=== PATIENT | male | born 1955 | race Caucasian/White ===

== ENCOUNTER → 2017-08-15 | Outpatient (CLI) | payer OTHER, SELFPAY | PROVIDERS: Visit Provider Emergency Medicine | DX: Z79.899 Other long term (current) drug therapy (principal) | CPT/HCPCS: 80305; 80364 ==

== ENCOUNTER → 2017-09-15 10:02 | Outpatient (REF) | payer OTHER, SELFPAY ==
[2017-09-15 14:53] LABS: Amphetamine/Metha Screen,Urine Negative ng/mL (<1000); Barbiturates Screen,Urine Negative ng/mL (<200); Benzodiazepines Screen,Urine Negative ng/mL (200); Cannabinoid Screen,Urine Negative ng/mL (<50); Cocaine Screen,Urine Negative ng/g (<300); Methadone Screen,Urine Negative ng/mL (<300); Opiate Screen,Urine Negative ng/mL (<300); Phencyclidine Screen,Urine Negative ng/mL (<25)
== END ==
LOC: LAB 10:02
PROVIDERS: Visit Provider Emergency Medicine
DX: Z79.899 Other long term (current) drug therapy (principal)
CPT/HCPCS: 80305

== ENCOUNTER → 2017-09-28 09:38 | Outpatient (POV) | payer OTHER, SELFPAY | PROVIDERS: PCP Emergency Medicine; Visit Provider Dermatology | DX: Z00.00 Encounter for general adult medical examination without abnormal findings (principal) ==

== ENCOUNTER → 2017-10-13 11:11 | Outpatient (CLI) | payer OTHER, SELFPAY ==
[2017-10-13 19:18] LABS: Amphetamine/Metha Screen,Urine Negative ng/mL (<1000); Barbiturates Screen,Urine Negative ng/mL (<200); Benzodiazepines Screen,Urine Negative ng/mL (200); Cannabinoid Screen,Urine Negative ng/mL (<50); Cocaine Screen,Urine Negative ng/g (<300); Methadone Screen,Urine Negative ng/mL (<300); Opiate Screen,Urine Negative ng/mL (<300); Phencyclidine Screen,Urine Negative ng/mL (<25)
== END ==
PROVIDERS: Visit Provider Emergency Medicine
DX: Z79.899 Other long term (current) drug therapy (principal)
CPT/HCPCS: 80305

== ENCOUNTER → 2017-10-30 12:09 | Outpatient (REF) | payer OTHER, SELFPAY | LOC: LAB 12:09 | PROVIDERS: Visit Provider Emergency Medicine | DX: N39.0 Urinary tract infection, site not specified (principal) | CPT/HCPCS: 87086 ==

== ENCOUNTER → 2017-11-17 13:20 | Outpatient (REF) | payer OTHER, SELFPAY ==
[2017-11-17 19:07] LABS: Amphetamine/Metha Screen,Urine Negative ng/mL (<1000); Barbiturates Screen,Urine Negative ng/mL (<200); Benzodiazepines Screen,Urine Negative ng/mL (200); Cannabinoid Screen,Urine Negative ng/mL (<50); Cocaine Screen,Urine Negative ng/g (<300); Methadone Screen,Urine Negative ng/mL (<300); Opiate Screen,Urine Negative ng/mL (<300); Phencyclidine Screen,Urine Negative ng/mL (<25)
== END ==
LOC: LAB 13:20
PROVIDERS: Visit Provider Emergency Medicine
DX: Z79.899 Other long term (current) drug therapy (principal)
CPT/HCPCS: 80305

== ENCOUNTER → 2017-12-15 09:01 | Outpatient (REF) | payer OTHER, SELFPAY ==
[2017-12-15 14:09] LABS: Basophils # 0.1 K/mm3 (0-0.2); Basophils % 0.7 % (0.1-2.0); Eosinophils # 0.2 K/mm3 (0.0-0.4); Eosinophils % 2.4 % (0.1-12.0); Hematocrit 51.5 % (42.0-52.0); Hemoglobin 16.5 g/dL (14.1-18.0); Lymphocytes # 2.8 K/mm3 (0.7-4.5); Lymphocytes % 35.1 K/mm3 (10-50); Mean Corpuscular Hemoglobin 31.7 pg (27.0-31.2); Mean Platelet Volume 8.4 fl (7.4-10.4); Monocytes # 0.5 K/mm3 (0.1-1.0); Monocytes % 5.7 % (1.7-9.3); Neutrophils # 4.5 K/mm3 (1.8-7.8); Neutrophils % 56.1 % (37.0-80.0); Platelet Count 343 K/mm3 (142-424); Red Cell Distribution Width 14.8 % (11.5-17.5); White Blood Count 8.1 K/mm3 (4.8-10.8)
[2017-12-15 14:40] LABS: Amphetamine/Metha Screen,Urine Negative ng/mL (<1000); Barbiturates Screen,Urine Negative ng/mL (<200); Benzodiazepines Screen,Urine Negative ng/mL (200); Cannabinoid Screen,Urine Negative ng/mL (<50); Cocaine Screen,Urine Negative ng/g (<300); Methadone Screen,Urine Negative ng/mL (<300); Opiate Screen,Urine Negative ng/mL (<300); Phencyclidine Screen,Urine Negative ng/mL (<25)
[2017-12-15 15:02] LABS: Alanine Aminotransferase 20 U/L (12-78); Albumin Level 4.2 gm/dL (3.4-5.0); Albumin/Globulin Ratio 1.2 (1.1-1.8); Alkaline Phosphatase 92 U/L (46-116); Anion Gap 16.7 mEq/L (5-15); Aspartate Amino Transferase 17 U/L (15-37); Bilirubin,Total 0.4 mg/dL (0.2-1.0); Blood Urea Nitrogen 9 mg/dL (7-18); Calcium 9.4 mg/dL (8.5-10.1); Carbon Dioxide 26 mmol/L (21.0-32.0); Chloride 104 mmol/L (98-107); Chol/HDL Ratio 4.4 (1-3.5); Cholesterol 227 mg/dL (140-200); Creatinine,Serum 0.84 mg/dL (0.70-1.30); Estimated Glomerular Filt Rate 93 ml/min (>60); GFR (African American) 112 ML/MIN (>60); Globulin 3.6 gm/dl (1.3-3.2); Glucose 121 mg/dL (74-106); HDL Cholesterol 52 mg/dL (27-67); LDL Cholesterol 164 mg/dL (0-130); Potassium 4.7 mmoL/L (3.5-5.1); Sodium 142 mmol/L (136-145); Total Protein,Serum 7.8 gm/dL (6.4-8.2); Triglycerides 54 mg/dL (30-200); VLDL Cholesterol 11 mg/dL (0-40)
[2017-12-17 18:48] LABS: PSA, Free 0.12 ng/mL; Prostate Specific Ag 0.5 ng/mL (0.0-4.0)
== END ==
LOC: LAB 09:01
PROVIDERS: Visit Provider Emergency Medicine
DX: Z79.899 Other long term (current) drug therapy (principal); I10 Essential (primary) hypertension
CPT/HCPCS: 80053; 80061; 80305; 82652; 84153; 84154; 85025

== ENCOUNTER → 2018-02-09 15:47 | Outpatient (CLI) | payer BC, SELFPAY ==
[2018-02-09 18:37] LABS: Amphetamine/Metha Screen,Urine Negative ng/mL (<1000); Barbiturates Screen,Urine Negative ng/mL (<200); Benzodiazepines Screen,Urine Negative ng/mL (200); Cannabinoid Screen,Urine Positive ng/mL (<50); Cocaine Screen,Urine Negative ng/g (<300); Methadone Screen,Urine Negative ng/mL (<300); Opiate Screen,Urine Positive ng/mL (<300); Phencyclidine Screen,Urine Negative ng/mL (<25)
== END ==
PROVIDERS: Visit Provider Emergency Medicine
DX: Z79.899 Other long term (current) drug therapy (principal)
CPT/HCPCS: 80305

== ENCOUNTER → 2018-03-01 09:13 | Outpatient (POV) | payer BC, SELFPAY | PROVIDERS: Visit Provider Dermatology | DX: Z00.00 Encounter for general adult medical examination without abnormal findings (principal) ==

== ENCOUNTER → 2018-03-14 10:44 | Outpatient (REF) | payer BC, SELFPAY ==
[2018-03-14 18:36] LABS: Amphetamine/Metha Screen,Urine Negative ng/mL (<1000); Barbiturates Screen,Urine Negative ng/mL (<200); Benzodiazepines Screen,Urine Negative ng/mL (<200); Cannabinoid Screen,Urine Positive ng/mL (<50); Cocaine Screen,Urine Negative ng/mL (<300); Methadone Screen,Urine Negative ng/mL (<300); Opiate Screen,Urine Negative ng/mL (<300); Phencyclidine Screen,Urine Negative ng/mL (<25)
== END ==
LOC: LAB 10:44
PROVIDERS: Visit Provider Emergency Medicine
DX: Z79.899 Other long term (current) drug therapy (principal)
CPT/HCPCS: 80305

== ENCOUNTER → 2018-04-13 11:14 | Outpatient (REF) | payer BC, SELFPAY ==
[2018-04-13 14:40] LABS: Amphetamine/Metha Screen,Urine Negative ng/mL (<1000); Barbiturates Screen,Urine Negative ng/mL (<200); Benzodiazepines Screen,Urine Negative ng/mL (<200); Cannabinoid Screen,Urine Positive ng/mL (<50); Cocaine Screen,Urine Negative ng/mL (<300); Methadone Screen,Urine Negative ng/mL (<300); Opiate Screen,Urine Negative ng/mL (<300); Phencyclidine Screen,Urine Negative ng/mL (<25)
== END ==
LOC: LAB 11:14
PROVIDERS: Visit Provider Emergency Medicine
DX: Z79.899 Other long term (current) drug therapy (principal)
CPT/HCPCS: 80305

== ENCOUNTER → 2018-05-11 11:39 | Outpatient (CLI) | payer BC, SELFPAY ==
[2018-05-11 18:43] LABS: Amphetamine/Metha Screen,Urine Negative ng/mL (<1000); Barbiturates Screen,Urine Negative ng/mL (<200); Benzodiazepines Screen,Urine Negative ng/mL (<200); Cannabinoid Screen,Urine Negative ng/mL (<50); Cocaine Screen,Urine Negative ng/mL (<300); Methadone Screen,Urine Negative ng/mL (<300); Opiate Screen,Urine Positive ng/mL (<300); Phencyclidine Screen,Urine Negative ng/mL (<25)
== END ==
PROVIDERS: Visit Provider Emergency Medicine
DX: Z79.899 Other long term (current) drug therapy (principal)
CPT/HCPCS: 80305

== ENCOUNTER → 2018-05-29 08:01 | Outpatient (POV) | payer BC, SELFPAY | PROVIDERS: Visit Provider Dermatology | DX: Z00.00 Encounter for general adult medical examination without abnormal findings (principal) ==

== ENCOUNTER → 2018-05-29 13:24 | Outpatient (CLI) | payer BC, SELFPAY ==
[2018-05-29 14:57] VITALS: PULSE 78; PULSE 84
== END ==
PROVIDERS: PCP Emergency Medicine; Visit Provider Emergency Medicine
DX: R05 Cough (principal)
CPT/HCPCS: 94060; 94640

== ENCOUNTER → 2018-06-13 10:52 | Outpatient (REF) | payer BC, SELFPAY ==
[2018-06-13 15:25] LABS: Amphetamine/Metha Screen,Urine Negative ng/mL (<1000); Barbiturates Screen,Urine Negative ng/mL (<200); Benzodiazepines Screen,Urine Negative ng/mL (<200); Cannabinoid Screen,Urine Positive ng/mL (<50); Cocaine Screen,Urine Negative ng/mL (<300); Methadone Screen,Urine Negative ng/mL (<300); Opiate Screen,Urine Positive ng/mL (<300); Phencyclidine Screen,Urine Negative ng/mL (<25)
== END ==
LOC: LAB 10:52
PROVIDERS: PCP Emergency Medicine; Visit Provider Emergency Medicine
DX: Z79.899 Other long term (current) drug therapy (principal)
CPT/HCPCS: 80305

== ENCOUNTER → 2018-07-11 13:48 | Outpatient (CLI) | payer BC, SELFPAY ==
[2018-07-11 14:35] LABS: Amphetamine/Metha Screen,Urine Negative ng/mL (<1000); Barbiturates Screen,Urine Negative ng/mL (<200); Benzodiazepines Screen,Urine Negative ng/mL (<200); Cannabinoid Screen,Urine Negative ng/mL (<50); Cocaine Screen,Urine Negative ng/mL (<300); Methadone Screen,Urine Negative ng/mL (<300); Opiate Screen,Urine Negative ng/mL (<300); Phencyclidine Screen,Urine Negative ng/mL (<25)
== END ==
PROVIDERS: Visit Provider Emergency Medicine
DX: Z79.899 Other long term (current) drug therapy (principal)
CPT/HCPCS: 80305

== ENCOUNTER → 2018-07-17 10:09 | Outpatient (CLI) | payer BC, SELFPAY ==
--- NOTE | 2018-07-17 10:14 | XR_ITS ---
XR shoulder RT min 2V HISTORY: Right shoulder pain ITS.REASON: axillary, ap and scapular y views ORDERING PHYSICIAN: Sushila Tillman MD PATIENT AGE: 63 years FINDINGS: No fracture or dislocation. No lytic or blastic change. There is normal mineralization. The joint spaces are well-preserved. No significant degenerative/arthritic changes. No erosive changes evident. IMPRESSION: Negative, no acute finding
== END ==
PROVIDERS: PCP Emergency Medicine; Visit Provider Orthopaedic Surgery
DX: M25.511 Pain in right shoulder (principal)
CPT/HCPCS: 73030

== ENCOUNTER → 2018-08-10 13:58 | Outpatient (CLI) | payer BC, SELFPAY ==
[2018-08-10 16:32] LABS: Amphetamine/Metha Screen,Urine Negative ng/mL (<1000); Barbiturates Screen,Urine Negative ng/mL (<200); Benzodiazepines Screen,Urine Negative ng/mL (<200); Cannabinoid Screen,Urine Negative ng/mL (<50); Cocaine Screen,Urine Negative ng/mL (<300); Methadone Screen,Urine Negative ng/mL (<300); Opiate Screen,Urine Positive ng/mL (<300); Phencyclidine Screen,Urine Negative ng/mL (<25)
[2018-08-18 15:13] LABS: Oxycodone (GC/MS) >100 ng/mL (Cutoff=100)
[2018-08-19 21:26] LABS: Opiates Negative (Cutoff=100); Oxymorphone (GC/MS) >100 ng/mL (Cutoff=100)
== END ==
PROVIDERS: Visit Provider Emergency Medicine
DX: Z79.899 Other long term (current) drug therapy (principal)
CPT/HCPCS: 80305; 80361; 80365; G0480

== ENCOUNTER 2018-08-16 08:00 | Outpatient (RCR) | payer BC, SELFPAY ==
--- NOTE | 2018-07-24 08:30 | HMH.OTOPEV ---
OT Inpatient Evaluation Rehab OT Outpatient Eval Start: 07/24/18 08:12 Freq: Status: Active Protocol: Document 07/24/18 08:12 TFRY (Rec: 07/24/18 08:30 TFRY [id number]) Electronically Signed By Kenyatta Caldwell OT 07/24/18 08:12 Outpatient Therapy Subjective History Subjective History THIS IS A 63 YEAR OLD RIGHT HANDED MALE REFERRED TO OCCUPATIONAL THERAPY FOR RIGHT SHOULDER PAIN, SUSPECT RUPTURE/TEAR OF LHBT VS. RTC TEAR H/O RTCT 2002. PATIENT REPORTS INJURING HIS SHOULDER APPROXIMATELY 3 WEEKS AGO. HE REPORTED THAT HE SAW THE DOCTOR LAST WEEK AND HAD AN INJECTION THAT HAS HELPED. Chief Complaint Pain Symptom Type Ache Throb Symptoms Relieved By Rest/Positioning Symptoms Aggravated By Physical Activity Prior Functional Limitations None Current Functional Limitations None Symptom Description Intermittent Level of pain today (0-10) 0 Pain scale - at its best (0-10) 0 Pain scale - at its worst (0-10) 5 Shoulder/Elbow Eval Shoulder Objective Measurements Palpation Tenderness tenderness over the bicipital tendon right shoulder exam standard Shoulder Palpation Findings Tenderness Shoulder ROM Right Shoulder Abduction Active Range of 138 Motion (degrees) Shoulder Flexion Active Range of Motion 145 (degrees) Query Text: Shoulder External Rotation Active Range 80 of Motion (degrees) Shoulder Internal Rotation Active Range 65 of Motion (degrees) Shoulder Extension Active Range of 58 Motion (degrees) pain with active ROM shoulder exam right standard decreased ROM shoulder exam standard right Shoulder MMT Shoulder Abduction Strength Grade 3+ Fair+ Shoulder Extension Strength Grade 3+ Fair+ Shoulder Flexion Strength Grade 3+ Fair+ Shoulder Horizontal Adduction Strength 3+ Fair+ Grade Shoulder External Rotation Strength 3+ Fair+ Grade Shoulder Internal Rotation Strength 3+ Fair+ Grade Shoulder Strength Patient Testing Sitting Position Shoulder Special Tests Shoulder Drop Arm Test Negative Right Shoulder Empty Can (Supraspinatus) Test Negative Right Shoulder Hodges-Benedicto Impingement Negative Right Test Elbow Objective Measurements OT Outpatient Assessment Impairments Problems/Im
== END 2018-08-16 08:05 | disposition home or self-care (01) ==
LOC: OT 08:00
PROVIDERS: Visit Provider Orthopaedic Surgery
DX: M25.511 Pain in right shoulder (principal)
CPT/HCPCS: 97014; 97110; 97165; G0283

== ENCOUNTER → 2018-09-05 14:48 | Outpatient (CLI) | payer BC, SELFPAY ==
[2018-09-05 16:44] LABS: Amphetamine/Metha Screen,Urine Negative ng/mL (<1000); Barbiturates Screen,Urine Negative ng/mL (<200); Benzodiazepines Screen,Urine Negative ng/mL (<200); Cannabinoid Screen,Urine Negative ng/mL (<50); Cocaine Screen,Urine Negative ng/mL (<300); Methadone Screen,Urine Negative ng/mL (<300); Opiate Screen,Urine Negative ng/mL (<300); Phencyclidine Screen,Urine Negative ng/mL (<25)
[2018-09-12 13:21] LABS: Oxycodone (GC/MS) 758 ng/mL (Cutoff=100)
[2018-09-14 17:04] LABS: Opiates Negative (Cutoff=100)
[2018-09-14 17:05] LABS: Oxymorphone (GC/MS) 360 ng/mL (Cutoff=100)
== END ==
PROVIDERS: Visit Provider Emergency Medicine
DX: R30.0 Dysuria (principal); Z79.899 Other long term (current) drug therapy
CPT/HCPCS: 80305; 80361; 80365; 87086; G0480

== ENCOUNTER → 2018-11-07 13:58 | Outpatient (CLI) | payer BC, SELFPAY ==
[2018-11-07 15:16] LABS: Amphetamine/Metha Screen,Urine Negative ng/mL (<1000); Barbiturates Screen,Urine Negative ng/mL (<200); Benzodiazepines Screen,Urine Negative ng/mL (<200); Cannabinoid Screen,Urine Positive ng/mL (<50); Cocaine Screen,Urine Negative ng/mL (<300); Methadone Screen,Urine Negative ng/mL (<300); Opiate Screen,Urine Positive ng/mL (<300); Phencyclidine Screen,Urine Negative ng/mL (<25)
== END ==
PROVIDERS: Visit Provider Emergency Medicine
DX: Z79.899 Other long term (current) drug therapy (principal)
CPT/HCPCS: 80305

== ENCOUNTER → 2018-11-27 13:53 | Outpatient (POV) | payer BC, SELFPAY | PROVIDERS: Visit Provider Dermatology | DX: Z00.00 Encounter for general adult medical examination without abnormal findings (principal) ==

== ENCOUNTER → 2019-01-09 13:53 | Outpatient (CLI) | payer BC, SELFPAY ==
[2019-01-09 16:51] LABS: Amphetamine/Metha Screen,Urine Negative ng/mL (<1000); Barbiturates Screen,Urine Negative ng/mL (<200); Benzodiazepines Screen,Urine Negative ng/mL (<200); Cannabinoid Screen,Urine Positive ng/mL (<50); Cocaine Screen,Urine Negative ng/mL (<300); Methadone Screen,Urine Negative ng/mL (<300); Opiate Screen,Urine Negative ng/mL (<300); Phencyclidine Screen,Urine Negative ng/mL (<25)
[2019-01-16 15:15] LABS: Oxycodone (GC/MS) 726 ng/mL (Cutoff=100)
[2019-01-17 12:36] LABS: Opiates Negative (Cutoff=100); Oxymorphone (GC/MS) 515 ng/mL (Cutoff=100)
== END ==
PROVIDERS: Visit Provider Emergency Medicine
DX: Z79.891 Long term (current) use of opiate analgesic (principal); Z79.899 Other long term (current) drug therapy
CPT/HCPCS: 80305; 80361; 80365; G0480

== ENCOUNTER → 2019-02-27 13:45 | Outpatient (CLI) | payer BC, SELFPAY ==
[2019-02-27 14:17] LABS: Basophils # 0.1 K/mm3 (0-0.2); Basophils % 0.7 % (0.1-2.0); Eosinophils # 0.3 K/mm3 (0.0-0.4); Eosinophils % 3.3 % (0.1-12.0); Hematocrit 53.1 % (42.0-52.0); Hemoglobin 16.6 g/dL (14.1-18.0); Lymphocytes # 3.6 K/mm3 (0.7-4.5); Lymphocytes % 38.9 % (10-50); Mean Corpuscular HGB Conc 31.3 g/dL (31.8-35.4); Mean Corpuscular Hemoglobin 31.9 pg (27.0-31.2); Mean Corpuscular Volume 102.2 fl (80-94); Mean Platelet Volume 8.6 fl (7.4-10.4); Monocytes # 0.5 K/mm3 (0.1-1.0); Monocytes % 5.5 % (1.7-9.3); Neutrophils # 4.7 K/mm3 (1.8-7.8); Neutrophils % 51.7 % (37.0-80.0); Platelet Count 325 K/mm3 (142-424); Red Cell Distribution Width 14.2 % (11.5-17.5); White Blood Count 9.2 K/mm3 (4.8-10.8)
[2019-02-27 15:10] LABS: Alanine Aminotransferase 26 U/L (12-78); Albumin/Globulin Ratio 1.2 (1.1-1.8); Alkaline Phosphatase 100 U/L (46-116); Anion Gap 14.5 mEq/L (5-15); Aspartate Amino Transferase 21 U/L (15-37); Bilirubin,Total 0.6 mg/dL (0.2-1.0); Blood Urea Nitrogen 18 mg/dL (7-18); Calcium 9.1 mg/dL (8.5-10.1); Carbon Dioxide 27 mmol/L (21.0-32.0); Chloride 102 mmol/L (98-107); Chol/HDL Ratio 3.9 (1-3.5); Cholesterol 205 mg/dL (140-200); Creatinine,Serum 0.94 mg/dL (0.70-1.30); Estimated Glomerular Filt Rate 81 ml/min (>60); GFR (African American) 98 ML/MIN (>60); Globulin 3.4 gm/dl (1.3-3.2); Glucose 110 mg/dL (74-106); HDL Cholesterol 52 mg/dL (27-67); LDL Cholesterol 141 mg/dL (0-130); Potassium 4.5 mmoL/L (3.5-5.1); Prostate Specific Ag Screen 0.3 ng/mL (0.0-4.0); Sodium 139 mmol/L (136-145); T4 (Thyroxine) 6.8 ug/dl (4.7-13.3); Total Protein,Serum 7.4 gm/dL (6.4-8.2); Triglycerides 62 mg/dL (30-200); VLDL Cholesterol 12 mg/dL (0-40)
[2019-02-27 15:42] LABS: Amphetamine/Metha Screen,Urine Negative ng/mL (<1000); Barbiturates Screen,Urine Negative ng/mL (<200); Benzodiazepines Screen,Urine Negative ng/mL (<200); Cannabinoid Screen,Urine Positive ng/mL (<50); Cocaine Screen,Urine Negative ng/mL (<300); Methadone Screen,Urine Negative ng/mL (<300); Opiate Screen,Urine Positive ng/mL (<300); Phencyclidine Screen,Urine Negative ng/mL (<25)
[2019-03-01 07:14] LABS: Vitamin D 25 Hydroxy 40.8 ng/mL (30.0-100.0)
== END ==
PROVIDERS: Visit Provider Emergency Medicine
DX: R53.83 Other fatigue (principal); Z79.899 Other long term (current) drug therapy
CPT/HCPCS: 80053; 80061; 80305; 82652; 84436; 84443; 85025; G0103

== ENCOUNTER → 2019-03-13 08:05 | Outpatient (CLI) | payer BC, SELFPAY ==
[2019-03-13 10:28] LABS: Hemoglobin A1C 5.6 % (0.0-7.0)
[2019-03-14 22:06] LABS: Folate 13.7 ng/mL (>3.0); Vitamin B12 547 pg/mL (232-1245)
== END ==
PROVIDERS: Visit Provider Physician Assistant
DX: R71.8 Other abnormality of red blood cells (principal); R73.9 Hyperglycemia, unspecified
CPT/HCPCS: 36415; 82607; 82746; 83036

== ENCOUNTER → 2019-04-16 09:19 | Outpatient (POV) | payer BC, SELFPAY | PROVIDERS: Visit Provider Dermatology | DX: Z00.00 Encounter for general adult medical examination without abnormal findings (principal) ==

== ENCOUNTER → 2019-04-26 13:43 | Outpatient (CLI) | payer BC, SELFPAY ==
[2019-04-26 15:06] LABS: Amphetamine/Metha Screen,Urine Negative ng/mL (<1000); Barbiturates Screen,Urine Negative ng/mL (<200); Benzodiazepines Screen,Urine Negative ng/mL (<200); Cannabinoid Screen,Urine Positive ng/mL (<50); Cocaine Screen,Urine Negative ng/mL (<300); Methadone Screen,Urine Negative ng/mL (<300); Opiate Screen,Urine Positive ng/mL (<300); Phencyclidine Screen,Urine Negative ng/mL (<25)
== END ==
PROVIDERS: Visit Provider Emergency Medicine
DX: M54.9 Dorsalgia, unspecified (principal)
CPT/HCPCS: 80305

== ENCOUNTER → 2019-07-09 14:39 | Outpatient (CLI) | payer BC, SELFPAY ==
[2019-07-09 18:47] LABS: Amphetamine/Metha Screen,Urine Negative ng/mL (<1000); Barbiturates Screen,Urine Negative ng/mL (<200); Benzodiazepines Screen,Urine Negative ng/mL (<200); Cannabinoid Screen,Urine Positive ng/mL (<50); Cocaine Screen,Urine Negative ng/mL (<300); Methadone Screen,Urine Negative ng/mL (<300); Opiate Screen,Urine Positive ng/mL (<300); Phencyclidine Screen,Urine Negative ng/mL (<25)
== END ==
PROVIDERS: Visit Provider Emergency Medicine
DX: Z79.899 Other long term (current) drug therapy (principal)
CPT/HCPCS: 80305

== ENCOUNTER → 2019-09-02 09:36 | Outpatient (CLI) | payer BC, SELFPAY ==
--- NOTE | 2019-09-02 09:42 | XR_ITS ---
PROCEDURE: XR SHOULDER RT MIN 2V CLINICAL INDICATION: shoulder pain COMPARISON: SHOULDCMRT XR shoulder RT min 2V from 07/17/2018 FINDINGS: There is mild subacromial stenosis with hypertrophic changes along the inferior aspect of the a chromium with calcification between the acromion and humeral head consistent with calcific tendinitis. Mild osteoarthritic changes are present at the glenohumeral joint. No acute fracture or dislocation is evident. 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 These findings have progressed since 07/17/2018 Dictated by: Gerardo Bo MD 09/02/2019 10:09 Electronically signed by Gerardo Bo MD in [place] 09/02/2019 10:09
== END ==
PROVIDERS: PCP Emergency Medicine; Visit Provider Orthopaedic Surgery
DX: M25.511 Pain in right shoulder (principal)
CPT/HCPCS: 73030

== ENCOUNTER → 2019-09-06 14:04 | Outpatient (CLI) | payer BC, SELFPAY ==
[2019-09-06 17:46] LABS: Amphetamine/Metha Screen,Urine Negative ng/mL (<1000); Barbiturates Screen,Urine Negative ng/mL (<200); Benzodiazepines Screen,Urine Negative ng/mL (<200); Cannabinoid Screen,Urine Positive ng/mL (<50); Cocaine Screen,Urine Negative ng/mL (<300); Methadone Screen,Urine Negative ng/mL (<300); Opiate Screen,Urine Positive ng/mL (<300); Phencyclidine Screen,Urine Negative ng/mL (<25)
== END ==
PROVIDERS: Visit Provider Emergency Medicine
DX: G89.29 Other chronic pain (principal); M54.9 Dorsalgia, unspecified
CPT/HCPCS: 80305

== ENCOUNTER → 2019-10-29 08:11 | Outpatient (POV) | payer BC, SELFPAY | PROVIDERS: PCP Dermatology; Visit Provider Dermatology | DX: Z00.00 Encounter for general adult medical examination without abnormal findings (principal) ==

== ENCOUNTER → 2020-03-02 17:16 | Outpatient (CLI) | payer BC, SELFPAY | PROVIDERS: Visit Provider Emergency Medicine | DX: R31.9 Hematuria, unspecified (principal) | CPT/HCPCS: 87086 ==

== ENCOUNTER → 2020-03-09 16:02 | Outpatient (CLI) | payer BC, SELFPAY ==
[2020-03-28 19:32] LABS: Composition SEE BELOW:; Size 5X6 mm; Specimen Type NOT PROVIDED
[2020-03-28 19:33] LABS: Ca oxalate dihydrate 100%; Photo TO FOLLOW
== END ==
PROVIDERS: Visit Provider Urology
DX: N20.0 Calculus of kidney (principal)
CPT/HCPCS: 82370

== ENCOUNTER → 2020-03-11 10:39 | Outpatient (CLI) | payer BC, SELFPAY ==
--- NOTE | 2020-03-11 10:44 | XR_ITS ---
PROCEDURE: XR KUB CLINICAL INDICATION: kidney stoen Pain COMPARISON: No exams were available for comparison FINDINGS: There is an epidural stimulator device present with the generator in the supra iliac region on the left . Nonspecific bowel gas pattern. There are some gas-filled loops of small and large bowel which are nondistended. No evidence of intestinal obstruction. Degenerative changes lumbar spine. Other findings:Small opacities are present in the left mid abdominal region and right lower quadrant possibly due to ingested material. IMPRESSION: Nonspecific nonacute findings Dictated by: Gerardo Bo MD 03/11/2020 12:49 Electronically signed by Gerardo Bo MD in [place] 03/11/2020 12:49
== END ==
PROVIDERS: PCP Emergency Medicine; Visit Provider Urology
DX: N20.0 Calculus of kidney (principal)
CPT/HCPCS: 74018

== ENCOUNTER → 2020-04-14 09:09 | Outpatient (POV) | payer BC, SELFPAY | PROVIDERS: Visit Provider Dermatology | DX: Z00.00 Encounter for general adult medical examination without abnormal findings (principal) ==

== ENCOUNTER → 2020-06-29 15:21 | Outpatient (CLI) | payer BC, SELFPAY ==
[2020-06-29 15:50] LABS: Basophils % 0.3 % (0.1-2.0); Eosinophils # 0.1 K/mm3 (0.0-0.4); Eosinophils % 1.2 % (0.1-12.0); Hematocrit 54.3 % (42.0-52.0); Lymphocytes # 2.7 K/mm3 (0.7-4.5); Mean Corpuscular HGB Conc 33.5 g/dL (31.8-35.4); Mean Corpuscular Hemoglobin 33.6 pg (27.0-31.2); Mean Corpuscular Volume 100.4 fl (80-94); Mean Platelet Volume 8.6 fl (7.4-10.4); Monocytes # 0.5 K/mm3 (0.1-1.0); Monocytes % 4.7 % (1.7-9.3); Neutrophils % 67.7 % (37.0-80.0); Platelet Count 293 K/mm3 (142-424); Red Blood Count 5.41 M/mm3 (4.60-6.20); Red Cell Distribution Width 14.3 % (11.5-17.5); White Blood Count 10.3 K/mm3 (4.8-10.8)
[2020-06-29 15:56] LABS: Alanine Aminotransferase 21 U/L (12-78); Albumin/Globulin Ratio 1.6 (1.1-1.8); Alkaline Phosphatase 104 U/L (38-126); Aspartate Amino Transferase 32 U/L (17-59); Bilirubin,Total 0.6 mg/dl (0.2-1.3); Blood Urea Nitrogen 8 mg/dl (9-20); Carbon Dioxide 28 mmol/L (22.0-30.0); Cholesterol 246 mg/dl (140-200); Estimated Glomerular Filt Rate 97 ml/min (>60); GFR (African American) 118 ML/MIN (>60); Globulin 3.2 g/dL (1.3-3.2); Total Protein,Serum 8.2 g/dl (6.3-8.2); Triglycerides 186 mg/dl (30-150); VLDL Cholesterol 37 mg/dL (0-40)
[2020-06-29 16:03] LABS: Chol/HDL Ratio 4.6 (1-3.5); HDL Cholesterol 54 mg/dl (40-60)
[2020-06-29 16:07] LABS: Direct LDL Cholesterol 146.94 mg/dL (100-129)
[2020-06-29 16:13] LABS: T4 (Thyroxine) 6.6 ug/dl (5.53-11.0)
[2020-06-29 16:20] LABS: 25-OH Vitamin D, Total 38.4 ng/mL (30-100)
[2020-06-29 16:27] LABS: Thyroid Stimulating Hormone 1.75 uIU/mL (0.465-4.68)
[2020-06-29 18:20] LABS: Hemoglobin 18.2 g/dL (14.1-18.0)
[2020-06-29 18:32] LABS: Anion Gap 16.7 mEq/L (5-15); Potassium 4.7 mmoL/L (3.5-5.1); Sodium 143 mmol/L (136-145)
[2020-06-29 18:35] LABS: Calcium 10.5 mg/dl (8.4-10.2); Glucose 117 mg/dl (74-100)
[2020-06-29 18:42] LABS: Chloride 103 mmol/L (98-107)
== END ==
PROVIDERS: Visit Provider Emergency Medicine
DX: E78.5 Hyperlipidemia, unspecified (principal); I10 Essential (primary) hypertension; K21.9 Gastro-esophageal reflux disease without esophagitis; M54.16 Radiculopathy, lumbar region; E66.3 Overweight; Z72.0 Tobacco use
CPT/HCPCS: 80053; 80061; 82306; 84436; 84443; 85025

== ENCOUNTER → 2020-10-27 14:57 | Outpatient (CLI) | payer BC, SELFPAY ==
[2020-10-27 16:53] LABS: Amphetamine/Metha Screen,Urine Negative ng/ml (<1000)
[2020-10-27 16:54] LABS: Barbiturates Screen,Urine Negative ng/ml (<200)
[2020-10-27 16:56] LABS: Benzodiazepines Screen,Urine Negative ng/ml (<200)
[2020-10-27 16:57] LABS: Cannabinoid Screen,Urine Positive ng/ml (<50)
[2020-10-27 16:58] LABS: Cocaine Screen,Urine Negative ng/ml (<300); Methadone Screen,Urine Negative ng/ml (<300)
[2020-10-27 16:59] LABS: Phencyclidine Screen,Urine Negative ng/ml (<25)
[2020-10-27 17:30] LABS: Opiate Screen,Urine Negative ng/ml (<300)
== END ==
PROVIDERS: Visit Provider Emergency Medicine
DX: Z79.899 Other long term (current) drug therapy (principal)
CPT/HCPCS: 80305

== ENCOUNTER → 2020-12-28 13:55 | Outpatient (CLI) | payer BC, SELFPAY ==
[2020-12-28 15:30] LABS: Benzodiazepines Screen,Urine Negative ng/ml (<200)
[2020-12-28 15:31] LABS: Amphetamine/Metha Screen,Urine Negative ng/ml (<1000); Barbiturates Screen,Urine Negative ng/ml (<200)
[2020-12-28 15:33] LABS: Cannabinoid Screen,Urine Positive ng/ml (<50); Cocaine Screen,Urine Negative ng/ml (<300)
[2020-12-28 15:34] LABS: Opiate Screen,Urine Positive ng/ml (<300)
[2020-12-28 15:58] LABS: Methadone Screen,Urine Negative ng/ml (<300)
[2020-12-28 16:49] LABS: Phencyclidine Screen,Urine Negative ng/ml (<25)
== END ==
PROVIDERS: Visit Provider Emergency Medicine
DX: Z79.899 Other long term (current) drug therapy (principal)
CPT/HCPCS: 80305

== ENCOUNTER → 2021-01-08 09:34 | Outpatient (CLI) | payer BC, SELFPAY ==
--- NOTE | 2021-01-08 09:39 | XR_ITS ---
PROCEDURE: XR SHOULDER RT MIN 2V CLINICAL INDICATION: RT shoulder COMPARISON: CR SHOULDCMRT XR shoulder RT min 2V from 07/17/2018 CR XR SHOULDER RT MIN 2V from 09/02/2019 FINDINGS: No acute fractures or dislocations. Bone density is normal. No periarticular calcifications. No significant soft tissue abnormality. Visualized right hemithorax is unremarkable. IMPRESSION: No acute abnormality. Dictated by: Heena Puentes 01/08/2021 12:02 Heena Puentes in [place] 01/08/2021 12:02
== END ==
PROVIDERS: PCP Emergency Medicine; Visit Provider Orthopaedic Surgery
DX: M25.511 Pain in right shoulder (principal)
CPT/HCPCS: 73030

== ENCOUNTER → 2021-02-22 13:35 | Outpatient (CLI) | payer BC, SELFPAY ==
[2021-02-22 17:39] LABS: Amphetamine/Metha Screen,Urine Negative ng/ml (<1000); Barbiturates Screen,Urine Negative ng/ml (<200)
[2021-02-22 17:40] LABS: Benzodiazepines Screen,Urine Negative ng/ml (<200); Cannabinoid Screen,Urine Positive ng/ml (<50)
[2021-02-22 17:41] LABS: Cocaine Screen,Urine Negative ng/ml (<300)
[2021-02-22 17:42] LABS: Methadone Screen,Urine Negative ng/ml (<300)
[2021-02-22 17:43] LABS: Opiate Screen,Urine Positive ng/ml (<300); Phencyclidine Screen,Urine Negative ng/ml (<25)
== END ==
PROVIDERS: Visit Provider Emergency Medicine
DX: M51.36 Other intervertebral disc degeneration, lumbar region (principal)
CPT/HCPCS: 80305

== ENCOUNTER → 2021-02-23 10:32 | Outpatient (POV) | payer BC, SELFPAY | PROVIDERS: Visit Provider Dermatology | DX: Z00.00 Encounter for general adult medical examination without abnormal findings (principal) ==

== ENCOUNTER → 2021-04-30 13:39 | Outpatient (CLI) | payer MEDICARE, SELFPAY ==
[2021-04-30 14:46] LABS: Basophils # 0.1 K/mm3 (0-0.2); Basophils % 1.2 % (0.1-2.0); Eosinophils # 0.3 K/mm3 (0.0-0.4); Eosinophils % 4.3 % (0.1-12.0); Hematocrit 52.3 % (42.0-52.0); Lymphocytes # 2.3 K/mm3 (0.7-4.5); Mean Corpuscular HGB Conc 32.5 g/dL (31.8-35.4); Mean Corpuscular Hemoglobin 33.1 pg (27.0-31.2); Mean Corpuscular Volume 101.9 fl (80-94); Mean Platelet Volume 9.8 fl (7.4-10.4); Monocytes # 0.4 K/mm3 (0.1-1.0); Monocytes % 5.7 % (1.7-9.3); Neutrophils # 3.6 K/mm3 (1.8-7.8); Neutrophils % 53.7 % (37.0-80.0); Platelet Count 352 K/mm3 (142-424); Red Blood Count 5.13 M/mm3 (4.60-6.20); Red Cell Distribution Width 13.6 % (11.5-17.5); White Blood Count 6.6 K/mm3 (4.8-10.8)
[2021-04-30 15:09] LABS: Alanine Aminotransferase 21 U/L (12-78); Albumin Level 4.7 g/dl (3.5-5.0); Albumin/Globulin Ratio 1.3 (1.1-1.8); Alkaline Phosphatase 102 U/L (38-126); Anion Gap 16.8 mEq/L (5-15); Aspartate Amino Transferase 33 U/L (17-59); Bilirubin,Total 0.8 mg/dl (0.2-1.3); Blood Urea Nitrogen 11 mg/dl (9-20); Calcium 9.7 mg/dl (8.4-10.2); Carbon Dioxide 28 mmol/L (22.0-30.0); Chloride 102 mmol/L (98-107); Chol/HDL Ratio 4.3 (1-3.5); Cholesterol 240 mg/dl (140-200); Estimated Glomerular Filt Rate 113 ml/min (>60); GFR (African American) 137 ML/MIN (>60); Globulin 3.5 g/dL (1.3-3.2); Glucose 108 mg/dl (74-100); HDL Cholesterol 56 mg/dl (40-60); Potassium 4.8 mmoL/L (3.5-5.1); Sodium 142 mmol/L (136-145); Total Protein,Serum 8.2 g/dl (6.3-8.2); Triglycerides 143 mg/dl (30-150); VLDL Cholesterol 29 mg/dL (0-40)
[2021-04-30 15:26] LABS: 25-OH Vitamin D, Total 40.9 ng/mL (30-100)
[2021-04-30 15:27] LABS: T4 (Thyroxine) 6.9 ug/dl (5.53-11.0)
[2021-04-30 15:40] LABS: Prostate Specific Ag Screen 0.3 ng/ml (0.0-4.0); Thyroid Stimulating Hormone 1.82 uIU/mL (0.465-4.68)
[2021-04-30 15:46] LABS: Amphetamine/Metha Screen,Urine Negative ng/ml (<1000); Barbiturates Screen,Urine Negative ng/ml (<200)
[2021-04-30 15:47] LABS: Benzodiazepines Screen,Urine Negative ng/ml (<200); Cannabinoid Screen,Urine Positive ng/ml (<50)
[2021-04-30 15:48] LABS: Cocaine Screen,Urine Negative ng/ml (<300)
[2021-04-30 15:49] LABS: Methadone Screen,Urine Negative ng/ml (<300); Opiate Screen,Urine Positive ng/ml (<300)
[2021-04-30 15:50] LABS: Phencyclidine Screen,Urine Negative ng/ml (<25)
== END ==
PROVIDERS: Visit Provider Emergency Medicine
DX: E66.3 Overweight (principal); E78.5 Hyperlipidemia, unspecified; I10 Essential (primary) hypertension; M51.36 Other intervertebral disc degeneration, lumbar region; Z12.5 Encounter for screening for malignant neoplasm of prostate; E55.9 Vitamin D deficiency, unspecified; Z68.29 Body mass index [BMI] 29.0-29.9, adult
CPT/HCPCS: 80053; 80061; 80305; 82306; 84436; 84443; 85025; G0103

== ENCOUNTER → 2021-06-03 08:34 | Outpatient (CLI) | payer MEDICARE, SELFPAY ==
--- NOTE | 2021-06-03 08:37 | US_ITS ---
APPROVED REPORT Exam Type: Lower Extremity Segmental Pressures Customer Sales Representative: Shanda Hudson RVT Indications Claudication: Bilaterally Current Smoker CLAUDICATION BLE'S Risk Factors Hypertension Hyperlipidemia Current Smoker Pressures/Indices Right Indices Left Indices Brachial 158.00 mmHg Brachial 164.00 mmHg Low Thigh 70.00 mmHg 0.43 Low Thigh 97.00 mmHg 0.59 Calf 63.00 mmHg 0.38 Calf 100.00 mmHg 0.61 Ankle(PT) 50.00 mmHg 0.30 Ankle(PT) 74.00 mmHg 0.45 Ankle(DP) Ankle(DP) 86.00 mmHg 0.52 Digit Digit 78.00 mmHg 0.48 Findings RT DAPHNIE:0.30 LT DAPHNIE:0.52 RT TBI:UNABLE TO OBTAIN LT TBI:0.48 UNABLE TO OBTAIN RIGHT DP DECREASED PULSES BILATERALLY ABNORMAL WAVEFORMS BILATERALLY SEVERE ARTERIAL DISEASE BILATERALLY. Conclusion RT TBI:UNABLE TO OBTAIN LT TBI:0.48 UNABLE TO OBTAIN RIGHT DP DECREASED PULSES BILATERALLY ABNORMAL WAVEFORMS BILATERALLY SEVERE ARTERIAL DISEASE BILATERALLY. Electronically signed by : Dr. Lonnie Stevens MD 06/03/2021 09:32:49
== END ==
PROVIDERS: PCP Emergency Medicine; Visit Provider Orthopaedic Surgery
DX: R09.89 Other specified symptoms and signs involving the circulatory and respiratory systems (principal)
CPT/HCPCS: 93923

== ENCOUNTER → 2021-07-27 14:07 | Outpatient (CLI) | payer MEDICARE, SELFPAY ==
[2021-07-27 16:12] LABS: Amphetamine/Metha Screen,Urine Negative ng/ml (<1000); Barbiturates Screen,Urine Negative ng/ml (<200)
[2021-07-27 16:13] LABS: Benzodiazepines Screen,Urine Negative ng/ml (<200); Cannabinoid Screen,Urine Positive ng/ml (<50)
[2021-07-27 16:14] LABS: Cocaine Screen,Urine Negative ng/ml (<300)
[2021-07-27 16:15] LABS: Methadone Screen,Urine Negative ng/ml (<300)
[2021-07-27 16:16] LABS: Opiate Screen,Urine Negative ng/ml (<300); Phencyclidine Screen,Urine Negative ng/ml (<25)
== END ==
PROVIDERS: Visit Provider Emergency Medicine
DX: M51.36 Other intervertebral disc degeneration, lumbar region (principal)
CPT/HCPCS: 80305

== ENCOUNTER → 2022-01-26 15:36 | Outpatient (CLI) | payer MEDICARE, SELFPAY ==
[2022-01-26 15:55] LABS: Amphetamine/Metha Screen,Urine Negative ng/ml (<1000)
[2022-01-26 15:56] LABS: Barbiturates Screen,Urine Negative ng/ml (<200); Benzodiazepines Screen,Urine Negative ng/ml (<200)
[2022-01-26 15:57] LABS: Cannabinoid Screen,Urine Positive ng/ml (<50)
[2022-01-26 15:58] LABS: Cocaine Screen,Urine Negative ng/ml (<300)
[2022-01-26 15:59] LABS: Methadone Screen,Urine Negative ng/ml (<300)
[2022-01-26 16:00] LABS: Opiate Screen,Urine Positive ng/ml (<300)
[2022-01-26 16:01] LABS: Phencyclidine Screen,Urine Negative ng/ml (<25)
== END ==
PROVIDERS: PCP Emergency Medicine; Visit Provider Emergency Medicine
DX: M51.36 Other intervertebral disc degeneration, lumbar region (principal)
CPT/HCPCS: 80305

== ENCOUNTER → 2022-03-21 13:33 | Outpatient (CLI) | payer MEDICARE, SELFPAY ==
[2022-03-21 13:13] LABS: Basophils # 0.1 K/mm3 (0-0.2); Basophils % 0.9 % (0.1-2.0); Eosinophils # 0.2 K/mm3 (0.0-0.4); Hematocrit 45.8 % (42.0-52.0); Hemoglobin 15.7 g/dL (14.1-18.0); Lymphocytes # 2.4 K/mm3 (0.7-4.5); Lymphocytes % 30.8 % (10-50); Mean Corpuscular HGB Conc 34.3 g/dL (31.8-35.4); Mean Corpuscular Hemoglobin 32.9 pg (27.0-31.2); Mean Corpuscular Volume 95.8 fl (80-94); Mean Platelet Volume 8.5 fl (7.4-10.4); Monocytes # 0.5 K/mm3 (0.1-1.0); Monocytes % 6.9 % (1.7-9.3); Neutrophils # 4.5 K/mm3 (1.8-7.8); Neutrophils % 58.4 % (37.0-80.0); Platelet Count 285 K/mm3 (142-424); Red Blood Count 4.78 M/mm3 (4.60-6.20); Red Cell Distribution Width 13.1 % (11.5-17.5); White Blood Count 7.7 K/mm3 (4.8-10.8)
[2022-03-21 13:24] LABS: Alanine Aminotransferase 37 U/L (12-78); Albumin Level 4.4 g/dl (3.5-5.0); Albumin/Globulin Ratio 1.5 (1.1-1.8); Alkaline Phosphatase 115 U/L (38-126); Anion Gap 11.7 mEq/L (5-15); Aspartate Amino Transferase 37 U/L (17-59); Blood Urea Nitrogen 17 mg/dl (9-20); Calcium 9.5 mg/dl (8.4-10.2); Carbon Dioxide 28 mmol/L (22.0-30.0); Chloride 104 mmol/L (98-107); Cholesterol 167 mg/dl (140-200); Estimated Glomerular Filt Rate 85 ml/min (>60); GFR (African American) 102 ML/MIN (>60); Glucose 107 mg/dl (74-100); HDL Cholesterol 55 mg/dl (40-60); Potassium 4.7 mmoL/L (3.5-5.1); Sodium 139 mmol/L (136-145); Total Protein,Serum 7.4 g/dl (6.3-8.2); Triglycerides 83 mg/dl (30-150); VLDL Cholesterol 17 mg/dL (0-40)
[2022-03-21 13:30] LABS: Bilirubin,Total < 0.1 mg/dl (0.2-1.3)
[2022-03-21 13:35] LABS: Direct LDL Cholesterol 83.53 mg/dL (100-129)
[2022-03-21 13:40] LABS: 25-OH Vitamin D, Total 41.5 ng/mL (30-100)
[2022-03-21 13:41] LABS: Free T4 (Free Thyroxine) 1.03 ng/dl (0.78-2.19)
[2022-03-21 13:56] LABS: Thyroid Stimulating Hormone 1.27 uIU/mL (0.465-4.68)
[2022-03-22 08:31] LABS: Testosterone,Total 396 ng/dL (264-916)
== END ==
PROVIDERS: PCP Emergency Medicine; Visit Provider Emergency Medicine
DX: E66.3 Overweight (principal); R53.83 Other fatigue; S30.1XXA Contusion of abdominal wall, initial encounter; E55.9 Vitamin D deficiency, unspecified; Z68.30 Body mass index [BMI] 30.0-30.9, adult
CPT/HCPCS: 80053; 80061; 82306; 84403; 84439; 84443; 85025

== ENCOUNTER → 2022-05-20 13:54 | Outpatient (CLI) | payer MEDICARE, SELFPAY ==
[2022-05-20 15:21] LABS: Amphetamine/Metha Screen,Urine Negative ng/ml (<1000)
[2022-05-20 15:22] LABS: Barbiturates Screen,Urine Negative ng/ml (<200); Benzodiazepines Screen,Urine Negative ng/ml (<200)
[2022-05-20 15:23] LABS: Cannabinoid Screen,Urine Positive ng/ml (<50); Cocaine Screen,Urine Negative ng/ml (<300)
[2022-05-20 15:24] LABS: Methadone Screen,Urine Negative ng/ml (<300)
[2022-05-20 15:25] LABS: Opiate Screen,Urine Negative ng/ml (<300)
[2022-05-20 15:27] LABS: Phencyclidine Screen,Urine Negative ng/ml (<25)
== END ==
PROVIDERS: PCP Emergency Medicine; Visit Provider Emergency Medicine
DX: M51.36 Other intervertebral disc degeneration, lumbar region (principal)
CPT/HCPCS: 80305

== ENCOUNTER → 2023-01-18 10:05 | Outpatient (CLI) | payer MEDICARE, SELFPAY ==
[2023-01-18 18:37] LABS: Amphetamine/Metha Screen,Urine Negative ng/ml (<1000)
[2023-01-18 18:38] LABS: Barbiturates Screen,Urine Negative ng/ml (<200); Benzodiazepines Screen,Urine Negative ng/ml (<200)
[2023-01-18 18:39] LABS: Cannabinoid Screen,Urine Positive ng/ml (<50); Cocaine Screen,Urine Negative ng/ml (<300)
[2023-01-18 18:40] LABS: Methadone Screen,Urine Negative ng/ml (<300)
[2023-01-18 18:41] LABS: Opiate Screen,Urine Positive ng/ml (<300)
[2023-01-18 18:43] LABS: Phencyclidine Screen,Urine Negative ng/ml (<25)
== END ==
PROVIDERS: PCP Emergency Medicine; Visit Provider Emergency Medicine
DX: M51.36 Other intervertebral disc degeneration, lumbar region (principal)
CPT/HCPCS: 80305

== ENCOUNTER → 2023-03-08 11:00 | Outpatient (CLI) | payer MEDICARE, SELFPAY ==
[2023-03-08 18:54] LABS: Basophils % 0.3 % (0.1-2.0); Eosinophils # 0.1 K/mm3 (0.0-0.4); Eosinophils % 0.6 % (0.1-12.0); Hematocrit 51.3 % (42.0-52.0); Hemoglobin 16.5 g/dL (14.1-18.0); Lymphocytes # 2.3 K/mm3 (0.7-4.5); Lymphocytes % 20.1 % (10-50); Mean Corpuscular HGB Conc 32.2 g/dL (31.8-35.4); Mean Corpuscular Hemoglobin 31.5 pg (27.0-31.2); Mean Corpuscular Volume 97.7 fl (80-94); Mean Platelet Volume 9.3 fl (7.4-10.4); Monocytes # 0.6 K/mm3 (0.1-1.0); Monocytes % 5.5 % (1.7-9.3); Neutrophils # 8.4 K/mm3 (1.8-7.8); Neutrophils % 73.6 % (37.0-80.0); Platelet Count 272 K/mm3 (142-424); Red Blood Count 5.25 M/mm3 (4.60-6.20); Red Cell Distribution Width 13.6 % (11.5-17.5); White Blood Count 11.5 K/mm3 (4.8-10.8)
[2023-03-08 19:26] LABS: Amphetamine/Metha Screen,Urine Negative ng/ml (<1000); Barbiturates Screen,Urine Negative ng/ml (<200)
[2023-03-08 19:27] LABS: Benzodiazepines Screen,Urine Negative ng/ml (<200); Cannabinoid Screen,Urine Positive ng/ml (<50)
[2023-03-08 19:28] LABS: Cocaine Screen,Urine Negative ng/ml (<300)
[2023-03-08 19:29] LABS: Methadone Screen,Urine Negative ng/ml (<300); Opiate Screen,Urine Positive ng/ml (<300)
[2023-03-08 19:30] LABS: Phencyclidine Screen,Urine Negative ng/ml (<25)
[2023-03-08 19:33] LABS: 25-OH Vitamin D, Total 30.5 ng/mL (30-100)
[2023-03-08 19:48] LABS: Alanine Aminotransferase 31 U/L (12-78); Albumin Level 5.1 g/dl (3.5-5.0); Albumin/Globulin Ratio 1.6 (1.1-1.8); Alkaline Phosphatase 115 U/L (38-126); Anion Gap 17.4 mEq/L (5-15); Aspartate Amino Transferase 40 U/L (17-59); Bilirubin,Total 0.7 mg/dl (0.2-1.3); Blood Urea Nitrogen 11 mg/dl (9-20); Calcium 10.1 mg/dl (8.4-10.2); Carbon Dioxide 23 mmol/L (22.0-30.0); Chloride 106 mmol/L (98-107); Chol/HDL Ratio 2.2 (1-3.5); Cholesterol 163 mg/dl (140-200); Estimated Glomerular Filt Rate 84 ml/min (>60); GFR (African American) 102 ML/MIN (>60); Globulin 3.1 g/dL (1.3-3.2); Glucose 58 mg/dl (74-100); HDL Cholesterol 74 mg/dl (40-60); Potassium 5.4 mmoL/L (3.5-5.1); Sodium 141 mmol/L (136-145); Total Protein,Serum 8.2 g/dl (6.3-8.2); Triglycerides 81 mg/dl (30-150); VLDL Cholesterol 16 mg/dL (0-40)
[2023-03-08 20:00] LABS: Direct LDL Cholesterol 75.62 mg/dL (100-129)
[2023-03-08 20:05] LABS: T4 (Thyroxine) 7.5 ug/dl (5.53-11.0)
[2023-03-08 20:19] LABS: Thyroid Stimulating Hormone 1.14 uIU/mL (0.465-4.68)
== END ==
PROVIDERS: PCP Emergency Medicine; Visit Provider Emergency Medicine
DX: M51.36 Other intervertebral disc degeneration, lumbar region (principal); E55.9 Vitamin D deficiency, unspecified; E66.9 Obesity, unspecified; I10 Essential (primary) hypertension; Z68.30 Body mass index [BMI] 30.0-30.9, adult; Z79.899 Other long term (current) drug therapy
CPT/HCPCS: 80053; 80061; 80305; 82306; 84436; 84443; 85025

== ENCOUNTER → 2023-05-17 01:00 | Outpatient (CLI) | payer MEDICARE, SELFPAY ==
[2023-05-17 23:35] LABS: Barbiturates Screen,Urine Negative ng/ml (<200)
[2023-05-17 23:36] LABS: Benzodiazepines Screen,Urine Negative ng/ml (<200)
[2023-05-17 23:37] LABS: Cannabinoid Screen,Urine Positive ng/ml (<50); Cocaine Screen,Urine Negative ng/ml (<300)
[2023-05-17 23:38] LABS: Methadone Screen,Urine Negative ng/ml (<300)
[2023-05-17 23:39] LABS: Opiate Screen,Urine Positive ng/ml (<300); Phencyclidine Screen,Urine Negative ng/ml (<25)
[2023-05-18 00:08] LABS: Amphetamine/Metha Screen,Urine Negative ng/ml (<1000)
== END ==
PROVIDERS: PCP Emergency Medicine; Visit Provider Emergency Medicine
DX: M51.36 Other intervertebral disc degeneration, lumbar region (principal); Z79.899 Other long term (current) drug therapy
CPT/HCPCS: 80305

== ENCOUNTER → 2023-05-26 08:55 | Outpatient (POV) | payer MEDICARE, SELFPAY ==
[2023-05-26 09:29] VITALS: BP 164/86; PULSE 101; RESP 18; O2SAT 94; BMI 30.4
--- NOTE | 2023-05-26 10:05 | EXP.PAIN.OV ---
HPI Data of Consult Patient: new to practice Consult date: 05/26/23 Requesting Physician: Main Calles CRNA Primary Care Provider: Yury Brady MD Consult Narrative History of present illness: Mr. Hernandes is a 68 year old male who comes our office today for initial consultation regarding nonfunctioning [employer] spinal cord stimulator. Patient had spinal cord stimulator placed in 2020. Patient reports stimulator is doing very well in terms of covering his lumbar back pain as well as bilateral hip and leg radicular symptoms. Patient is seeking battery replacement. This is certainly symptom we can do for him. Patient currently taking gabapentin 300 mg 1 p.o. 3 times daily. Oxycodone 15 mg 1 p.o. 3 times daily. His Tino #[id number] has been reviewed and appropriate. Patient's lumbar CT scan from 2020 shows multilevel degenerative disc lumbar spine. Anterior listhesis of L5-S1. Patient complains today of increased low back pain as well as bilateral hip and leg radicular symptoms. He rates his pain 6/10. CC: Main Calles CRNA [facility] Disclaimer: The information contained in this section may have been updated after the patient was seen, as this information can be updated by other users. Medical History (Updated 05/26/23 @ 10:09 by Main Calles CRNA) CAD (coronary artery disease) Depression GERD (gastroesophageal reflux disease) HTN (hypertension) Hyperlipidemia Kidney stones Prostate disorder Surgical History (Updated 05/26/23 @ 09:32 by Breana Stanley RN) History of arthroscopic surgery of shoulder Hx of colonoscopy Family History (Updated 05/26/23 @ 09:32 by Breana Stanley RN) Other Arthritis Diabetes Social History (Updated 05/26/23 @ 09:33 by Breana Stanley RN) Smoking Status: Current every day smoker tobacco type: cigarettes packs per day: 1 alcohol intake: current substance use type: denies use current occupational status: retired Travel in the last 8 weeks: None current occupation: retired Meds Home Medications and Allergies Home Medications Medication Instructions Recorded Confirmed Type clopidogrel 75 mg tablet (Plavix) 75 mg PO DAILY Blood Thinner 09/29/21 05/26/23 History atorvastatin 40 mg tablet 40 mg PO HS cholesterol #90 tabs 09/21/22 05/26/23 Rx oxycodone 15 mg tablet 15 mg PO TID PRN pain #90 tabs 05/17/23 05/26/23 Rx amlodipine 10 mg tablet See Rx Instructions .Route 05/26/23 05/26/23 History .COMPLEX BLOOD PRESSURE buspirone 10 mg tablet See Rx Instructions .Route 05/26/23 05/26/23 History .COMPLEX MOOD celecoxib 200 mg capsule See Rx Instructions .Route 05/26/23 05/26/23 History .COMPLEX Pain cyclobenzaprine 10 mg tablet See Rx Instructions .Route 05/26/23 05/26/23 History .COMPLEX Pain escitalopram oxalate 20 mg tablet See Rx Instructions .Route 05/26/23 05/26/23 History .COMPLEX MOOD fluticasone propionate 50 See Rx Instructions .Route 05/26/23 05/26/23 History mcg/actuation nasal .COMPLEX ALLERGIES spray,suspension gabapentin 300 mg capsule 300 mg PO TID Pain 05/26/23 05/26/23 History moexipril 15 mg tablet See Rx Instructions .Route 05/26/23 05/26/23 History .COMPLEX BLOOD PRESSURE omeprazole 20 mg capsule,delayed See Rx Instructions .Route 05/26/23 05/26/23 History release .COMPLEX GERD tamsulosin 0.4 mg capsule See Rx Instructions .Route 05/26/23 05/26/23 History .COMPLEX URINATION New Prescriptions to Start Prescriptions: Allergies Allergy/AdvReac Type Severity Reaction Status Date / Time No Known Drug Allergies Allergy Unknown Verified 05/17/23 09:18 [NKDA] Objective Vital signs: Pulse Resp BP Pulse Ox O2 Del Method 101 H 18 164/86 H 94 L Room Air 05/26/23 09:05/26/23 09:29 05/26/23 09:29 05/26/23 09:05/26/23 09:29 Opioid Risk Tool Opioid Risk Tool-Male Family hx alcohol abuse: No Family hx illegal drugs: No Family hx rx drug abuse: No Persona
== END ==
PROVIDERS: PCP Emergency Medicine; Visit Provider Nurse Anesthetist, Certified Registered
DX: M54.16 Radiculopathy, lumbar region (principal)
CPT/HCPCS: 99202; G0463

== ENCOUNTER → 2023-06-05 10:52 | Outpatient (CLI) | payer MEDICARE, SELFPAY ==
--- NOTE | 2023-06-05 11:03 | XR_ITS ---
FINAL REPORT TECHNIQUE: 3 views CLINICAL HISTORY: BACK PAIN FINDINGS: There is no fracture present. There is no malalignment. There are moderate to severe degenerative changes. Dextroscoliosis is noted. There is a spinal stimulator in place. IMPRESSION: No acute process. Reviewed, Interpreted and Dictated by Luisito Javed III, MD Transcribed by Malena Albarran Authenticated and [facility]
--- NOTE | 2023-06-05 11:04 | XR_ITS ---
FINAL REPORT CLINICAL HISTORY: BACK PAIN FINDINGS: 5 views of the lumbar spine were obtained. There is no evidence of fracture. There are moderate and severe degenerative changes. Mild leftward curvature is noted. 5 mm of anterolisthesis is seen of L5 on S1. There is vacuum disc phenomenon at L3-4, L4-5 and L5-S1. There are diffuse vascular calcifications. IMPRESSION: Moderate and severe degenerative changes without acute bony abnormality. Reviewed, Interpreted and Dictated by Luisito Javed III, MD Transcribed by Malena Albarran Authenticated and [facility]
== END ==
PROVIDERS: PCP Emergency Medicine; Visit Provider Nurse Anesthetist, Certified Registered
DX: M54.6 Pain in thoracic spine (principal); M54.50 Low back pain, unspecified
CPT/HCPCS: 72072; 72110

== ENCOUNTER → 2023-07-17 16:12 | Outpatient (CLI) | payer MEDICARE, SELFPAY ==
[2023-07-17 17:20] LABS: Amphetamine/Metha Screen,Urine Negative ng/ml (<1000)
[2023-07-17 17:21] LABS: Barbiturates Screen,Urine Negative ng/ml (<200)
[2023-07-17 17:22] LABS: Benzodiazepines Screen,Urine Negative ng/ml (<200); Cannabinoid Screen,Urine Positive ng/ml (<50)
[2023-07-17 17:23] LABS: Cocaine Screen,Urine Negative ng/ml (<300)
[2023-07-17 17:24] LABS: Methadone Screen,Urine Negative ng/ml (<300); Opiate Screen,Urine Positive ng/ml (<300)
[2023-07-17 17:25] LABS: Phencyclidine Screen,Urine Negative ng/ml (<25)
== END ==
PROVIDERS: PCP Emergency Medicine; Visit Provider Emergency Medicine
DX: M54.16 Radiculopathy, lumbar region (principal)
CPT/HCPCS: 80305

== ENCOUNTER → 2023-07-31 10:29 | Outpatient (CLI) | payer MEDICARE, SELFPAY ==
[2023-07-31 11:12] LABS: Basophils % 0.4 % (0.1-2.0); Eosinophils # 0.1 K/mm3 (0.0-0.4); Eosinophils % 1.1 % (0.1-12.0); Hematocrit 50.4 % (42.0-52.0); Hemoglobin 16.5 g/dL (14.1-18.0); Lymphocytes # 2.6 K/mm3 (0.7-4.5); Lymphocytes % 26.3 % (10-50); Mean Corpuscular HGB Conc 32.8 g/dL (31.8-35.4); Mean Corpuscular Hemoglobin 32.5 pg (27.0-31.2); Mean Corpuscular Volume 99.1 fl (80-94); Mean Platelet Volume 8.7 fl (7.4-10.4); Monocytes # 0.5 K/mm3 (0.1-1.0); Monocytes % 5.3 % (1.7-9.3); Neutrophils # 6.7 K/mm3 (1.8-7.8); Neutrophils % 66.9 % (37.0-80.0); Platelet Count 250 K/mm3 (142-424); Red Blood Count 5.09 M/mm3 (4.60-6.20); Red Cell Distribution Width 13.4 % (11.5-17.5)
[2023-07-31 12:00] LABS: Anion Gap 11.4 mEq/L (5-15); Blood Urea Nitrogen 12 mg/dl (9-20); Calcium 9.3 mg/dl (8.4-10.2); Carbon Dioxide 28 mmol/L (22.0-30.0); Chloride 103 mmol/L (98-107); Estimated Glomerular Filt Rate 75 ml/min (>60); GFR (African American) 90 ML/MIN (>60); Glucose 95 mg/dl (74-100); Potassium 4.4 mmoL/L (3.5-5.1); Sodium 138 mmol/L (136-145)
== END ==
PROVIDERS: PCP Internal Medicine; Visit Provider Anesthesiology
DX: Z01.818 Encounter for other preprocedural examination (principal)
CPT/HCPCS: 36415; 80048; 85025

== ENCOUNTER 2023-08-04 08:45 | Day surgery (SDC) | payer MEDICARE, SELFPAY ==
[2023-08-02 11:34] VITALS: BMI 30.4
[2023-08-04 10:16] VITALS: BP 140/98; PULSE 88; RESP 18; TEMP 36.4; O2SAT 99
--- NOTE | 2023-08-04 11:21 | EXP.ANES.CKL ---
[facility] Disclaimer: The information contained in this section may have been updated after the patient was seen, as this information can be updated by other users. Medical History CAD (coronary artery disease) Depression GERD (gastroesophageal reflux disease) HTN (hypertension) Hyperlipidemia Kidney stones Obesity Prostate disorder Surgical History History of arthroscopic surgery of shoulder History of surgery on lower extremity Hx of colonoscopy Family History Other Arthritis Diabetes Social History Smoking Status: Current every day smoker tobacco type: cigarettes packs per day: 1 alcohol intake: current substance use type: denies use current occupational status: retired Travel in the last 8 weeks: None current occupation: retired [employer] Anesthesia Checklist Patient Identification Patient Identification: Arm Band Structural Data Admitted From: Home Planned Operative Procedure/s: Replacement of Neurostimulator Generator Consent for Planned Operative Procedure(s) Verified: Yes Verified Documents: Surgical Consent and History and Physical NPO Status Verified Time NPO: 00:00 Additional verifications Anesthesia Reactions: No Hx Blood Transfusions: No Blood Transfusion Reaction: No Airway Assessment Mallampati Score:: Class II C-Spine Mobility Assessed: Yes TMJ Mobility Assessed: Yes Dentition: Edentulous Neurological Assessment Level of Consciousness: Awake and Alert Anesthesia Plan Anesthesia Risk discussed: Yes Anesthesia Plan: Verified ASA Class: III Anesthesia Type: MAC
[2023-08-04 12:54] VITALS: BP 115/82; PULSE 86; RESP 18; TEMP 36.3; O2SAT 94
[2023-08-04 13:05] VITALS: BP 123/77; PULSE 77; RESP 18; O2SAT 92
[2023-08-04 13:20] VITALS: BP 147/88; PULSE 77; RESP 18; O2SAT 92
[2023-08-04 13:35] VITALS: BP 143/90; PULSE 74; RESP 18; O2SAT 96
--- NOTE | 2023-08-04 14:01 | EXP.OP.NOTE ---
Date of procedure: 08/04/23 Pre-op Diagnosis:: End-of-life [employer] spinal cord stimulator generator Post-op Diagnosis:: Same Procedure performed:: Replacement spinal cord stimulator generator Surgeon:: Corbin Marcelo MD CRITICAL SYSTEMS TECHNICIAN:: Other Anesthesia: MAC Estimated blood loss (mL): 5 Clinical Note:: The patient is a pleasant 68-year-old white male who we are treating for low back pain with lumbar radicular symptoms. He does have a [employer] spinal cord stimulator system that was placed by Dr. Ponce. He does have a paddle lead in place of the T8 vertebral body. His spinal cord stimulator generator is at end-of-life. Will replace his generator today. Operative findings:: None Operative note:: Informed consent was obtained risk and benefits of the procedure were explained to the patient. Patient was taken the operating room placed prone on the procedure table. He was prepped and draped in sterile fashion. C-arm fluoroscopy was used to view the paddle lead. It was in good position at the T8 vertebral body. We also reviewed the stimulator generator. There is on the left flank. The skin and subcutaneous tissues were anesthetized using lidocaine. I made incision dissected out the stimulator generator. I disconnected the leads. I reconnected it to a new generator. Impedances were checked and found to be okay. The incision was irrigated antibiotic solution. The incision was then closed with 2-0 Vicryl followed by 4-0 nylon and alfreda. Patient was taken recovery in stable condition. The patient tolerated the procedure well with no complications. Patient was programmed by the [employer] representative with good stimulation in all areas of pain. Patient was discharged home neurologic intact with good relief of pain symptoms. Plan and disposition: Follow-up with this patient in 1 week for wound check and reprogramming. Will follow-up in 2 weeks for suture removal. Condition: stable Disposition: PACU Complications:: None
--- NOTE | 2023-08-04 14:38 | P.PNANES_ITS ---
[facility] Anesthesia Record Part I Anesthesia Record I Intake, IV Amount: 400 Hydration: Adequate Estimated blood loss (mL): 25 Urine output (mL): 0 Blood Products used (#): none Blood Pressure: 115/82 SaO2: 94 Pulse Rate: 85 Airway Patency: Patent Respiratory Rate: 16 Temperature: 97.4 F Patient is:: Awake and Stable Stable to PACU at:: 12:59
[2023-08-04 14:39] VITALS: BP 115/82; PULSE 85; RESP 16; TEMP 36.3; O2SAT 94
== END 2023-08-04 13:35 | disposition home or self-care (01) ==
PROVIDERS: PCP Internal Medicine; Visit Provider Anesthesiology
PROC: (CPT 63685; principal; 2023-08-04 10:30)
DX: Z45.49 Encounter for adjustment and management of other implanted nervous system device (principal); M54.16 Radiculopathy, lumbar region
CPT/HCPCS: 63685; 96374; C1820

== ENCOUNTER → 2023-08-10 13:20 | Outpatient (POV) | payer MEDICARE, SELFPAY ==
[2023-08-10 14:15] VITALS: BP 151/83; PULSE 98; RESP 18; O2SAT 96; BMI 30.4
--- NOTE | 2023-08-10 14:23 | EXP.PAIN.SOA ---
[facility] Pain Management SOAP Note Subjective:: Patient is a pleasant 68-year-old male who presents today for 1 week postop on a cord stimulator generator replacement. We are currently treating the patient for degenerative disc disease of lumbar spine with lumbar radiculopathy symptoms, end-of-life spinal cord stimulator generator. Today he rates his pain a 4 out of 10. Patient denies any issues following his surgical procedure. He does state that the programming is doing well. Patient states that he did just recently changed to the nonparesthesia program and did end up really liking this. Patient does state that he is scheduled to meet with [employer] sales development representative next week for additional programming. Patient is currently managed with gabapentin 300 mg 3 times a day and oxycodone 15 mg 3 times a day from his primary care provider. He denies any side effects from this medication. His Tino has been reviewed and is appropriate. Review of Systems: General: No recent weight changes, no fever, no sleep disturbances Respiratory: No cough, no shortness of air, no recurring pulmonary infections Cardiovascular/peripheral vascular: No chest pain, no palpitations, no edema, no shortness of breath Gastrointestinal: No new onset incontinence, normal bowel movements reported Genitourinary: No new onset incontinence Musculoskeletal: Low back pain Psychiatric: [Normal mood/affect] Neurological: [Denies weakness in extremities], [denies balance issues] Objective:: Physical Exam: General: Alert and oriented x3, no acute distress, pleasant and cooperative Lungs: Respirations even and unlabored, symmetrical chest expansion Eyes: PERRL Musculoskeletal: Flexion and extension of lumbar [spine] somewhat guarded secondary to pain, [antalgic gait noted] Neurological: Speech clear, no gross sensory deficit Skin: Incision clean, dry, well-approximated with no erythema alfreda in place Assessment:: Degenerative disc disease of lumbar spine with lumbar radiculopathy symptoms, end-of-life [employer] generator Plan:: Patient continues to do well following his spinal cord stimulator generator replacement. Patient's incision is clean, dry, well-approximated with minimal erythema noted and alfreda in place. I have discussed with the patient to continue his postop restrictions. Patient will return to clinic in 1 week for staple removal and reevaluation of symptoms. Patient has been instructed to contact the clinic with any concerns before the next appointment. Dr. Marcelo has reviewed this note and agrees with this plan of care. This note was dictated using voice recognition software and make contain errors or omissions. [facility] Disclaimer: The information contained in this section may have been updated after the patient was seen, as this information can be updated by other users. Medical History CAD (coronary artery disease) Depression GERD (gastroesophageal reflux disease) HTN (hypertension) Hyperlipidemia Kidney stones Obesity Prostate disorder Surgical History History of arthroscopic surgery of shoulder History of surgery on lower extremity Hx of colonoscopy Family History Other Arthritis Diabetes Social History Smoking Status: Current every day smoker tobacco type: cigarettes packs per day: 1 alcohol intake: current substance use type: denies use current occupational status: retired Travel in the last 8 weeks: None current occupation: retired
== END ==
PROVIDERS: PCP Emergency Medicine; Visit Provider Nurse Practitioner Family
DX: M51.16 Intervertebral disc disorders with radiculopathy, lumbar region (principal); Z96.82 Presence of neurostimulator
CPT/HCPCS: 99212; G0463

== ENCOUNTER → 2023-08-17 12:37 | Outpatient (POV) | payer MEDICARE, SELFPAY ==
[2023-08-17 13:11] VITALS: BP 153/91; PULSE 104; RESP 18; O2SAT 93; BMI 30.4
--- NOTE | 2023-08-17 13:12 | EXP.PAIN.SOA ---
[facility] Pain Management SOAP Note Subjective:: Patient is a pleasant 68-year-old male who presents today for 2-week follow-up of spinal cord stimulator generator change. We are currently treating the patient for degenerative disc disease of lumbar spine with lumbar radiculopathy symptoms, end-of-life spinal cord stimulator generator. Today he rates his pain a 3 out of 10. He denies any new trauma or injury from our last visit last week. He does state he continues to do well with the spinal cord stimulator however he does feel like it could use additional programming. He was scheduled to meet with [employer] outbound sales representative today for additional programming from last week. H he is currently managed with gabapentin 300 mg 3 times a day and oxycodone 15 mg 3 times a day from his primary care provider. He denies any side effects from this medication. His Tino has been reviewed and is appropriate. Review of Systems: General: No recent weight changes, no fever, no sleep disturbances Respiratory: No cough, no shortness of air, no recurring pulmonary infections Cardiovascular/peripheral vascular: No chest pain, no palpitations, no edema, no shortness of breath Gastrointestinal: No new onset incontinence, normal bowel movements reported Genitourinary: No new onset incontinence Musculoskeletal: Low back pain Psychiatric: [Normal mood/affect] Neurological: [Denies weakness in extremities], [denies balance issues] Objective:: Physical Exam: General: Alert and oriented x3, no acute distress, pleasant and cooperative Lungs: Respirations even and unlabored, symmetrical chest expansion Eyes: PERRL Musculoskeletal: Flexion and extension of lumbar [spine] somewhat guarded secondary to pain, [antalgic gait noted] Neurological: Speech clear, no gross sensory deficit Skin: Incision site is clean, well-approximated with moderate erythema and some serosanguineous drainage noted at approximately 4 of the staple sites Assessment:: Degenerative disc disease of lumbar spine with lumbar radiculopathy symptoms, end-of-life spinal cord stimulator generator Plan:: Patient's incision is clean, well-approximated with moderate erythema noted. Patient did have a dressing in place that had some serosanguineous drainage noted in about 4 staple sites. I have discussed with the patient due to the current incision sites I will send in a 10-day supply of Bactrim DS to take twice a day. We will leave the sutures and alfreda in place for another week. [employer] out[employer] sales representative was present today to have the patient reprogrammed and did get better coverage. Patient was counseled to continue his postop restrictions. Patient will return to clinic in 1 week for follow-up and possible staple removal. Patient has been instructed to contact the clinic with any concerns before the next appointment. Dr. Marcelo has reviewed this note and agrees with this plan of care. This note was dictated using voice recognition software and make contain errors or omissions. [facility] Disclaimer: The information contained in this section may have been updated after the patient was seen, as this information can be updated by other users. Medical History CAD (coronary artery disease) Depression GERD (gastroesophageal reflux disease) HTN (hypertension) Hyperlipidemia Kidney stones Obesity Prostate disorder Surgical History History of arthroscopic surgery of shoulder History of surgery on lower extremity Hx of colonoscopy Family History Other Arthritis Diabetes Social History Smoking Status: Current every day smoker tobacco type: cigarettes packs per day: 1 alcohol intake: current substance use type: denies use current occupational status: retired Travel in the last 8 weeks: None c
== END | disposition home or self-care (01) ==
PROVIDERS: PCP Emergency Medicine; Visit Provider Nurse Practitioner Family
DX: M51.16 Intervertebral disc disorders with radiculopathy, lumbar region (principal); Z96.82 Presence of neurostimulator
CPT/HCPCS: 99212; G0463

== ENCOUNTER → 2023-08-25 08:49 | Outpatient (POV) | payer MEDICARE, SELFPAY ==
[2023-08-25 09:10] VITALS: BP 150/83; PULSE 113; RESP 20; TEMP 36.6; O2SAT 96; BMI 30.4
--- NOTE | 2023-08-25 09:23 | A.OFFVIS_ITS ---
[facility] Pain Management SOAP Note Subjective:: Patient is a very pleasant 68-year-old male that comes our clinic today for a follow-up visit and suture removal regarding his right lateral lumbar incision from spinal cord stimulator battery change. He is doing very well. Sutures removed. Incision clean and dry. No sign of infection. He is continuing with gabapentin 300 mg 1 p.o. 3 times daily as well as oxycodone 15 mg 1 p.o. 3 times daily from his primary care doctor. Tino and UDS have been appropriate. Objective:: Patient is awake alert [place] x 3. In no acute distress. Flexion-extension lumbar spine somewhat guarded secondary to pain. Deep tendon reflexes upper and lower extremities normal. Motor strength upper and lower extremities normal. There is no gross sensory deficit. Gait is normal. Assessment:: Degenerative disc lumbar spine multilevels. Lumbar radiculopathy. Plan:: Patient will return to clinic in 1 month for incision inspection. Otherwise, he is doing very well. [facility] Disclaimer: The information contained in this section may have been updated after the patient was seen, as this information can be updated by other users. Medical History CAD (coronary artery disease) Depression GERD (gastroesophageal reflux disease) HTN (hypertension) Hyperlipidemia Kidney stones Obesity Prostate disorder Surgical History History of arthroscopic surgery of shoulder History of surgery on lower extremity Hx of colonoscopy Family History Other Arthritis Diabetes Social History Smoking Status: Current every day smoker tobacco type: cigarettes packs per day: 1 alcohol intake: current substance use type: denies use current occupational status: other Travel in the last 8 weeks: None current occupation: retired
== END ==
LOC: SC.PAIN 08:50
PROVIDERS: PCP Internal Medicine; Visit Provider Nurse Anesthetist, Certified Registered
DX: M51.16 Intervertebral disc disorders with radiculopathy, lumbar region (principal); Z48.02 Encounter for removal of sutures; Z96.82 Presence of neurostimulator
CPT/HCPCS: 99212; 99213; G0463

== ENCOUNTER 2023-09-15 13:38 | Outpatient (CLI) | payer MEDICARE, SELFPAY ==
[2023-09-15 16:30] LABS: Amphetamine/Metha Screen,Urine Negative ng/ml (<1000); Barbiturates Screen,Urine Negative ng/ml (<200)
[2023-09-15 16:31] LABS: Benzodiazepines Screen,Urine Negative ng/ml (<200)
[2023-09-15 16:32] LABS: Cannabinoid Screen,Urine Positive ng/ml (<50); Cocaine Screen,Urine Negative ng/ml (<300)
[2023-09-15 16:33] LABS: Methadone Screen,Urine Negative ng/ml (<300); Opiate Screen,Urine Negative ng/ml (<300)
[2023-09-15 16:34] LABS: Phencyclidine Screen,Urine Negative ng/ml (<25)
== END 2023-09-15 23:59 ==
LOC: LAB.DROPOF 13:39
PROVIDERS: PCP Internal Medicine; Visit Provider Internal Medicine
DX: Z79.899 Other long term (current) drug therapy (principal)
CPT/HCPCS: 80307

== ENCOUNTER → 2023-09-22 10:04 | Outpatient (POV) | payer MEDICARE, SELFPAY ==
--- NOTE | 2023-09-22 10:41 | A.OFFVIS_ITS ---
[facility] Pain Management SOAP Note Subjective:: Patient is a pleasant 68-year-old male who presents today for follow-up. We are currently treating the patient for degenerative disc disease of lumbar spine with lumbar radiculopathy symptoms. Today he rates his pain a 3 out of 10. Patient did have his spinal cord stimulator replaced recently and at his last visit had some areas that were questionable for infection and was given an antibiotic. Patient does state he has been doing well since and declines any other worsening symptoms or fever. Patient states that the programming on his spinal cord stimulator is doing wonderful and that he is continue to stay on the nylon tingle program on his device. He states that this does improve his overall function and that he feels like he is able to do more. Patient is currently managed with gabapentin 300 mg 3 times a day and oxycodone 15 mg 3 times a day from his PCP. His Tino has been reviewed and is appropriate. Review of Systems: General: No recent weight changes, no fever, no sleep disturbances Respiratory: No cough, no shortness of air, no recurring pulmonary infections Cardiovascular/peripheral vascular: No chest pain, no palpitations, no edema, no shortness of breath Gastrointestinal: No new onset incontinence, normal bowel movements reported Genitourinary: No new onset incontinence Musculoskeletal: Low back pain Psychiatric: [Normal mood/affect] Neurological: [Denies weakness in extremities], [denies balance issues] Objective:: Physical Exam: General: Alert and oriented x3, no acute distress, pleasant and cooperative Lungs: Respirations even and unlabored, symmetrical chest expansion Eyes: PERRL Musculoskeletal: Flexion and extension of lumbar [spine] somewhat guarded secondary to pain, [antalgic gait noted] Neurological: Speech clear, no gross sensory deficit Skin: Incision site is clean, dry with scabbing noted at 1 area of the incision no erythema noted Assessment:: Degenerative disc disease of lumbar spine with lumbar radiculopathy symptoms Plan:: Patient continues to do well following his spinal cord stimulator replacement and does not need any programming at today's visit. I have counseled the patient to continue his postop restrictions until his incision is fully healed. Patient will return to clinic in 3 months for reevaluation of symptoms and plan of care. Patient has been instructed to contact the clinic with any concerns before the next appointment. Dr. Marcelo has reviewed this note and agrees with this plan of care. This note was dictated using voice recognition software and make contain errors or omissions. [facility] Disclaimer: The information contained in this section may have been updated after the patient was seen, as this information can be updated by other users. Medical History CAD (coronary artery disease) Depression GERD (gastroesophageal reflux disease) HTN (hypertension) Hyperlipidemia Kidney stones Obesity Prostate disorder Surgical History History of arthroscopic surgery of shoulder RIGHT History of surgery on lower extremity Hx of colonoscopy Family History Other Arthritis Diabetes Social History Smoking Status: Current every day smoker tobacco type: cigarettes packs per day: 1 alcohol intake: current substance use type: denies use current occupational status: other Travel in the last 8 weeks: None current occupation: retired
[2023-09-22 12:54] VITALS: BP 124/88; PULSE 113; RESP 18; O2SAT 93; BMI 30.8
== END ==
LOC: SC.PAIN 10:04
PROVIDERS: PCP Internal Medicine; Visit Provider Nurse Practitioner Family
DX: M51.16 Intervertebral disc disorders with radiculopathy, lumbar region (principal); Z96.82 Presence of neurostimulator
CPT/HCPCS: 99212; G0463

== ENCOUNTER 2023-10-10 11:56 | Outpatient (CLI) | payer MEDICARE, SELFPAY ==
[2023-10-10 12:51] LABS: Creatinine,Urine Random 177 mg/dL (Not Estab.)
[2023-10-10 12:53] LABS: Microalbumin/Creatinine Ratio 23.5
[2023-10-10 13:17] LABS: Prostate Specific Ag Screen 0.2 ng/ml (0.0-4.0)
== END 2023-10-10 23:59 ==
LOC: LAB.DROPOF 11:57
PROVIDERS: PCP Internal Medicine; Visit Provider Internal Medicine
DX: Z12.5 Encounter for screening for malignant neoplasm of prostate (principal); E66.3 Overweight; Z83.3 Family history of diabetes mellitus; M51.36 Other intervertebral disc degeneration, lumbar region; Z79.899 Other long term (current) drug therapy
CPT/HCPCS: 82043; 82570; G0103

== ENCOUNTER 2023-12-21 08:34 | Outpatient (POV) | payer MEDICARE, SELFPAY ==
[2023-12-21 08:42] VITALS: BP 157/74; PULSE 101; RESP 18; O2SAT 98; BMI 30.7
--- NOTE | 2023-12-21 08:51 | A.OFFVIS_ITS ---
[facility] Pain Management SOAP Note Subjective:: Patient is a pleasant 68-year-old male who presents today for 3-month follow-up. Today he rates his pain a 3 out of 10. Patient denies any new trauma or injury. He does state that he still is a little tender around where his spinal cord stimulator generator was replaced. He states he has been still doing quite a bit of activity and really feels like the current programming is working well. This is a [employer] spinal cord stimulator device and it is on the non tingle programming. Patient is currently managed with gabapentin and oxycodone from his primary care provider. His Tino has been reviewed and is appropriate. Review of Systems: General: No recent weight changes, no fever, no sleep disturbances Respiratory: No cough, no shortness of air, no recurring pulmonary infections Cardiovascular/peripheral vascular: No chest pain, no palpitations, no edema, no shortness of breath Gastrointestinal: No new onset incontinence, normal bowel movements reported Genitourinary: No new onset incontinence Musculoskeletal: Left side tenderness around SCS generator Psychiatric: [Normal mood/affect] Neurological: [Denies weakness in extremities], [denies balance issues] Objective:: Physical Exam: General: Alert and oriented x3, no acute distress, pleasant and cooperative Lungs: Respirations even and unlabored, symmetrical chest expansion Eyes: PERRL Musculoskeletal: Flexion and extension of lumbar [spine] somewhat guarded secondary to pain, [antalgic gait noted] point tenderness left lateral lumbar paraspinous region surrounding the stimulator battery Neurological: Speech clear, no gross sensory deficit Assessment:: Degenerative disc disease of lumbar spine with lumbar radiculopathy symptoms Plan:: I have discussed with the patient due to his continued tenderness around his stimulator generator that it may be beneficial to try trigger point injections around the device. Risk and benefits were discussed with the patient and at this time we will wait however I have counseled the patient that he can call and schedule this injection over the phone at a later date if needed. I will order the patient a compounded cream for him to apply at this site and see if this does provide more improvement. Patient will return to clinic in 6 months for reevaluation of symptoms and plan of care. I have counseled the patient as well that if he decides he would like to have this stimulator reprogrammed at his next visit to let our office know before the appointment time and I will make sure that some 1 from [employer] is available. Patient agrees with this plan of care. Patient has been instructed to contact the clinic with any concerns before the next appointment. Dr. Marcelo has reviewed this note and agrees with this plan of care. This note was dictated using voice recognition software and make contain errors or omissions. [facility] Disclaimer: The information contained in this section may have been updated after the patient was seen, as this information can be updated by other users. Medical History Kidney stones CAD (coronary artery disease) Depression HTN (hypertension) GERD (gastroesophageal reflux disease) Prostate disorder Obesity Hyperlipidemia His lipid panel was excellent done back in June. I would wait a few months before repeating this. Surgical History History of surgery on lower extremity Hx of colonoscopy History of arthroscopic surgery of shoulder RIGHT Family History Other Arthritis Diabetes Social History Smoking Status: Current every day smoker tobacco type: cigarettes packs per day: 1 alcohol intake: current alcohol intake frequency: a few times a week substance use type: denies use current occupational status: other Travel in the last 8 weeks: None current occupation: retired
== END 2023-12-21 23:59 | disposition home or self-care (01) ==
LOC: SC.PAIN 08:34
PROVIDERS: PCP Internal Medicine; Visit Provider Nurse Practitioner Family
DX: M51.16 Intervertebral disc disorders with radiculopathy, lumbar region (principal)
CPT/HCPCS: 99212; G0463

== ENCOUNTER 2024-01-29 11:56 | Outpatient (CLI) | payer MEDICARE, SELFPAY ==
[2024-01-29 19:05] LABS: Basophils % 0.5 % (0.1-2.0); Eosinophils # 0.1 K/mm3 (0.0-0.4); Eosinophils % 1.2 % (0.1-12.0); Hematocrit 47.7 % (42.0-52.0); Hemoglobin 15.6 g/dL (14.1-18.0); Lymphocytes # 1.9 K/mm3 (0.7-4.5); Lymphocytes % 23.4 % (10-50); Mean Corpuscular HGB Conc 32.6 g/dL (31.8-35.4); Mean Corpuscular Hemoglobin 32.5 pg (27.0-31.2); Mean Corpuscular Volume 99.6 fl (80-94); Mean Platelet Volume 9.5 fl (7.4-10.4); Monocytes # 0.5 K/mm3 (0.1-1.0); Monocytes % 6.5 % (1.7-9.3); Neutrophils # 5.7 K/mm3 (1.8-7.8); Neutrophils % 68.3 % (37.0-80.0); Platelet Count 263 K/mm3 (142-424); Red Blood Count 4.79 M/mm3 (4.60-6.20); White Blood Count 8.3 K/mm3 (4.8-10.8)
[2024-01-29 19:27] LABS: Alanine Aminotransferase 30 U/L (12-78); Albumin Level 4.5 g/dl (3.5-5.0); Albumin/Globulin Ratio 1.5 (1.1-1.8); Alkaline Phosphatase 98 U/L (38-126); Anion Gap 12.9 mEq/L (5-15); Aspartate Amino Transferase 29 U/L (17-59); Bilirubin,Total 0.5 mg/dl (0.2-1.3); Blood Urea Nitrogen 17 mg/dl (9-20); Carbon Dioxide 28 mmol/L (22.0-30.0); Chloride 103 mmol/L (98-107); Chol/HDL Ratio 3.4 (1-3.5); Cholesterol 168 mg/dl (140-200); Estimated Glomerular Filt Rate 75 ml/min (>60); GFR (African American) 90 ML/MIN (>60); Globulin 3.1 g/dL (1.3-3.2); Glucose 114 mg/dl (74-100); HDL Cholesterol 49 mg/dl (40-60); Potassium 4.9 mmoL/L (3.5-5.1); Sodium 139 mmol/L (136-145); Total Protein,Serum 7.6 g/dl (6.3-8.2); Triglycerides 142 mg/dl (30-150); VLDL Cholesterol 28 mg/dL (0-40)
[2024-01-29 19:38] LABS: Direct LDL Cholesterol 86.15 mg/dL (100-129)
[2024-01-29 19:59] LABS: Hemoglobin A1C 5.8 % (4.0-6.0)
[2024-01-29 20:19] LABS: Vitamin B12 514 pg/mL (239-931)
== END 2024-01-29 23:59 | disposition home or self-care (01) ==
LOC: LAB.DROPOF 01-31 11:57
PROVIDERS: PCP Internal Medicine; Visit Provider Internal Medicine
DX: R53.83 Other fatigue (principal); R73.09 Other abnormal glucose; E78.5 Hyperlipidemia, unspecified; E53.8 Deficiency of other specified B group vitamins; Z68.31 Body mass index [BMI] 31.0-31.9, adult
CPT/HCPCS: 80053; 80061; 82607; 83036; 85025

== ENCOUNTER 2024-02-05 06:42 | Outpatient (CLI) | payer SELFPAY ==
--- NOTE | 2024-02-05 06:52 | CT_ITS ---
APPROVED REPORT Manager Intelligence: CLINICAL INDICATION Risk stratification TECHNIQUE Image Acquisition: A 128 slice MDCT scanner ([place] View) was used for data acquisition. A noncontrast coronary calcium scan was performed. A CT attenuation threshold of 130 Hounsfield units (HU) was used for the detection of calcium in contiguous voxels of 1 sq mm in area to be counted as individual lesions. A tube voltage of 120 KVp was used. The patient received no medications prior to the coronary calcium CT. Image Reconstruction Transaxial images were reconstructed at 0.67 mm slide thickness. Data was reviewed interactively on an advanced workstation capable of 2 and 3-dimensional displays in all conventional reconstruction formats, including multiplanar reformations, maximum intensity projections, curved multiplanar reformations, and volume rendered reconstructions. When applicable, selected routine images describing the relevant coronary anatomy and pathology were saved and sent to PACS. Complications None Technical Quality Overall image quality was good. Total DLP (Dose-Length Product) is 162 mGy-cm. The reported value represents the total of one or more individual components during the CT acquisition of this date and at this time, and as such, the same value may appear in more than one CT report depending on the interpreting/reporting physicians. COMPARISON None FINDINGS CT Coronary Calcium Scoring LMA (Left Main Artery) = 16 LAD (Left Anterior Descending) = 1278 LCX (Left Coronary Circumflex) = 0 RCA (Right Coronary Artery) = 2160 Total Calcium Score = 3454 using the AJ-130 method. There is also identifiable calcification in the ascending and descending thoracic aorta. IMPRESSION -Extensive coronary artery calcification is present. -Total Calcium Score (Agatston Score) = 3454 using the AJ-130 method. -The observed calcium score of 3454 is at 99th percentile for subjects of the same age, sex, and race/ethnicity. -Calcification in the ascending and descending thoracic aorta is also noted. The interpretation of the calcium heart score is based on the following continuum*: 0 = no calcified plaque detected (risk of coronary artery disease is very low ??? less than 5%) 1-10 = calcium detected in extremely minimal levels (risk of coronary diseases is still low ??? less than 10%) 11-100 = mild levels of plaque detected with certainty (mild or minimal narrowing of heart arteries is likely) 101-400 = definite,at least moderate levels of plaque detected (relatively high risk of a heart attack within 3-5 years) >401-999 = extensive levels of plaque detected (high risk of heart attack, high levels of vascular disease are present, high likelihood of at least one significant coronary narrowing) *The calcium heart score quantifies the burden of coronary calcification/plaque in the coronary arteries. The calcium heart score does not evaluate the presence or the burden of non-calcified (i.e. soft) plaque. The coronary and cardiac findings of this Coronary Calcium CT were reviewed, reported, and signed by Jean Pierre Paz MD (Speech Pathology Teacher). Conclusion Electronically signed by : Romi Paz MD 02/05/2024 13:17:31
== END 2024-02-05 23:59 | disposition home or self-care (01) ==
LOC: RAD 06:43
PROVIDERS: PCP Internal Medicine; Visit Provider Physician Assistant
DX: Z13.6 Encounter for screening for cardiovascular disorders (principal); I10 Essential (primary) hypertension; F17.210 Nicotine dependence, cigarettes, uncomplicated
CPT/HCPCS: 75571

== ENCOUNTER 2024-03-08 08:19 | Day surgery (SDC) | payer MEDICARE, SELFPAY ==
[2024-03-08] VITALS (11 sets, daily range): BP systolic 113–168; BP diastolic 63–89; PULSE 68–99; RESP 16–18; TEMP 36.6; O2SAT 90–97; BMI 31.4
--- NOTE | 2024-03-08 07:13 | IR_ITS ---
APPROVED REPORT Patient Location: Outpatient Spot Remover: ARAM Lundy RT (R) PROCEDURES Left heart catheterization Left ventriculogram Selective coronary angiogram INDICATION Abnormal CCTA, Coronary artery disease Informed consent was obtained prior to the procedure. COMPLICATIONS NONE Estimated Blood Loss: LESS THAN 10 ML TECHNIQUE One percent lidocaine used to anesthetize the right anterior aspect of the wrist. The right radial artery was accessed via the Seldinger technique. A 6 Yoruba sheath was placed in the right radial artery. 2.5 mg of Verapamil, 800 mcg of nitroglycerin, 1mg Lidocaine and 5000 U Heparin were given through the arterial sheath. The papa catheter was also used to perform left heart catheterization, left ventriculogram and selective coronary angiogram. At the end of the procedure the sheath was removed good hemostasis was achieved using Traclet band, patient was transferred to the postop holding area in stable condition. ANGIOGRAPHIC RESULTS The left main artery Has distal 50% stenosis The left anterior descending artery Has proximal calcified 60 to 70% stenoses followed by mid vessel 70 and 80% calcified stenoses. The LAD gives rise to a large diagonal artery which has proximal 50% stenoses The circumflex artery Is nondominant gives rise to a large ramus intermedius which has a proximal 50% stenosis while the obtuse marginal artery has 30% stenoses The right coronary artery Large dominant with proximal calcified 50 to 60% stenosis mid vessel 40% stenosis distal 50 to 60% Calcified concentric stenosis with a 50% calcified stenosis and large posterior descending artery The SHANKAR ventriculogram reveals Normal 60% The left ventricular end-diastolic pressure 15 mmHg IMPRESSION Severe coronary disease as described above Normal ejection fraction Normal LVEDP PLAN 1. Referral for bypass surgery 2. Start high intensity statin prior to bypass surgery 3. Aspirin 81 mg daily Electronically signed by : Jean Marie Burr MD 03/08/2024 11:55:58
[2024-03-08 08:48] LABS: Basophils # 0.1 K/mm3 (0-0.2); Basophils % 0.6 % (0.1-2.0); Eosinophils # 0.3 K/mm3 (0.0-0.4); Hemoglobin 14.9 g/dL (14.1-18.0); Lymphocytes # 2.6 K/mm3 (0.7-4.5); Lymphocytes % 30.4 % (10-50); Mean Corpuscular HGB Conc 33.1 g/dL (31.8-35.4); Mean Corpuscular Volume 99.6 fl (80-94); Mean Platelet Volume 9.3 fl (7.4-10.4); Monocytes # 0.6 K/mm3 (0.1-1.0); Monocytes % 6.6 % (1.7-9.3); Neutrophils % 59.4 % (37.0-80.0); Platelet Count 239 K/mm3 (142-424); Red Blood Count 4.52 M/mm3 (4.60-6.20); Red Cell Distribution Width 13.8 % (11.5-17.5); White Blood Count 8.4 K/mm3 (4.8-10.8)
[2024-03-08 09:06] LABS: Chloride 109 mmol/L (98-107)
[2024-03-08 09:07] LABS: Potassium 4.9 mmoL/L (3.5-5.1); Sodium 142 mmol/L (136-145)
[2024-03-08 09:09] LABS: Blood Urea Nitrogen 17 mg/dl (9-20); Creatinine Clearance Estimated 92 mL/min (50-200); Estimated Glomerular Filt Rate 75 ml/min (>60); GFR (African American) 90 ML/MIN (>60)
[2024-03-08 09:10] LABS: Anion Gap 9.9 mEq/L (5-15); Calcium 9.9 mg/dl (8.4-10.2); Carbon Dioxide 28 mmol/L (22.0-30.0); Glucose 111 mg/dl (74-100)
[2024-03-08] MEDS: VERAPAMIL 2.5MG/ML 2ML VIAL 2.5 MG IV (11:10)
[2024-03-08] MEDS: LIDOCAINE 1% 10ML MDV 20 ML IJ (11:10)
[2024-03-08] MEDS: HEPARIN 1,000 UNITS/500ML NS (CATH LAB) 3000 UNIT IV (11:10)
[2024-03-08] MEDS: HEPARIN 1,000 UNITS/ML 10ML VIAL (CATH LAB) 10000 UNIT IV (11:10)
[2024-03-08] MEDS: diphenhydrAMINE 50MG/ML VIAL 50 MG IV (11:10)
[2024-03-08] MEDS: 0.9 % SODIUM CHLORIDE 500 ML 25 ML IV (11:10)
[2024-03-08] MEDS: NITROGLYCERIN 800MCG/8ML SYR (CATH LAB) 800 MCG IA (11:11)
[2024-03-08] MEDS: MIDAZOLAM HCL 1MG/1ML 5ML VIAL 1 MG IV (11:46)
[2024-03-08] MEDS: FENTANYL 100MCG/2ML VIAL 50 MCG IV (11:47)
[2024-03-08] MEDS: IOPAMIDOL-370 (76%);100ML BOTTLE 80 ML IV (12:14)
== END 2024-03-08 14:07 | disposition home or self-care (01) ==
PROVIDERS: PCP Internal Medicine; Visit Provider Internal Medicine
DX: R93.1 Abnormal findings on diagnostic imaging of heart and coronary circulation; I25.118 Atherosclerotic heart disease of native coronary artery with other forms of angina pectoris; Z79.899 Other long term (current) drug therapy; F17.210 Nicotine dependence, cigarettes, uncomplicated; I10 Essential (primary) hypertension; E78.5 Hyperlipidemia, unspecified; R94.31 Abnormal electrocardiogram [ECG] [EKG]; Z79.01 Long term (current) use of anticoagulants; Z95.828 Presence of other vascular implants and grafts
CPT/HCPCS: 80048; 85025; 93458; 99152; C1725; C1769; J1644; J2250; J3010; Q9967

== ENCOUNTER 2024-04-11 07:43 | Outpatient (CLI) | payer MEDICARE, SELFPAY ==
--- NOTE | 2024-04-11 | CA_ITS ---
FINAL REPORT TECHNIQUE: Color Doppler, duplex Doppler and lowery scale sonography of the bilateral neck arterial vasculature was performed. Velocities were measured in the carotid arteries. Stenosis evaluation based on the validated velocity criteria. CLINICAL HISTORY: .smoker, cad, htn COMPARISON: None FINDINGS: The peak systolic velocity of the right common carotid artery is 102 cm/s. The peak systolic velocity of the right internal carotid artery is 76 cm/s and end diastolic velocity 15 cm/s. The ICA/CCA ratio is 0.90. A mild to moderate amount of plaque is present. The right external carotid artery is patent. The right vertebral artery is patent with antegrade flow. The peak systolic velocity of the left common carotid artery is 71 cm/s. The peak systolic velocity of the left internal carotid artery is 111 cm/s and end diastolic velocity 35 cm/s. The ICA/CCA ratio is 1.81. A mild to moderate amount of plaque is present. The left external carotid artery is patent.The left vertebral artery is patent with antegrade flow. IMPRESSION: Less than 50% bilateral carotid stenoses. Bilateral patent vertebral arteries with antegrade flow. If indicated, CTA or MRA could further evaluate. Reviewed, Interpreted and Dictated by Luisito Javed III, MD Transcribed by Felicia Bautista Authenticated and [facility]
--- NOTE | 2024-04-11 | CA_ITS ---
APPROVED REPORT EXAM: Comprehensive 2D, Doppler, and color-flow Echocardiogram Audiology Technician: EZEKIEL Deleon, RVS Ht: 5 ft 6 in Wt: 201lbs BSA: 2.00 BP: 132/79 mmHg Indications: CAD, HTN, Smoker, HLD, GERD Echo Enhancing Agent Comments: Poor acoustic windows throughout exam 2D Dimensions LA Volume 60.30 mL LA Volume Index 30.806401 mL/m2 (M/F) 16-34 EF AP4 56.10 % GL Strain -16.7 % M-Mode Dimensions RVDd 2.52 cm (0.9-2.6) LA Diam 4.41 cm (1.9-4.0) LVDd 5.29 cm (3.5-5.7) LVDs 3.00 cm (3.5-5.7) IVSd 1.08 cm (0.6-1.1) PWd 1.20 cm (0.6-1.1) EF (Teich) 74.00% EPSs 1.45 cm FS 43.30% EDV (Teich) 134.80 mL TAPSE 2.45 (<1.7) ESV (Teich) 35.00 mL LV Diastology E Decel Time 150 (160-240 msec) E/A Ratio 0.75 MED A' 12.60 cm/s LAT A' 17.10 cm/s Aortic Valve [place] Index 1.21 cm2/m2 AoV Peak Sanjay. 141.0 (50-130 cm/s) AO Peak GR. 8.00 mmHg AO Mean GR. 4.00 (<5 mmHg) AO VTI 25.4 (18-25 cm) [place] (VTI) 2.49 (2.5-4.5 cm2) Mitral Valve MV A Velocity 117.0 (40-130 cm/s) E/A Ratio 0.75 Pulmonary Valve PV Peak Velocity 94.0 (50-150 cm/s) Tricuspid Valve TR P. Velocity 12.00 cm/s Left Ventricle The left ventricle is normal size. The left ventricular systolic function is normal. The left ventricular ejection fraction is within the normal range. There is increased LV wall thickness. There is normal LV segmental wall motion. Transmitral Doppler flow pattern suggests impaired LV relaxation. LVEF is 60%. Right Ventricle The right ventricle is normal size. The right ventricular systolic function is normal. Atria The left atrium size is normal. The right atrium size is normal. There is no Doppler evidence of interatrial shunt. Aortic Valve The aortic valve is mildly thickened. There is no aortic valvular stenosis. Trace aortic regurgitation. Mitral Valve The mitral valve is normal in structure. No evidence of mitral valve stenosis. There is no mitral valve regurgitation noted. Tricuspid Valve The tricuspid valve leaflts are thin and pliable. Trace tricuspid regurgitation. There is insufficient TR jet to estimate RVSP. Pulmonic Valve The pulmonary valve is normal in structure. Trace pulmonic regurgitation. Great Vessels The aortic root is normal in size. The ascending aorta is normal in size. IVC is normal in size and collapses >50% with inspiration. Pericardium There is no pericardial effusion. Other Information Study Quality: Fair Conclusion Normal biventricular systolic function. No significant valvular stenosis or regurgitation. Electronically signed by : Romi Paz MD 04/14/2024 14:06:31
== END 2024-04-11 23:59 | disposition home or self-care (01) ==
LOC: RT 07:43
PROVIDERS: PCP Internal Medicine; Visit Provider Nurse Practitioner Family
DX: I65.23 Occlusion and stenosis of bilateral carotid arteries (principal); I25.118 Atherosclerotic heart disease of native coronary artery with other forms of angina pectoris; I79.8 Other disorders of arteries, arterioles and capillaries in diseases classified elsewhere; F17.210 Nicotine dependence, cigarettes, uncomplicated
CPT/HCPCS: 93306; 93880

== ENCOUNTER 2024-04-30 07:37 | Outpatient (CLI) | payer MEDICARE, SELFPAY ==
--- NOTE | 2024-04-30 07:37 | NM_ITS ---
APPROVED REPORT Exam: Nuclear Stress Test Indication: CAD, HTN, DM, High cholesterol, Tobacco use Patient Location: Outpatient Stress Tech: Maral Canales [place] Tech:Yasmeenerik Sinclair, ARRT, RT (R)(N) Ht: 5 ft 6 in Wt: 205 lbs HR: 79 bpm BP: 132/79 mmHg BSA: 2.02 m2 Rhythm: NSR TID: 1.04 BMI: 33.0 History: CAD, HTN, DM, High cholesterol, Tobacco use Procedure: Patient received 0.4 mg of intravenous Lexiscan, resting heart rate 79 bpm, resting blood pressure 132/79 mmHg, with Lexiscan maximum heart rate achieved was 100 bpm which is % of the maximum predicted heart rate and blood pressure was 151/83 mmHg. With Lexiscan, patient denied any complaint of chest pain. Cardiac Stress and Resting SPECT Images: Cardiac Stress and Resting SPECT images were obtained using technetium 99m Myoview 30.1 mCi stress and 10.69 mCi at rest. Resting and stress imaging in supine and prone positions demonstrate no evidence of fixed or reversible perfusion defects. Gated imaging demonstrates normal global and regional LV systolic function. LVEF is calculated at 56%. Conclusion: No evidence of fixed or reversible perfusion defects. Gated imaging demonstrates normal global and regional LV systolic function. LVEF is calculated at 56%. Electronically signed by : Romi Paz MD 04/30/2024 14:43:55
--- NOTE | 2024-04-30 07:37 | CA_ITS ---
APPROVED REPORT Exam: Pharmacologic Technologist: Maral Canales, Ht: 5 ft 7 in Wt: 205 lbs BSA: 2.04 m2 HR: 75 bpm BP: 137/79 mmHg Rhythm: NSR Medical History Medical History: HTN, Hyperlipidemia, , Smoking Medications: Amlodipine,,,,, Omeprazole,,,,, Gabapentin,,,,, Atorvastatin,,,,, Flonase,,,,, Buspirone,,,,, TAMSULOSIN,,,,, CloPIdogrel,,,,, OxYCODONE,,,,, Celecoxib,,,,, Cyclobenzaprine,,,,, Escitalopram Oxalate,,,,, Allergies: No known drug allergies Cardiac Risk Factors: HTN, Hyperlipidemia, Smoking Stress Test Details Test: LEXISCAN HR Resting HR: 79 bpm Max Heart Rate (APMHR): 152 bpm Max HR Achieved: 100 bpm Target HR (85% APMHR): 129 bpm % of APMHR: 66 Recovery HR: 86 bpm BP Resting BP: 132/79 mmHg Max BP: 151/83 mmHg Recovery BP: 145.0/77.0 mmHg ECG Resting ECG: NSR Stress ECG: No significant ST changes Arrhythmia: PVCs Clinical Exercise duration: 04:01 min Highest Stage Achieved: Stress ECG Conclusion Pt had no symptoms Ectopy; PVCs No significant ST changes Conclusion: EKG unremarkable due to lexiscan infusion. Myoview images reported separately. Test Summary REST 08:25 . . 79 . 132/ 79 . . Stage 1 . . . . . . . Myoview Injected Stage 1 01:00 . . 96 . . . . Stage 2 01:00 . . 97 . 121/ 75 . . Stage 3 01:00 . . 95 . 151/ 83 . . Stage 4 01:00 . . 89 . 151/ 83 . . Stage 4 01:01 . . 89 . 151/ 83 . Stop exercise at 04:01 RECOVERY 01:00 . . 86 . 135/ 81 . . RECOVERY 01:53 . . 86 . 145/ 77 . . Electronically signed by : Romi Paz MD 04/30/2024 14:42:13
[2024-04-30] MEDS: REGADENOSON 0.4MG/5ML SYRINGE 0.4 MG IV (09:46)
[2024-04-30] MEDS: SODIUM CHLORIDE 0.9% 10ML SYR (RAD ONLY) 10 ML IV ×2 (09:46)
[2024-04-30] MEDS: ISOTOPE MYOVIEW (PER STUDY) 1 DOSE IV (09:46)
== END 2024-04-30 23:59 | disposition home or self-care (01) ==
LOC: RAD 07:37
PROVIDERS: PCP Internal Medicine; Visit Provider Internal Medicine
DX: I25.118 Atherosclerotic heart disease of native coronary artery with other forms of angina pectoris (principal); R93.1 Abnormal findings on diagnostic imaging of heart and coronary circulation; R94.31 Abnormal electrocardiogram [ECG] [EKG]; Z72.0 Tobacco use; I10 Essential (primary) hypertension; E78.2 Mixed hyperlipidemia
CPT/HCPCS: 78452; 93017; 93018; A9502; J2785

== ENCOUNTER 2024-05-14 08:30 | Outpatient (CLI) | payer MEDICARE, SELFPAY ==
[2024-05-14 19:25] LABS: Creatinine,Urine Random 162 mg/dL (Not Estab.)
[2024-05-14 19:29] LABS: Microalbumin/Creatinine Ratio 10.4
== END 2024-05-14 23:59 | disposition home or self-care (01) ==
LOC: LAB.DROPOF 05-15 10:10
PROVIDERS: PCP Internal Medicine; Visit Provider Internal Medicine
DX: R73.03 Prediabetes (principal)
CPT/HCPCS: 82043; 82570

== ENCOUNTER 2024-06-20 08:23 | Outpatient (POV) | payer MEDICARE, SELFPAY ==
--- NOTE | 2024-06-20 08:43 | A.OFFVIS_ITS ---
[facility] Disclaimer: The information contained in this section may have been updated after the patient was seen, as this information can be updated by other users. Medical History Abnormal electrocardiogram [ECG] [EKG] Abnormal Heart Score CT Atypical angina Agatston coronary artery calcium score greater than 400 Kidney stones CAD (coronary artery disease) Depression HTN (hypertension) GERD (gastroesophageal reflux disease) Prostate disorder Obesity Hyperlipidemia Surgical History History of surgery on lower extremity Hx of colonoscopy History of arthroscopic surgery of shoulder RIGHT Family History Other Arthritis Diabetes Social History Smoking Status: Current every day smoker tobacco type: cigarettes packs per day: 1 alcohol intake: current alcohol intake frequency: a few times a week substance use type: denies use current occupational status: other Travel in the last 8 weeks: None 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 Today he rates his pain a 3 out of 10. He denies any new trauma or injury. He does state overall he is doing well. Patient states his [employer] stimulator is working well and does not need to be reprogrammed. Patient states the only other changes he has had from our last visit is he has had some heart related problems. Patient states he did end up having to have a heart cath and the most recent was a stress test however it came back okay. Patient states that he had 2 different grinder operator surface tool mention possible heart stents or bypass surgery however now they are just planning on waiting. Patient does state he is no longer taking the gabapentin from his PCP because they did not feel like it was giving substantial improvement. He is still on the oxycodone from his primary. His Tino has been reviewed and is appropriate. Review of Systems: General: No recent weight changes, no fever, no sleep disturbances Respiratory: No cough, no shortness of air, no recurring pulmonary infections Cardiovascular/peripheral vascular: No chest pain, no palpitations, no edema, no shortness of breath Gastrointestinal: No new onset incontinence, normal bowel movements reported Genitourinary: No new onset incontinence Musculoskeletal: Low back pain Psychiatric: [Normal mood/affect] Neurological: [Denies weakness in extremities], [denies balance issues] Pain at rest (0-10 scale): 3 Objective Objective:: Physical Exam: General: Alert and oriented x3, no acute distress, pleasant and cooperative Lungs: Respirations even and unlabored, symmetrical chest expansion Eyes: PERRL Musculoskeletal: Flexion and extension of lumbar [spine] somewhat guarded secondary to pain, [antalgic gait noted] Neurological: Speech clear, no gross sensory deficit Has patient had previous pain injection?: No Conservative treatment options previously tried: Home exercise plan Length of treatment: Longer than 12 weeks Meds Home Medications and Allergies Home Medications ?Medication ?Instructions ?Recorded ?Confirmed ?Type buspirone 15 mg tablet 15 mg PO TID #90 tabs 02/05/24 06/05/24 Rx amlodipine 10 mg tablet 10 mg PO DAILY 90 days #90 tabs 02/14/24 06/05/24 Rx celecoxib 200 mg capsule See Rx Instructions .Route 02/14/24 06/05/24 Rx .COMPLEX #180 caps escitalopram oxalate 20 mg tablet 20 mg PO DAILY 90 days #90 tabs 02/14/24 06/05/24 Rx omeprazole 20 mg capsule,delayed See Rx Instructions .Route 02/14/24 06/05/24 Rx release .COMPLEX #90 caps atorvastatin 80 mg tablet 80 mg PO DAILY #90 tabs 02/20/24 06/05/24 Rx clopidogrel 75 mg tablet 75 mg PO 02/26/24 06/05/24 History metoprolol succinate 25 mg 25 mg PO BID #180 tabs 04/17/24 06/05/24 Rx tablet,extended release 24 hr (Toprol XL) aspirin 81 mg tablet,delayed 81 mg PO DAILY #30 tabs 04/23/24 06/05/24 Rx release (Adult Low Dose Aspirin) chlorthalidone 25 mg tablet 25 mg PO DAILY #30 tabs 04/25/24 06/05/24 Rx lisinopril 20 mg tablet 20 mg PO DAILY #30 tabs 04/25/24 06/05/24 Rx tamsulosin 0.4 mg capsule See Rx Instructions .Route 05/10/24 06/05/24 Rx .COMPLEX #90 caps cyclobenzaprine 10 mg tablet See Rx Instructions .Route 06/07/24 Rx .COMPLEX #90 tabs oxycodone 15 mg tablet 15 mg PO TID PRN pain 30 days #90 06/13/24 Rx tabs fluticasone propionate 50 See Rx Instructions .Route 06/18/24 Rx mcg/actuation nasal .COMPLEX #16 grams spray,suspension New Prescriptions to Start Prescriptions: Allergies Allergy/AdvReac Type Severity Reaction Status Date / Time No Known Drug Allergies Allergy Unknown Verified 06/05/24 11:20 [NKDA] Assessment and Plan *Assessment and plan (1) Lumbar radiculopathy, chronic: Status: Acute Category: Medical Code(s): M54.16 - Radiculopathy, lumbar region Plan Patient is doing well currently and does not require any additional interventions at this time. Patient will return to clinic in for reevaluation of symptoms and plan of care. Patient has been instructed to contact the clinic with any concerns before the next appointment. Dr. Marcelo has reviewed this note and agrees with this plan of care. This note was dictated using voice recognition software and make contain errors or omissions. All injections are used with Lidocaine or Bupivacaine and Depo Medrol.
[2024-06-20 09:17] VITALS: BP 159/83; PULSE 92; RESP 18; O2SAT 95; BMI 33.0
== END 2024-06-20 23:59 | disposition home or self-care (01) ==
LOC: SC.PAIN 08:25
PROVIDERS: PCP Internal Medicine; Visit Provider Nurse Practitioner Family
DX: M54.16 Radiculopathy, lumbar region (principal); F17.210 Nicotine dependence, cigarettes, uncomplicated
CPT/HCPCS: 99212; G0463

== ENCOUNTER 2024-10-22 19:13 | Outpatient (CLI) | payer MEDICARE, SELFPAY ==
[2024-10-22 18:35] LABS: Microalbumin/Creatinine Ratio 56.1
[2024-10-22 18:38] LABS: Creatinine,Urine Random 107 mg/dL (Not Estab.)
== END 2024-10-22 23:59 | disposition home or self-care (01) ==
LOC: LAB.DROPOF 19:14
PROVIDERS: PCP Internal Medicine; Visit Provider Internal Medicine
DX: I10 Essential (primary) hypertension (principal); R73.03 Prediabetes
CPT/HCPCS: 82043; 82570

== ENCOUNTER 2024-12-09 07:18 | Outpatient (CLI) | payer MEDICARE, SELFPAY ==
--- NOTE | 2024-12-09 07:30 | CT_ITS ---
FINAL REPORT CLINICAL HISTORY: lung cancer screening. smoker. 1ppd for 50 years. FINDINGS: Axial images were obtained from the lung apex to the mid abdomen by computed tomography. Low-dose protocol was utilized. CTDl vol(mGy): 2.90 DLP (mGy-cm): 114.64 FINDINGS: There is no axillary adenopathy. There is no hilar or mediastinal adenopathy. There are calcified right hilar lymph nodes. There is dense coronary artery calcification. The heart size is normal. There is no pericardial or pleural effusion. Limited images of the upper abdomen demonstrate a nonobstructing stone in the right renal collecting system measuring 6 mm. This is best seen on image 401. Lung window images demonstrate a 3 mm nodule along the right major fissure on image 59 of series 3. IMPRESSION: 3 mm nodule along the right major fissure. Lung RADS category 2. 12-month follow-up low-dose chest CT is recommended. Coronary artery calcifications. Lung RADS category S Nonobstructing right renal stone. Lung RADS category S Reviewed, Interpreted and Dictated by Nas Montalvo MD Transcribed by Olive Littlejohn Authenticated and [facility]
== END 2024-12-09 23:59 | disposition home or self-care (01) ==
LOC: RAD 07:19
PROVIDERS: PCP Family Medicine; Visit Provider Family Medicine
DX: F17.210 Nicotine dependence, cigarettes, uncomplicated (principal)
CPT/HCPCS: 71271

== ENCOUNTER 2024-12-13 08:20 | Day surgery (SDC) | payer MEDICARE, SELFPAY ==
[2024-12-10 10:56] VITALS: BMI 33.7
[2024-12-13 08:52] VITALS: BP 164/84; PULSE 82; RESP 18; TEMP 36.2; O2SAT 97
[2024-12-13] MEDS: LACTATED RINGERS 1000ML 1,000 ML 50 ML IV (09:03)
--- NOTE | 2024-12-13 09:14 | EXP.ANES.CKL ---
[facility] Disclaimer: The information contained in this section may have been updated after the patient was seen, as this information can be updated by other users. Medical History Cigarette smoker Screening for colon cancer half-way use of drug Abnormal electrocardiogram [ECG] [EKG] Abnormal Heart Score CT Atypical angina Agatston coronary artery calcium score greater than 400 Kidney stones CAD (coronary artery disease) Depression HTN (hypertension) GERD (gastroesophageal reflux disease) Prostate disorder Obesity Hyperlipidemia Surgical History History of surgery on lower extremity Hx of colonoscopy History of arthroscopic surgery of shoulder Family History Other Arthritis Diabetes Social History Smoking Status: Current every day smoker tobacco type: cigarettes packs per day: 1 alcohol intake: never substance use type: denies use current occupational status: other Travel in the last 8 weeks: None current occupation: retired Have you lived/traveled outside [place] in past 30 days?: No Contact w/someone who lives/traveled outside US past 30 days?: No Exposure to someone with infectious disease in past 14 days?: No Do you have a fever (greater than 100.4 F or 38 C)?: No Have you tested positive for COVID-19: No Exposed to someone with COVID-19 in past 14 days?: No Do you have a sore throat?: No Do you have a cough?: No Do you have any weakness?: No Do you have any diarrhea?: No Are you experiencing any unusual bleeding?: No Do you have any muscle aches/pain?: No Do you have any abdominal pain?: No Are you experiencing loss of taste or smell?: No [facility] Anesthesia Checklist Patient Identification Patient Identification: Arm Band Structural Data Admitted From: Home Planned Operative Procedure/s: Colonoscopy Consent for Planned Operative Procedure(s) Verified: Yes Verified Documents: Surgical Consent and History and Physical NPO Status Verified Time NPO: 00:00 Additional verifications Anesthesia Reactions: No Hx Blood Transfusions: No Blood Transfusion Reaction: No Airway Assessment Mallampati Score:: Class II C-Spine Mobility Assessed: Yes TMJ Mobility Assessed: Yes Dentition: Dentures-good fit (upper and lower dentures) Neurological Assessment Level of Consciousness: Awake, Alert and Appropriate Anesthesia Plan Anesthesia Risk discussed: Yes Anesthesia Plan: Verified ASA Class: III Anesthesia Type: MAC
--- NOTE | 2024-12-13 09:15 | P.HP_ITS ---
HPI HPI HPI: Patient is a 69-year-old male with history of tobacco abuse coronary artery disease, on clopidogrel, hypertension, chronic arterial occlusive disease, cerebrovascular disease, degenerative disc disease on oxycodone, who presents for screening colonoscopy. I had previously performed colonoscopy in 2017 and he had benign polyps. [facility] Disclaimer: The information contained in this section may have been updated after the patient was seen, as this information can be updated by other users. Medical History (Updated 12/13/24 @ 10:11 by Luisito Freed MD) Cigarette smoker Screening for colon cancer [facility] use of drug Abnormal electrocardiogram [ECG] [EKG] Abnormal Heart Score CT Atypical angina Agatston coronary artery calcium score greater than 400 Kidney stones CAD (coronary artery disease) Depression HTN (hypertension) GERD (gastroesophageal reflux disease) Prostate disorder Obesity Hyperlipidemia Surgical History History of surgery on lower extremity Hx of colonoscopy History of arthroscopic surgery of shoulder Family History Other Arthritis Diabetes Social History Smoking Status: Current every day smoker tobacco type: cigarettes packs per day: 1 alcohol intake: never substance use type: denies use current occupational status: other Travel in the last 8 weeks: None current occupation: retired Have you lived/traveled outside [place] in past 30 days?: No Contact w/someone who lives/traveled outside [place] past 30 days?: No Exposure to someone with infectious disease in past 14 days?: No Do you have a fever (greater than 100.4 F or 38 C)?: No Have you tested positive for COVID-19: No Exposed to someone with COVID-19 in past 14 days?: No Do you have a sore throat?: No Do you have a cough?: No Do you have any weakness?: No Do you have any diarrhea?: No Are you experiencing any unusual bleeding?: No Do you have any muscle aches/pain?: No Do you have any abdominal pain?: No Are you experiencing loss of taste or smell?: No Other Medical History Have you received the Flu Vaccine for this season: Yes Have you received the Pneumonia Vaccine: No Review of Systems Review of Systems Review of systems:: pertinent systems reviewed and negative unless documented below Meds Home Medications and Allergies Home Medications ?Medication ?Instructions ?Recorded ?Confirmed ?Type amlodipine 10 mg tablet 10 mg PO DAILY 90 days #90 tabs 02/14/24 12/13/24 Rx escitalopram oxalate 20 mg tablet 20 mg PO DAILY 90 days #90 tabs 02/14/24 12/13/24 Rx omeprazole 20 mg capsule,delayed See Rx Instructions .Route 02/14/24 12/13/24 Rx release .COMPLEX #90 caps atorvastatin 80 mg tablet 80 mg PO DAILY #90 tabs 02/20/24 12/13/24 Rx metoprolol succinate 25 mg 25 mg PO BID #180 tabs 04/17/24 12/13/24 Rx tablet,extended release 24 hr (Toprol XL) aspirin 81 mg tablet,delayed 81 mg PO DAILY #30 tabs 04/23/24 12/13/24 Rx release (Adult Low Dose Aspirin) clopidogrel 75 mg tablet See Rx Instructions .Route 07/18/24 12/13/24 Rx .COMPLEX #90 tabs oxycodone 10 mg tablet 10 mg PO TID PRN pain 30 days #90 11/28/24 12/13/24 Rx tabs buspirone 15 mg tablet See Rx Instructions .Route 12/06/24 12/13/24 Rx .COMPLEX #90 tabs celecoxib 200 mg capsule See Rx Instructions .Route 12/06/24 12/13/24 Rx .COMPLEX #60 caps cyclobenzaprine 10 mg tablet See Rx Instructions .Route 12/06/24 12/13/24 Rx .COMPLEX #90 tabs fluticasone propionate 50 See Rx Instructions .Route 12/06/24 12/13/24 Rx mcg/actuation nasal .COMPLEX #16 grams spray,suspension lisinopril 20 mg tablet See Rx Instructions .Route 12/06/24 12/13/24 Rx .COMPLEX #90 tabs tamsulosin 0.4 mg capsule See Rx Instructions .Route 12/06/24 12/13/24 Rx .COMPLEX #30 caps New Prescriptions to Start Prescriptions: Allergies Allergy/AdvReac Type Severity Reaction Status Date / Time No Known Drug Allergies Allergy Unknown Verified 11/28/24 11:04 (NKDA) Exam Data for Last 24 hours Vital signs and Labs for Last 24 Hours: Temp Pulse Resp BP Pulse Ox O2 Del Method 97.2 F L 82 18 164/84 H 97 Room Air 12/13/24 08:52 12/13/24 08:52 12/13/24 08:52 12/13/24 08:52 12/13/24 08:52 12/13/24 08:52 I & O for Last 24 hours: Intake & Output 12/10/24 12/11/24 12/12/24 12/13/24 11:59 11:59 11:59 11:59 Weight 209 lb Constitutional Constitutional: no acute distress *Routine HEENT Exam Head: Present normocephalic Eye: Present EOMI and PERRL ENT: Present mucous membranes moist *Routine Neck Exam Neck: Present supple; Absent lymphadenopathy *Routine Respiratory Exam Respiratory: Present CTA bilaterally *Routine Cardiovascular Exam Cardiovascular: Present RRR *Routine Abdominal Exam Abdominal: Present soft and normoactive bowel sounds; Absent tenderness *Routine Rectal Exam Rectal:: deferred *Routine Genitalia Exam Genitalia:: deferred *Routine Extremities Exam Extremities: Absent cyanosis, clubbing or edema *Routine Skin Exam Skin: Present warm; Absent rash *Routine Neurological Exam Neurological: Present alert and oriented X3 Assessment and Plan *Assessment and plan (1) Encounter for screening colonoscopy: Status: Acute Category: Medical Code(s): Z12.11 - Encounter for screening for malignant neoplasm of colon Plan Colonoscopy
[2024-12-13 09:27] VITALS: O2SAT 97
--- NOTE | 2024-12-13 10:12 | P.PCN_ITS ---
Procedure: Date: 12/13/24 Patient Date of :: 1955 Procedure Performed:: Total colonoscopy to terminal ileum with multiple polypectomy using snare and biopsy forceps Indications:: Patient is a 69-year-old male with history of tobacco abuse coronary artery disease, on clopidogrel, hypertension, chronic arterial occlusive disease, cerebrovascular disease, degenerative disc disease on oxycodone, who presents for screening colonoscopy. I had previously performed colonoscopy in 2017 and he had benign polyps. Performing Provider:: Luisito Freed MD Referring Provider:: Esteban Plasencia MD Sedation:: MAC sedation Procedure:: Patient history was obtained and appropriate physical examination was performed. Patient's medications and allergies were reviewed. Informed consent was obtained after explaining the benefits, alternatives, and risks of the procedure including, but not limited to, bleeding, perforation, missed lesions, and adverse reaction to anesthesia medications. Patient was transported to endoscopy procedure room. Patient was connected to monitoring devices. Throughout the procedure the patient's blood pressure, pulse, and oxygen saturations were monitored continuously. Patient i dentification and planned procedure were verified by the staff. Patient was positioned in lateral decubitus position. Digital anorectal exam was performed. Variable stiffness Olympus colonoscope was inserted and advanced under direct visualization to the cecum. Adequacy of the colonic preparation was noted. The colonoscope was advanced a short distance into the terminal ileum. The colonoscope was then slowly withdrawn while carefully examining the color, texture, anatomy, and integrity of the mucosoa circumferentially. Within the rectum retroflexion was performed. Colonoscope was then withdrawn. Impression There was some particulate liquid stool throughout the colon. High-volume trans colonoscopic irrigation and suctioning was performed which allowed for adequate visualization. There were findings of mild melanosis coli. In the cecum there was a sessile diminutive polyp removed with cold snare. In the ascending colon there were several diminutive polyps, 3, removed with cold snare. In the rectosigmoid region there were too numerous to count hyperplastic appearing polyps. Larger of which were sampled with biopsy forceps. There were 10 polyps . Retroflexion within the rectum revealed internal anal papilla. . Findings:: Fair preparation but adequate visualization with high-volume trans colonoscopic irrigation and suctioning Findings consistent with diffuse mild melanosis coli. Small sessile cecal polyp Ascending colon polyp x 3 Numerous hyperplastic appearing rectosigmoid polyps, 10 of which were sampled with biopsy forceps Internal anal papilla Recommendations:: Follow-up colonoscopy pending pathology, potentially 2 to 3 years. Complications:: None immediately apparent Estimated blood obtained (mL): 2 Colonoscopy Component Colonoscopy Component Was a colonoscopy performed during today's procedure?: Yes Recommended follow up colonoscopy of at least 10 years?: No If no, follow up colonoscopy recommended in ___ years?: 2-3 Reason for not recommending >/= 10 yr follow-up interval?: See above
[2024-12-13 10:15] VITALS: BP 91/51; PULSE 77; RESP 16; TEMP 36.8; O2SAT 90
[2024-12-13 10:25] VITALS: BP 94/64; PULSE 70; RESP 16; O2SAT 92
[2024-12-13 10:35] VITALS: BP 95/70; PULSE 74; RESP 16; O2SAT 94
[2024-12-13 10:42] VITALS: BP 123/62; PULSE 72; RESP 16; O2SAT 95
== END 2024-12-13 10:42 | disposition home or self-care (01) ==
PROVIDERS: PCP Family Medicine; Visit Provider Surgery
PROC: 0DJD8ZZ Inspection of Lower Intestinal Tract, Via Natural or Artificial Opening Endoscopic (ICD-10-PCS; CPT 45380; principal; 2024-12-13 10:00)
DX: K63.5 Polyp of colon (principal); D12.0 Benign neoplasm of cecum; K63.89 Other specified diseases of intestine; Z12.11 Encounter for screening for malignant neoplasm of colon; Z86.0100 Personal history of colon polyps, unspecified
CPT/HCPCS: 45380; 45385; 88305; J2003; J2704; J7120

== ENCOUNTER 2024-12-18 08:26 | Outpatient (POV) | payer MEDICARE, SELFPAY ==
--- NOTE | 2024-12-18 08:51 | A.OFFVIS_ITS ---
[facility] Disclaimer: The information contained in this section may have been updated after the patient was seen, as this information can be updated by other users. Medical History (Updated 12/17/24 @ 17:36 by Everette Plasencia MD) Tubular adenoma of colon Cigarette smoker Screening for colon cancer nursing home use of drug Abnormal electrocardiogram [ECG] [EKG] Abnormal Heart Score CT Atypical angina Agatston coronary artery calcium score greater than 400 Kidney stones CAD (coronary artery disease) Depression HTN (hypertension) GERD (gastroesophageal reflux disease) Prostate disorder Obesity Hyperlipidemia Surgical History History of surgery on lower extremity Hx of colonoscopy History of arthroscopic surgery of shoulder Family History Other Arthritis Diabetes Social History Smoking Status: Current every day smoker tobacco type: cigarettes packs per day: 1 alcohol intake: never substance use type: denies use current occupational status: other Travel in the last 8 weeks: None 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 Today he rates his pain a 4 out of 10. He denies any new changes or injuries from our last visit. He states he continues to get good relief with his [employer] spinal cord stimulator and feels like the programming is doing well and does not need any additional adjustment. Patient is prescribed oxycodone from his primary care. His Tino has been reviewed and is appropriate. Review of Systems: General: No recent weight changes, no fever, no sleep disturbances Respiratory: No cough, no shortness of air, no recurring pulmonary infections Cardiovascular/peripheral vascular: No chest pain, no palpitations, no edema, no shortness of breath Gastrointestinal: No new onset incontinence, normal bowel movements reported Genitourinary: No new onset incontinence Musculoskeletal: Low back pain Psychiatric: [Normal mood/affect] Neurological: [Denies weakness in extremities], [denies balance issues] Pain at rest (0-10 scale): 4 Objective Objective:: Physical Exam: General: Alert and oriented x3, no acute distress, pleasant and cooperative Lungs: Respirations even and unlabored, symmetrical chest expansion Eyes: PERRL Musculoskeletal: Flexion and extension of lumbar [spine] somewhat guarded secondary to pain, [antalgic gait noted] Neurological: Speech clear, no gross sensory deficit Has patient had previous pain injection?: No Conservative treatment options previously tried: Home exercise plan Length of treatment: Longer than 12 weeks Meds Home Medications and Allergies Home Medications ?Medication ?Instructions ?Recorded ?Confirmed ?Type amlodipine 10 mg tablet 10 mg PO DAILY 90 days #90 tabs 02/14/24 12/13/24 Rx escitalopram oxalate 20 mg tablet 20 mg PO DAILY 90 days #90 tabs 02/14/24 12/13/24 Rx omeprazole 20 mg capsule,delayed See Rx Instructions .Route 02/14/24 12/13/24 Rx release .COMPLEX #90 caps atorvastatin 80 mg tablet 80 mg PO DAILY #90 tabs 02/20/24 12/13/24 Rx metoprolol succinate 25 mg 25 mg PO BID #180 tabs 04/17/24 12/13/24 Rx tablet,extended release 24 hr (Toprol XL) aspirin 81 mg tablet,delayed 81 mg PO DAILY #30 tabs 04/23/24 12/13/24 Rx release (Adult Low Dose Aspirin) clopidogrel 75 mg tablet See Rx Instructions .Route 07/18/24 12/13/24 Rx .COMPLEX #90 tabs oxycodone 10 mg tablet 10 mg PO TID PRN pain 30 days #90 11/28/24 12/13/24 Rx tabs buspirone 15 mg tablet See Rx Instructions .Route 12/06/24 12/13/24 Rx .COMPLEX #90 tabs celecoxib 200 mg capsule See Rx Instructions .Route 12/06/24 12/13/24 Rx .COMPLEX #60 caps cyclobenzaprine 10 mg tablet See Rx Instructions .Route 12/06/24 12/13/24 Rx .COMPLEX #90 tabs fluticasone propionate 50 See Rx Instructions .Route 12/06/24 12/13/24 Rx mcg/actuation nasal .COMPLEX #16 grams spray,suspension lisinopril 20 mg tablet See Rx Instructions .Route 12/06/24 12/13/24 Rx .COMPLEX #90 tabs tamsulosin 0.4 mg capsule See Rx Instructions .Route 12/06/24 12/13/24 Rx .COMPLEX #30 caps New Prescriptions to Start Prescriptions: Allergies Allergy/AdvReac Type Severity Reaction Status Date / Time No Known Drug Allergies Allergy Unknown Verified 11/28/24 11:04 (NKDA) Assessment and Plan *Assessment and plan (1) DDD (degenerative disc disease), lumbar: Status: Acute Qualifiers: Disc-related pain type: discogenic back pain and lower extremity pain Qualified Code(s): M51.362 - Other intervertebral disc degeneration, lumbar region with discogenic back pain and lower extremity pain Category: Medical Code(s): M51.369 - Other intervertebral disc degeneration, lumbar region without mention of lumbar back pain or lower extremity pain (2) Lumbar radiculopathy, chronic: Status: Acute Category: Medical Code(s): M54.16 - Radiculopathy, lumbar region Plan Patient continues to do well overall with his stimulator and does not need any additional adjustment today. I did counselling psychologist the patient when he comes in for his next visit if he does feel like he could use additional reprogramming to give us a little bit of a heads up and that we can coordinate with [employer] to be present at his follow-up. Patient will return to clinic in 6 months for reev aluation of symptoms and plan of care. Patient has been instructed to contact the clinic with any concerns before the next appointment. Dr. Marcelo has reviewed this note and agrees with this plan of care. This note was dictated using voice recognition software and make contain errors or omissions. All injections are used with Lidocaine, Bupivacaine and dexamethasone. Occasionally urine drug screen is needed to verify patient's compliance with our office pain contract. This is ordered based off specific treatments related to chronic pain with the potential to abuse certain medications.
[2024-12-18 09:05] VITALS: BP 137/73; PULSE 91; RESP 18; O2SAT 95; BMI 33.9
== END 2024-12-18 23:59 | disposition home or self-care (01) ==
LOC: SC.PAIN 08:27
PROVIDERS: PCP Family Medicine; Visit Provider Nurse Practitioner Family
DX: M51.16 Intervertebral disc disorders with radiculopathy, lumbar region (principal); F17.210 Nicotine dependence, cigarettes, uncomplicated
CPT/HCPCS: 99212; G0463

== ENCOUNTER 2024-12-27 11:07 | Outpatient (CLI) | payer MEDICARE, SELFPAY ==
[2024-12-27 18:32] LABS: Basophils % 0.5 % (0.1-2.0); Eosinophils # 0.1 Kmm3 (0.0-0.4); Eosinophils % 1.6 % (0.1-12.0); Hematocrit 46.7 % (42.0-52.0); Hemoglobin 15.7 g/dL (14.1-18.0); Lymphocytes # 2.2 K/mm3 (0.7-4.5); Lymphocytes % 28.2 % (10-50); Mean Corpuscular HGB Conc 33.6 g/dL (31.8-35.4); Mean Corpuscular Hemoglobin 32.4 pg (27.0-31.2); Mean Corpuscular Volume 96.5 fl (80-94); Mean Platelet Volume 10.2 fl (7.4-10.4); Monocytes # 0.5 K/mm3 (0.1-1.0); Monocytes % 6.2 % (1.7-9.3); Neutrophils # 4.9 K/mm3 (1.8-7.8); Neutrophils % 63.2 % (37.0-80.0); Nucleated Red Blood Cells # 0 10^3/uL; Nucleated Red Blood Cells % 0 %; Platelet Count 241 K/mm3 (142-424); Red Blood Count 4.84 M/mm3 (4.60-6.20); Red Cell Distribution Width 13.2 % (11.5-17.5); Red Cell Distribution Width-SD 47.5 fL; White Blood Count 7.7 K/mm3 (4.8-10.8)
[2024-12-27 19:11] LABS: Alanine Aminotransferase 37 U/L (12-78); Albumin Level 4.5 g/dl (3.5-5.0); Albumin/Globulin Ratio 1.4 (1.1-1.8); Alkaline Phosphatase 93 U/L (38-126); Anion Gap 12.7 mEq/L (5-15); Aspartate Amino Transferase 33 U/L (17-59); Bilirubin,Total 0.7 mg/dl (0.2-1.3); Blood Urea Nitrogen 11 mg/dl (9-20); Calcium 9.5 mg/dl (8.4-10.2); Carbon Dioxide 27 mmol/L (22.0-30.0); Chloride 105 mmol/L (98-107); Chol/HDL Ratio 3.2 (1-3.5); Cholesterol 141 mg/dl (140-200); Estimated Glomerular Filt Rate 96 ml/min (>60); GFR (African American) 116 ML/MIN (>60); Globulin 3.2 g/dL (1.3-3.2); Glucose 106 mg/dl (74-100); HDL Cholesterol 44 mg/dl (40-60); Potassium 4.7 mmoL/L (3.5-5.1); Sodium 140 mmol/L (136-145); Total Protein,Serum 7.7 g/dl (6.3-8.2); Triglycerides 84 mg/dl (30-150); VLDL Cholesterol 17 mg/dL (0-40)
[2024-12-27 19:42] LABS: Prostate Specific Ag Screen 0.2 ng/ml (0.0-4.0)
[2024-12-27 20:00] LABS: Vitamin B12 608 pg/mL (239-931)
[2024-12-27 20:04] LABS: HIV Combo NEGATIVE (Negative)
[2024-12-27 20:09] LABS: Hemoglobin A1C 5.8 % (4.0-6.0)
[2024-12-27 20:12] LABS: Hepatitis C Ab Qual. W/ RFX NEGATIVE (Negative)
[2024-12-27 20:23] LABS: Folate > 20.00 ng/mL
== END 2024-12-27 23:59 | disposition home or self-care (01) ==
LOC: LAB.DROPOF 12-30 11:07
PROVIDERS: PCP Family Medicine; Visit Provider Family Medicine
DX: Z12.5 Encounter for screening for malignant neoplasm of prostate (principal); Z11.59 Encounter for screening for other viral diseases; I10 Essential (primary) hypertension; E11.9 Type 2 diabetes mellitus without complications; E56.9 Vitamin deficiency, unspecified; E78.5 Hyperlipidemia, unspecified; D75.89 Other specified diseases of blood and blood-forming organs; F17.210 Nicotine dependence, cigarettes, uncomplicated; Z68.34 Body mass index [BMI] 34.0-34.9, adult; E66.9 Obesity, unspecified
CPT/HCPCS: 80053; 80061; 82607; 82746; 83036; 85025; 86803; 87389; G0103

== ENCOUNTER 2025-06-30 07:44 | Outpatient (CLI) | payer MEDICARE, SELFPAY ==
[2025-06-30 16:57] LABS: Albumin Level 4.6 g/dl (3.5-5.0); Albumin/Globulin Ratio 1.5 (1.1-1.8); Chloride 102 mmol/L (98-107); Cholesterol 81 mg/dl (140-200); Globulin 3.1 g/dL (1.3-3.2); Glucose 117 mg/dl (74-100); Potassium 4.6 mmoL/L (3.5-5.1); Sodium 136 mmol/L (136-145); Total Protein,Serum 7.7 g/dl (6.3-8.2); Triglycerides 81 mg/dl (30-150)
[2025-06-30 16:58] LABS: Alanine Aminotransferase 35 U/L (12-78); Alkaline Phosphatase 104 U/L (38-126); Anion Gap 13.6 mEq/L (5-15); Aspartate Amino Transferase 29 U/L (17-59); Bilirubin,Total 0.7 mg/dl (0.2-1.3); Blood Urea Nitrogen 10 mg/dl (9-20); Calcium 9.4 mg/dl (8.4-10.2); Carbon Dioxide 25 mmol/L (22.0-30.0); Creatinine,Serum 0.80 mg/dl (0.66-1.25); Estimated Glomerular Filt Rate 96 ml/min (>60); GFR (African American) 116 ML/MIN (>60); HDL Cholesterol 44 mg/dl (40-60)
[2025-06-30 19:00] LABS: Hemoglobin A1C 5.9 % (4.0-6.0)
--- OUTSIDE RECORDS SUMMARY | 2025-07-02 07:46 | XMS_ITS | Encounter Summary ---
Author Organization [employer] ([place], [place], [place], [place], [place]) Address [address] [place] [address] Care Team Providers Care Stone Cleaner Name Role Phone Unavailable Primary Care Provider Unavailabl e Encounter Details Date Type Department Care Team (Late st Contact Info) Description 08/13/2021 Transcribed Document [facility] [place] [facility] [place] [facility] [place] [address] ProviderYari MD [address] [place] [id number] Social History Tobacco Use Types Packs/Day Years Used Date Smoking Tobacco: Never Assessed Sex and Gender Information Value Date Recorded Sex Assigned at Male 02/22/2022 5:28 PM CDT Legal Sex Male 5:28 PM CDT Gender Identity Male 02/22/2022 5:28 PM CDT Sexual Orientation Not on file documented as of this encounter Miscellaneous Notes * Cerner Conversion Note - Yari ProviderMD - 08/13/2021 10:32 AM DRIVER'S LICENSE EXAMINER [facility] Main OR IntraOp Summary Primary Physician: RO GERARDO MD Finalized Date/Time: 08/16/21 09:24:20 Pt. Name: CARLOS RENAE./Sex: 1955 Male Med Rec #: [id number] Physician: RO GERARDO MD Financial #: [id number] Pt. Type: I Room/Bed: [facility]/1 Admit/Disch: 08/13/21 06:32:00 - 08/15/21 18:38:00 Institution: [facility] IntraOp Case Attendance Entry 1 Entry 2 Entry 3 Case Attendee MENES, RO, MD ALEJANDRAKYRA MARIN MD-ANS Davis, Rachel, CRNA Role Performed Surgeon/Proceduralist, Anesthesiologist of DRAWER LINER/Nurse Supervisor [employer] First Record Time In 08/13/21 09:58:00 08/13/21 09:58:00 08/13/21 09:58:00 Time Out 08/13/21 13:22:00 08/13/21 13:22:00 08/13/21 13:22:00 Procedure Femoral Artery Femoral Artery Femoral Artery Endarterectomy(Right) Endarterectomy(Right) Endarterectomy(Right) Other Attendee Superficial Wound Closed By: Last Modified By: Aron Junior, Aron Alejandre, Aron Alejandre RN 08/13/21 13:27:08 08/13/21 13:27:08 08/13/21 13:27:08 Entry 4 Entry 5 Entry 6 Case Attendee Hiral Gray, Brittanie Hannon, ANISA MARS Role Performed Site Physician, First Site Physician, Second Scrub, First Time In 08/13/21 09:58:00 08/13/21 09:58:00 08/13/21 09:58:00 Time Out 08/13/21 13:22:00 08/13/21 13:22:00 08/13/21 11:30:00 Procedure Femoral Artery Femoral Artery Femoral Artery Endarterectomy(Right) Endarterectomy(Right) Endarterectomy(Right) Other Attendee Orientee Superficial Wound Closed By: Last Modified By: Aron Junior RN Poff, Janie, Hiral Sanchez RN 08/13/21 13:27:08 08/13/21 10:43:52 08/13/21 11:51:16 Entry 7 Entry 8 Entry 9 Case Attendee OTHER, ATTENDEE #1 BALTAZAR FIGUEROA AMBER, PA Role Performed Church Official, Ancillary Scrub, First Physician child life assistant Time In 08/13/21 09:58:00 08/13/21 11:25:00 08/13/21 11:35:00 Time Out 08/13/21 13:22:00 08/13/21 13:22:00 08/13/21 12:25:00 Procedure Femoral Artery Femoral Artery Femoral Artery Endarterectomy(Right) Endarterectomy(Right) Endarterectomy(Right) Other Attendee Skip Villalba, Cell Saver Superficial Wound Closed By: Last Modified By: Hiral Gray RN Marshall, Pechie, RN Marshall, Pechie, RN 08/13/21 10:43:52 08/13/21 13:27:08 08/13/21 12:28:53 Entry 10 Entry 11 Entry 12 Case Attendee CAMDEN ERNST, NA Aron Junior, ROSE CASTAÑEDA PA Role Performed DRAWER LINER/Nurse Supervisor [employer] Site Physician, First Physician child life assistant Time In 08/13/21 11:42:00 08/13/21 11:50:00 08/13/21 12:38:00 Time Out 08/13/21 13:22:00 08/13/21 12:35:00 08/13/21 13:22:00 Procedure Femoral Artery Femoral Artery Femoral Artery Endarterectomy(Right) Endarterectomy(Right) Endarterectomy(Right) Other Attendee Superficial Wound Closed By: Last Modified By: Aron Junior RN Marshall, Pechie, RN Marshall, Pechie, RN 08/13/21 13:27:08 08/13/21 12:35:30 08/13/21 13:27:08 [facility] IntraOp Case Attendance Audit 08/13/21 13:27:08 Knitter Wire Mesh: [id number] Modifier: [id number] <+> Time Out 1 <*> Procedure Femoral Artery Endarterectomy(Right) 2 <+> Time Out 2 <*> Procedure Femoral Artery Endarterectomy(Right) 3 <+> Time Out 3 <*> Procedure Femoral Artery Endarterectomy(Right) 4 <+> Time Out 4 <*> Procedure Femoral Artery Endarterectomy(Right) 5 <+> Time Out 5 <*> Procedure Femoral Artery Endarterectomy(Right) 6 <*> Procedure Femoral Artery Endarterectomy(Right) 7 <+> Time Out 7 <*> Procedure Femoral Artery Endarterectomy(Right) 8 <+> Time Out 8 <*> Procedure Femoral Artery Endarterectomy(Right) 9 <*> Procedure Femoral Artery Endarterectomy(Right) 10 <+> Time Out 10 <*> Procedure Femoral Artery Endarterectomy(Right) 11 <*> Procedure Femoral Artery Endarterectomy(Right) 12 <+> Time Out 12 <*> Procedure Femoral Artery Endarterectomy(Right) 08/13/21 13:07:34 Knitter Wire Mesh: [id number] Modifier: [id number] 1 <*> Procedure Femoral Artery Endarterectomy(Right), Aortogram Abdominal with Runoff 2 <*> Procedure Femoral Artery Endarterectomy(Right), Aortogram Abdominal with Runoff 3 <*> Procedure Femoral Artery Endarterectomy(Right), Aortogram Abdominal with Runoff 4 <*> Procedure Femoral Artery Endarterectomy(Right), Aortogram Abdominal with Runoff 5 <*> Procedure Femoral Artery Endarterectomy(Right), Aortogram Abdominal with Runoff 6 <*> Procedure Femoral Artery Endarterectomy(Right), Aortogram Abdominal with Runoff 7 <*> Procedure Femoral Artery Endarterectomy(Right), Aortogram Abdominal with Runoff 8 <*> Procedure Femoral Artery Endarterectomy(Right), Aortogram Abdominal with Runoff 9 <*> Procedure Femoral Artery Endarterectomy(Right), Aortogram Abdominal with Runoff 10 <*> Procedure Femoral Artery Endarterectomy(Right), Aortogram Abdominal with Runoff 11 <*> Procedure Femoral Artery Endarterectomy(Right), Aortogram Abdominal with Runoff 12 <*> Procedure Femoral Artery Endarterectomy(Right), Aortogram Abdominal with Runoff 08/13/21 12:38:44 Knitter Wire Mesh: [id number] Modifier: [id number] <+> 12 Case Attendee <+> 12 Role Performed <+> 12 Time In <+> 12 Procedure 08/13/21 12:35:30 Knitter Wire Mesh: [id number] Modifier: [id number] <+> Time Out 11 <*> Procedure Femoral Artery Endarterectomy(Right), Aortogram Abdominal with Runoff 08/13/21 12:28:53 Knitter Wire Mesh: [email or web address] Modifier: [id number] <+> Time Out 9 <*> Procedure Femoral Artery Endarterectomy(Right), Aortogram Abdominal with Runoff 08/13/21 11:51:16 Knitter Wire Mesh: [email or web address] Modifier: [id number] [id number] <+> Time Out 6 <*> Procedure Femoral Artery Endarterectomy(Right), Aortogram Abdominal with Runoff <+> 10 Case Attendee <+> 10 Role Performed <+> 10 Time In <+> 10 Procedure <+> 11 Case Attendee <+> 11 Role Performed <+> 11 Time In <+> 11 Procedure 08/13/21 11:36:32 Knitter Wire Mesh: [email or web address] Modifier: [id number] <+> 9 Case Attendee <+> 9 Role Performed <+> 9 Time In <+> 9 Procedure 08/13/21 11:36:03 Knitter Wire Mesh: [email or web address] Modifier: [email or web address] 1 <*> Procedure Femoral Artery Endarterectomy(Right), Aortogram Abdominal with Runoff 2 <+> Time In 2 <*> Procedure Femoral Artery Endarterectomy(Right), Aortogram Abdominal with Runoff 3 <+> Time In 3 <*> Procedure Femoral Artery Endarterectomy(Right), Aortogram Abdominal with Runoff 4 <+> Time In 4 <*> Procedure Femoral Artery Endarterectomy(Right), Aortogram Abdominal with Runoff 5 <+> Time In 5 <*> Procedure Femoral Artery Endarterectomy(Right), Aortogram Abdominal with Runoff 6 <+> Time In 6 <*> Procedure Femoral Artery Endarterectomy(Right), Aortogram Abdominal with Runoff 7 <+> Time In 7 <*> Procedure Femoral Artery Endarterectomy(Right), Aortogram Abdominal with Runoff <+> 8 Case Attendee <+> 8 Role Performed <+> 8 Time In <+> 8 Procedure [facility] IntraOp Case Times Entry 1 Patient In Room Time 08/13/21 09:58:00 Out Room Time 08/13/21 13:22:00 Anesthesia Start Time 08/13/21 09:58:00 Stop Time 08/13/21 13:22:00 Surgery / Procedure Times Start Time 08/13/21 10:32:00 Stop Time 08/13/21 13:11:00 Last Modified By: Aron Junior RN 08/13/21 13:22:25 [facility] IntraOp Case Times Audit 08/13/21 13:22:48 Knitter Wire Mesh: [id number] Modifier: [id number] <+> 1 Out Room Time <+> 1 Stop Time 08/13/21 13:22:25 Knitter Wire Mesh: [email or web address] Modifier: [id number] <+> 1 Stop Time [facility] IntraOp Cautery Entry 1 ESU Identification Cautery Type Monopolar ESU ID Number [id number] ID Type Hospital Number Cautery Settings Cut Setting 30 Coag Setting 30 ESU Grounding Pad Ground Pad Type Adult Grounding Pad Site Left buttock Grounding Pad Brittanie Guzman RN Applied By Grounding Pad Site Warm, dry and intact Skin Condition Before Cautery Grounding Pad Site Unchanged Skin Condition After Cautery Last Modified By: Hiral Gray RN 08/13/21 10:50:17 [facility] IntraOp Cautery Audit 08/13/21 11:16:21 Knitter Wire Mesh: [email or web address] Modifier: [email or web address] <+> 1 ID Number [facility] IntraOp Communication Entry 1 Communication To Family/Significant other Comment PROCEDURE START Communication By Brittanie Guzman RN Date and Time 08/13/21 10:35:00 Last Modified By: Hiral Gray RN 08/13/21 10:52:42 [facility] IntraOp Counts Verification Entry 1 Entry 2 Entry 3 Procedure Femoral Artery Femoral Artery Femoral Artery Endarterectomy(Right) Endarterectomy(Right) Endarterectomy(Right) Count Info Count Type Sponge, Sharps, Sponge, Sharps, Sponge, Sharps, Miscellaneous Miscellaneous Miscellaneous Counts Verification Baseline/pre-procedure At time of permanent Before wound closure Sequence relief Count Results Not Applicable Correct, surgeon Correct, surgeon notified notified If Incorrect or Waived complete the Counts Action Taken form: If Intentional Retention, complete the Intential Retention form: Counts Performed By Count Performed By ANISA CHEW SANDRA R. WILLS, SANDRA R. (Scrub) Count Performed By Hiral Gray, Hrial Sanchez, Brittanie Hannon RN (RN) Last Modified By: Hiral Gray RN Poff, Janie, RN Marshall, Pechie, RN 08/13/21 10:49:16 08/13/21 11:37:57 08/13/21 13:03:34 [facility] IntraOp Counts Verification Audit 08/13/21 13:07:35 Knitter Wire Mesh: [id number] Modifier: [id number] 1 <*> Procedure Femoral Artery Endarterectomy(Right), Aortogram Abdominal with Runoff 2 <*> Procedure Femoral Artery Endarterectomy(Right), Aortogram Abdominal with Runoff 3 <*> Procedure Femoral Artery Endarterectomy(Right), Aortogram Abdominal with Runoff 08/13/21 13:03:34 Knitter Wire Mesh: [email or web address] Modifier: [id number] <+> 3 Procedure <+> 3 Count Type <+> 3 Counts Verification Sequence <+> 3 Count Results <+> 3 Count Performed By (Scrub) <+> 3 Count Performed By (RN) 08/13/21 11:37:57 Knitter Wire Mesh: [email or web address] Modifier: DEIDRA <+> 2 Procedure <+> 2 Count Type <+> 2 Counts Verification Sequence <+> 2 Count Results <+> 2 Count Performed By (Scrub) <+> 2 Count Performed By (RN) [facility] IntraOp Counts Final Entry 1 Procedure Femoral Artery Endarterectomy(Right) Final Count Info Count Type Sponge, Sharps, Miscellaneous Counts Verification Skin Closure/end of Sequence procedure Count Results Not Applicable Counts Performed By Count Performed By BALTAZAR FIGUEROA (Scrub) Count Performed By Hiral Gray RN (RN) Last Modified By: Hiral Gray RN 08/13/21 10:50:33 [facility] IntraOp Counts Final Audit 08/13/21 13:07:37 Knitter Wire Mesh: [id number] Modifier: [id number] 1 <*> Procedure Femoral Artery Endarterectomy(Right), Aortogram Abdominal with Runoff 08/13/21 13:03:49 Knitter Wire Mesh: DEIDRA Modifier: [id number] 1 <*> Procedure Femoral Artery Endarterectomy(Right), Aortogram Abdominal with Runoff 1 <+> Count Performed By (Scrub) 1 <+> Count Performed By (RN) [facility] IntraOp Cultures and Spec Summary Entry 1 Cultrures and Specimens Specimen Ordered: Yes Test(s) Routine/Path-Lab Requested/Final Disposition Last Modified By: Hiral Gray RN 08/13/21 11:11:35 [facility] IntraOp Departure from OR Entry 1 Integumentary Assessment Integumentary WDL with patient Assessment WDL specific variances Patient's Normal SURGICAL INCISION = Integumentary RIGHT GROIN, RIGHT LEG Variance(s) Transfer/Handoff Transfer to PACU Phase I Handoff Method Phone call Post-op Transport Stretcher/Gurney Via Patient Transport Romi Benitez CRNA, Accompanied by KYRA ROBERTS MD-RHEA, Hiral Gray RN Last Modified By: Hiral Gray RN 08/13/21 10:52:12 [facility] IntraOp Dressing and Packing Entry 1 Type Dressing Location RIGHT LEG Wound Dressing Item Skin Closure Glue, Other Applied By RO GERARDO MD Other Comments AQUACEL Last Modified By: Aron Junior RN 08/13/21 13:04:56 [facility] IntraOp Fire Risk Assessment Entry 1 Fire Info Surgical Site or 0- No Incision Above the Xyphoid Open O2 Source 0- No (Mask or Cannula) Available Ignition 1- Yes (ESU, Laser, Light Source) Fire Risk 1 Assessment Score Fire Score Fire Risk Yes Assessment Complete Fire Risk Brittanie Guzman RN Assessment Verified By Fire Risk 08/13/21 10:32:00 Assessment Verified Date/Time Fire Risk Standard Fire Yes Safety Precautions Followed Last Modified By: Hiral Gray RN 08/13/21 10:46:49 [facility] IntraOp General Case Mixed Signal Design Engineer 1 Case Information OR OR 07 [facility] Case Level 1 Room Verified Yes Wound Class 1 - Clean Specialty Vascular Anesthesia Type General ASA Class 3 Diagnosis Preop Diagnosis RIGHT LOWER EXTREMITY CLAUDICATION, RIGHT FEMORAL ARTERY OCCLUSION Postop Same As Preop No Postop Diagnosis SEE MD NOTE Wound Class Definitions Last Modified By: Hiral Gray RN 08/13/21 10:49:48 [facility] IntraOp General Case Data Audit 08/13/21 12:59:01 Knitter Wire Mesh: [id number] Modifier: [id number] 1 <*> Preop Diagnosis RIGHT LOWER EXTREMITY CLAUDICATION, RIGHT FEMORAL ARTERY OCCLUSION 08/13/21 11:56:32 Knitter Wire Mesh: POFFJAN Modifier: [id number] <+> 1 Postop Same As Preop <+> 1 Preop Diagnosis <+> 1 Postop Diagnosis [facility] IntraOp Implant Log Entry 1 Entry 2 Type Tissue Implant Implant (Synthetic) (Biologic) Implant Log Implant Type Grafts, non-biological Tissue Implant Type Other Implant [facility] [employer] EPTFE-HEPARIN RNG Identification [id number] Description Implant Quantity 1 1 Implant Site RIGHT FEMORAL ARTERY OPERATIVE SITE Implant Identification Model Number Implant [id number] Identification Serial Number Implant [id number] Identification Lot Number Implant [facility] [employer]:Med Prdt Identification Automated Access Systems Technician Name: Implant [id number] Identification Catalog Number Implant Size Implant Has an Yes Yes Expiration Date Implant Expiration 09/24/25 02/06/25 Date Wasted Radioactive Material Time Implanted Tissue Implant Continue for Tissue Implant Documentation Tissue Identification Number Graft Prep Per Yes Automated Access Systems Technician Instructions: Tissue Preparation N/A Method: Reconstitution Solution: Reconstitution Solution Lot Number Reconstitution Solution Expiration Date: Thawing Solution Thawing Solution Lot Number Thawing Solution Expiration Date Preparation Materials, Other Preparation Materials, Other Lot Number Preparation Materials, Other Expiration Date ANISA Bhat Prepared/Processed By Automated Access Systems Technician Yes Paperwork Completed Implant Type Comment Last Modified By: Hiral Gray RN Poff, Janie, RN 08/13/21 11:21:10 08/13/21 11:33:21 [facility] IntraOp Implant Log Audit 08/13/21 11:33:21 Knitter Wire Mesh: [email or web address] Modifier: DEIDRA <+> 2 Implant Identification Description <+> 2 Implant Identification Serial Number <+> 2 Implant Identification Automated Access Systems Technician Name: <+> 2 Implant Expiration Date <+> 2 Implant Site <+> 2 Implant Quantity <+> 2 Implant Identification Catalog Number <+> 2 Implant Type <+> 2 Implant Has an Expiration Date <+> 2 Type [facility] IntraOp Intraoperative Assessment Entry 1 Handoff Method Online nursing summary Valid History / Yes Physical in Chart Preoperative Yes Checklist Reviewed/Evaluated Allergies Reviewed Yes Patient is Latex No Sensitive Isolation Not applicable Precautions Noted Level of WDL Consciousness (WDL = Alert, Oriented to Person, Place, and Time) Skin Assessment Yes Verified Present Upon IVs, Arterial line, Arrival to OR Oxygen Prosthetic/Assistive Stimulator Devices Intraoperative SPINAL CORD STIMULATOR Assessment Comment Last Modified By: Hiral Gray RN 08/13/21 10:48:24 [facility] IntraOp Intraoperative Equipment Entry 1 Type Monitoring Equipment Equipment Waste Management System ID Number [id number] Intraop Monitoring Electrocardiogram Five lead placement (ECG) Electrode Placement Blood Pressure Arterial Pressure Line Source Blood Pressure Arterial Location Antiembolic Devices Scopes Photo/Video Documentation Photo No Video No Last Modified By: Hiral Gray RN 08/13/21 10:57:41 [facility] IntraOp Intraoperative Equipment Audit 08/13/21 11:17:08 Knitter Wire Mesh: DEIDRA Modifier: DEIDRA 1 <+> ID Number 1 <-> Antiembolic Devices Sequential compression device, knee high 1 <-> Antiembolic Device Location Bilateral [facility] IntraOp Medication Admin Entry 1 Entry 2 Entry 3 Medication/Irrigant TIFFANY IRR NACL 0.9PCT HEMSTAS MPH ABSORB HEMO HEMOSTAT SURGICEL SNOW 1.5L [id number] Combo Med List Time Administered Route of IRRIGATION TOPICAL, ON OPERATIVE TOPICAL, ON OPERATIVE Administration SITE SITE Dose Dose 3 1 Unit of Measure gram pkt Volume Administered By RO GERARDO MD MENES, KEITH, MD MENES, KEITH, MD Procedure Irrigation Irrigant Volume In Irrigant Volume Out Last Modified By: Hiral Gray RN Marshall, Pechie, RN Marshall, Pechie, RN 08/13/21 11:04:52 08/13/21 12:53:43 08/13/21 12:53:43 [facility] IntraOp Medication Admin Audit 08/13/21 12:53:43 Knitter Wire Mesh: DEIDRA Modifier: [id number] <+> 2 Medication/Irrigant <+> 2 Route of Administration <+> 2 Administered By <+> 2 Dose <+> 2 Unit of Measure <+> 3 Medication/Irrigant <+> 3 Route of Administration <+> 3 Administered By <+> 3 Dose <+> 3 Unit of Measure [facility] IntraOp Patient Positioning Entry 1 Procedure Femoral Artery Endarterectomy(Right) Body Position Supine Left Arm Position Secured on padded arm board Right Arm Position Secured on padded arm board Left Leg Position Uncrossed, parallel Right Leg Position Uncrossed, parallel Feet Uncrossed Yes Pressure Points Yes Checked Positioning Devices Head Rest, Arm Board, Arm Board, Pad, Elbow, Pad, Elbow, Safety Strap, Chest, Pad (Other), Pad, Heel Pad/Roll Location Left heel, under left thigh Positioned By Hiral Gray RN, RO GERARDO MD, Romi Benitez CRNA, Brittanie Guzman RN Position Verified Positioning Yes Verified by Anesthesia Positioning Yes Verified by Surgeon Last Modified By: Hiral Gray RN 08/13/21 10:45:52 [facility] IntraOp Patient Positioning Audit 08/13/21 13:07:35 Knitter Wire Mesh: DEIDRA Modifier: [id number] 1 <*> Procedure Femoral Artery Endarterectomy(Right), Aortogram Abdominal with Runoff [facility] IntraOp Sign In Entry 1 Patient, Site, Yes Procedure Identified Surgical Consent Yes Confirmed Relevant Surgical Yes Documents Available Surgical Site Yes Marked by person performing procedure Anesthesia Machine Yes Check Completed Medication Checks Yes Completed Allergies Yes Airway Difficult Yes Airway/Aspiration Risk Difficult Yes Airway/Aspiration Intervention Equipment Available Blood Loss Risk Yes Blood Loss Yes Intervention Equipment Prepared and Ready Blood Identifiers Yes Verified Per Policy Hypothermia Risk Yes Warming Measures Yes Taken Last Modified By: Hiral Gray RN 08/13/21 10:41:05 [facility] IntraOp Sign Out Entry 1 RN Confirmation Surgical Yes Procedure(s) Identified Instrument, Sponge Yes and Sharps Counts Correct/Documented Equipment Problems N/A Documented Specimen Labeled Yes Correctly Urinary Catheter Yes Documented in IView Wound Yes classification reviewed, verified and updated post case in both the General Case Data and Procedure segments Garcia Patient Yes Recovery Concerns Reviewed with Anesthesia Provider, Surgeon and RN Garcia Patient Yes Management Concerns Reviewed with Anesthesia Provider, Surgeon and RN Safety Checklist Yes Elements Complete? RN Sign Out Hiral Gray RN Signature RN Sign Out 08/13/21 13:22:00 Signature Date/Time Plan of Care Outcome - Fire Risk OUTCOME STATEMENT: Goal met Patient is free from injury related to surgical fire Plan of Care Outcome - Pt Positioning OUTCOME STATEMENT: Goal met Absence of signs and symptoms of positioning injury. Plan of Care Outcome - Skin Prep OUTCOME STATEMENT: Goal met Intraoperative care is consistent with measures to prevent infection Plan of Care Outcome - Xray/Images OUTCOME STATEMENT: Goal met Absence of observable signs or symptoms of radiation injury Plan of Care Outcome - Counts OUTCOME STATEMENT: Goal met Absence of signs and symptoms of injury related to extraneous objects Last Modified By: Hiral Gray RN 08/13/21 11:05:13 [facility] IntraOp Sign Out Audit 08/13/21 13:22:38 Knitter Wire Mesh: [email or web address] Modifier: [id number] <+> 1 RN Sign Out Signature Date/Time [facility] IntraOp Skin Prep Entry 1 Procedure Femoral Artery Endarterectomy(Right) Prescribed Yes Pre-Surgical Prep Completed Prep Area ABDOMEN TO TOES OF RIGHT FOOT, LEFT GROIN TO LEFT KNEE Intraop Prep Integumentary WDL Assessment WDL Prep Agents Chloraprep Prep by RO GERARDO MD Hair Removal Methods Clipper/Scissors Hair Removal Site RIGHT GROIN, RIGHT LEG Hair Removal By RO GERARDO MD Last Modified By: Hiral Gray RN 08/13/21 11:06:41 [facility] IntraOp Skin Prep Audit 08/13/21 13:07:36 Knitter Wire Mesh: DEIDRA Modifier: [id number] 1 <*> Procedure Femoral Artery Endarterectomy(Right), Aortogram Abdominal with Runoff [facility] IntraOp Surgical Procedures Entry 1 Procedure Femoral Artery Endarterectomy Modifiers Right Additional RIGHT COMMON FEMORAL Procedure ENDARTERECTOMY, COMMON Description FEMORAL ARTERY TO BELOW KNEE POPLITEAL Primary Procedure Yes Primary Surgeon RO GERARDO MD Start 08/13/21 10:32:00 Stop 08/13/21 13:11:00 Anesthesia Type General Specialty Vascular Wound Class 1 - Clean Last Modified By: Hiral Gray RN 08/13/21 10:46:31 [facility] IntraOp Surgical Procedures Audit 08/13/21 13:22:29 Knitter Wire Mesh: [id number] Modifier: [id number] <+> 1 Stop 08/13/21 13:07:49 Knitter Wire Mesh: DEIDRA Modifier: [id number] 1 <*> Procedure Femoral Artery Endarterectomy 1 <*> Primary Procedure Yes 1 <*> Modifiers Right 1 <*> Primary Surgeon RO GERARDO MD 1 <*> Specialty 1 <*> Start 08/13/21 10:32:00 1 <*> Wound Class 1 - Clean 1 <*> Anesthesia Type General 1 <*> Additional Procedure Description RIGHT COMMON FEMORAL ENDARTERECTOMY, COMMON FEMORAL ARTERY TO BELOW KNEE POPLITEAL Entry 2 was deleted. Higher numbered entries shifted one position to fill the gap. <-> 2 Procedure Aortogram Abdominal with Runoff <-> 2 Primary Procedure No <-> 2 Primary Surgeon RO GERARDO MD <-> 2 Start 08/13/21 10:32:00 <-> 2 Anesthesia Type General [facility] IntraOp Temp Regulation Devices Entry 1 Temp Regulation Temperature Forced Air Warming Regulation Device device Temperature 96471 Regulation Device Serial/Unit Number Temperature Upper body Regulation Site Temperature Romi Benitez CRNA Regulation Device Applied by Last Modified By: Hiral Gray RN 08/13/21 11:07:23 [facility] IntraOP Time Out Entry 1 Procedure to be Femoral Artery Performed Endarterectomy(Right) Time Out Time Out Pause Time 08/13/21 10:32:00 All activity Yes suspended (unless life threatening emergency) Team Verbally Correct patient Confirms Information identity, Correct side and site are marked, Consent form is present and accurate, Agreement on the procedure to be done, Correct patient position, Relevant images/results properly labeled/appropriately displayed, Confirm antibiotics have been administered, Confirm the skin prep has dried, Confirm prosthesis/implant/devic e is present, Performed in location of procedure after prepped/draped Antibiotic Yes Prophylaxis Administered Or In Progress Within the Last 60 Minutes Beta Isaak N/A Administered Venous N/A Thromboembolism Prophylaxis Required Anticipated Critical Events Surgeon None expected Anesthesia Provider None expected Nursing Assures Sterility of instruments, Implant Availability Essential Imaging Yes Labeled and Displayed Last Modified By: Aron Junior RN 08/13/21 13:07:36 [facility] IntraOP Time Out Audit 08/13/21 13:07:36 Knitter Wire Mesh: [id number] Modifier: [id number] <*> Procedure to be Performed Femoral Artery Endarterectomy(Right), Aortogram Abdominal with Runoff Case Comments <None> Finalized By: ADAL ORTIZ Document Signatures Signed By: Aron Junior RN 08/13/21 13:27 ADAL ORTIZ 08/16/21 09:24 Unfinalized History Date/Time Username Reason for Unfinalizing Freetext Reason for Unfinalizing 08/16/21 09:19 [id number] Correct Billing Electronically signed by Sergio [facility] Conversion Chief Technical Officer Cerner at 12/13/2022 9:40 AM CDT documented in this encounter Plan of Treatment Not on file documented as of this encounter Visit Diagnoses Not on filedocumented in this encounter
--- OUTSIDE RECORDS SUMMARY | 2025-07-02 07:46 | XMS_ITS | Encounter Summary ---
Author Organization [facility] ([place], [place], [place], [place], [place]) Address [address] [place] [address] Care Team Providers Care Avionics Technician Name Role Phone Unavailable Primary Care Provider Unavailabl e Encounter Details Date Type Department Care Team (Late st Contact Info) Description 08/14/2021 Transcribed Document [facility] [place] Medicine [facility] [place] [address] ProviderYari MD [address] [place], [place] [id number] Social History Tobacco Use Types Packs/Day Years Used Date Smoking Tobacco: Never Assessed Sex and Gender Information Value Date Recorded Sex Assigned at Male 02/22/2022 5:28 PM CDT Legal Sex Male 5:28 PM CDT Gender Identity Male 02/22/2022 5:28 PM CDT Sexual Orientation Not on file documented as of this encounter Miscellaneous Notes * [employer]ner Conversion Note - Historical ProviderMD - 08/14/2021 9:00 AM DONOR RELATIONS MANAGER Pain Assessment Entered On: 08/14/2021 13:30 EST Performed On: 08/14/2021 10:01 EST by MRAGARITA TEJADA CNA Intervention Information: celecoxib Performed by MARGARITA TEJADA CNA on 08/14/2021 09:01:00 EST celecoxib,200mg Oral Pain Assessment Pain Assessment : Follow-up assessment Pain Scale Goal : 5 Pain Improved by Intervention : Yes MARGARITA TEJADA CNA - 08/14/2021 13:29 EST documented in this encounter Plan of Treatment Not on file documented as of this encounter Visit Diagnoses Not on filedocumented in this encounter
--- OUTSIDE RECORDS SUMMARY | 2025-07-02 07:46 | XMS_ITS | Encounter Summary ---
Author Organization [employer] ([place], [place], [place], [place], [place]) Address [address] [place] [address] Care Team Providers Care Abnormal Psychology Teacher Name Role Phone Unavailable Primary Care Provider Unavailabl e Encounter Details Date Type Department Care Team (Late st Contact Info) Description 08/14/2021 Transcribed Document [facility] [place] [facility] [place] [address] ProviderYari MD [address], [place] [id number] Social History Tobacco Use Types Packs/Day Years Used Date Smoking Tobacco: Never Assessed Sex and Gender Information Value Date Recorded Sex Assigned at Male 02/22/2022 5:28 PM CDT Legal Sex Male 5:28 PM CDT Gender Identity Male 02/22/2022 5:28 PM CDT Sexual Orientation Not on file documented as of this encounter Miscellaneous Notes * [employer]ner Conversion Note - Historical ProviderMD - 08/14/2021 1:54 PM FINAL ASSEMBLER BOAT UM Authorization Entered On: 08/14/2021 13:55 EST Performed On: 08/14/2021 13:54 EST by Candace Albrecht Rn-Utilization Review Primary Insurance Authorization Authorization and Policy Numbers : Insurance 1 Health Plan: [employer] PPO Policy Number: [id number] Authorization Number: [id number] Insurance Primary Name : [employer] PPO Policy Number: [id number] Authorization Status-Primary : Admit approved Reference Number-Primary : [employer] PPO Policy Number: [id number] Authorized Service Begin Date-Primary : 08/13/2021 EST Authorization Comments-Primary : Per Availity, approved inpatient Historical Authorization Comments-Primary : No Authorization Comments Found Candace Albrecht Rn-Utilization Review - 08/14/2021 13:54 EST Electronically signed by [facility] Conversion Quarantine Inspector Cerner at 12/13/2022 9:16 AM CDT documented in this encounter Plan of Treatment Not on file documented as of this encounter Visit Diagnoses Not on filedocumented in this encounter
--- OUTSIDE RECORDS SUMMARY | 2025-07-02 07:46 | XMS_ITS | Clinical Summary ---
Author Organization [facility] Address [address] [place] [address] Care Team Providers Care Shell Molder Name Role Phone Fortunato Vasquez DO Primary Care Provider [phone] Allergies No known active allergies Medications amLODIPine (NORVASC) 10 MG tablet Take 1 tablet by mouth Daily. 02/14/2024 Active atorvastatin (LIPITOR) 80 MG tablet Take 1 tablet by mouth Daily. 02/20/2024 Active busPIRone (BUSPAR) 15 MG tablet Take 1 tablet by mouth 3 (Three) Times a Day. 02/02/2024 Active celecoxib (CeleBREX) 200 MG capsule Take 1 capsule by mouth 2 (Two) Times a Day. 01/29/2016 Active clopidogrel (PLAVIX) 75 MG tablet Take 1 tablet by mouth Daily. 02/26/2024 Active cyclobenzaprine (FLEXERIL) 10 MG tablet Take 1 tablet by mouth 3 (Three) Times a Day As Needed. 02/14/2024 Active escitalopram (LEXAPRO) 20 MG tablet Take 1 tablet by mouth Daily. 05/12/2000 Active fluticasone (FLONASE) 50 MCG/ACT nasal spray 2 sprays into the nostril(s) as directed by provider Daily. 04/13/2012 Active gabapentin (NEURONTIN) 300 MG capsule Take 1 capsule by mouth 3 (Three) Times a Day. 02/26/2024 Active metoprolol succinate XL (TOPROL-XL) 25 MG 24 hr tablet Take 1 tablet by mouth Daily. 01/30/2024 Active moexipril (UNIVASC) 15 MG tablet Take 2 tablets by mouth Daily. 10/11/2019 Active omeprazole (priLOSEC) 20 MG capsule Take 1 capsule by mouth Daily. 07/05/2019 Active oxyCODONE (ROXICODONE) 15 MG immediate release tablet Take 1 tablet by mouth 3 (Three) Times a Day. 02/26/2024 Active tamsulosin (FLOMAX) 0.4 MG capsule 24 hr capsule Take 1 capsule by mouth Daily. 03/05/2010 Active aspirin 81 MG oral suspension Take 81 mL by mouth Daily. 08/07/2020 Active FEXOFENADINE HCL PO Take 180 mg by mouth Daily. 09/06/2019 Active Apple Cider Vinegar 500 MG tablet Take 500 mg by mouth Daily. 04/13/2018 Active guaiFENesin (MUCINEX) 600 MG 12 hr tablet Take 1 tablet by mouth 2 (Two) Times a Day. 07/03/2020 Active docusate sodium (COLACE) 50 MG capsule Take 1 capsule by mouth Daily. Active Active Problems Problem Noted Date Diagnosed Date Coronary artery disease Family History Medical History Relation Name Comments Alzheimer's disease Father Hypertension Mother Stroke Mother Relation Name Status Comments Father Mother Alive Social History Tobacco Use Types Packs/Day Years Used Date Smoking Tobacco: Every Day Cigarettes Smokeless Tobacco: Never Tobacco Cessation:Ready to Q uit: Not Asked; Counseling Given: Not Answered Alcohol Use Standard Drinks/Week Comments Yes 0 (1 standard drink = 0.6 oz pur e alcohol) 1 glass of wine daily Abuse Screen Answer Date Recorded Unsafe at Home or Work/School Not on file Feels Threatened by Someone? Not on file Does Anyone Keep You from Co ntacting Others or Doint Things Outside the Home? Not on file 03/12/2024 Physical Sign of Abuse Present Not on file 0 03/12/2024 Housing Stability Answer Date Recorded Current Living Arrangements Not on file 02/25 Potentially Unsafe Housing Conditions Not on carolin e 03/12/2024 Family and Community Support Answer Jose e Recorded Help with Day-to-Day Activities Not on file 03/12/2024 Lonely or Isolated Not on file 03/12/2024 Employment Answer Date Recorded Do you want help finding or keeping work or a ally b? Not on file 03/12/2024 Disabilities Answer Date Recorded Concentrating, Remembering, or Making Decisions Difficulty Not on file 03/12/2024 Doing Errands Independently Difficulty Not on fi le 03/12/2024 Education Answer Date Recorded Help with school or training? Not on file Preferred Language Not on file 03/12/2024 Sex and Gender Information Value Date Recorded Sex Assigned at Not on file Legal Sex Male 3:41 PM EDT Gender Identity Not on file Sexual Orientation Not on file Occupation Industry Job Start Date Job End Date retired [employer] Not on file Not o n file Not on file Last Filed Vital Signs Vital Sign Reading Time Taken Comments Blood Pressure 127/82 03/21/2024 12:27 PM EDT Pulse 98 03/21/2024 12:26 PM EDT Temperature 36.3 C (97.3 F) 03/21/2024 12:26 PM EDT Respiratory Rate - - Oxygen Saturation 96% 03/21/2024 12: 26 PM EDT Inhaled Oxygen Concentration - - Weight 91.6 kg (202 lb) 03/21/2024 12:2 6 PM EDT Height 167.6 cm (5' 6 ) 03/21/2024 12:2 6 PM EDT patient reports Body Mass Index 32.6 03/21/2024 12:26 PM EDT Plan of Treatment Health Maintenance Due Date Last Done Comments Pneumococcal Vaccine 50+ (1 of 2 - PCV) 1975 COLOGUARD 2001 COLON CANCER SCREENING 5 YEA R SIGMOIDOSCOPY 2001 COLONOSCOPY 2001 [address] CANCER SCREENING 2001 CT COLONOGRAPHY 2001 FECAL OCCULT BLOOD TEST 2001 FIT Testing (1 year) 2001 ZOSTER VACCINE (1 of 2) 2006 TDAP/TD VACCINES (2 - Tdap) 10/29/2006 10/29/1996 ANNUAL WELLNESS VISIT 03/21/2024 HEPATITIS C SCREENING 03/21/2024 INFLUENZA VACCINE 03/28/2025 06/12/2023, , 06/29/2020 COVID-19 Vaccine (5 - 2024-2 6 season) 2025 06/02/2022, 11/29/2021, 07/02/2021, Additional history exists AAA SCREEN ONCE Completed 07/05/2021 Insurance BECCA SIMMONS [id number] [facility] Medicare [employer] PPO Care Teams Shell Molder Relationship Specialty Start Date End Date Fortunato Vasquez DO [address] [place] [address] BECCA PEREIRA [id number] PCP - General Internal Medicine 03/12/24
--- OUTSIDE RECORDS SUMMARY | 2025-07-02 07:46 | XMS_ITS | Encounter Summary ---
Author Organization [employer] ([place], [place], [place], [place], [place]) Address [address] [place] [address] Care Team Providers Care Print Cutter Name Role Phone Unavailable Primary Care Provider Unavailabl e Encounter Details Date Type Department Care Team (Late st Contact Info) Description 08/14/2021 Transcribed Document [facility] [place] Family Medicine [facility] [place] [address] ProviderYari MD [address] [place] [address] Social History Tobacco Use Types Packs/Day Years Used Date Smoking Tobacco: Never Assessed Sex and Gender Information Value Date Recorded Sex Assigned at Male 02/22/2022 5:28 PM CDT Legal Sex Male 5:28 PM CDT Gender Identity Male 02/22/2022 5:28 PM CDT Sexual Orientation Not on file documented as of this encounter Miscellaneous Notes * [employer] Conversion Note - Historical ProviderMD - 08/14/2021 2:00 AM OSD CLERK Seed Core Operator Details Entered On: 08/14/2021 1:50 EST Performed On: 08/14/2021 2:00 EST by Joanie Boyd Non Emp Traveler RN Order Details Order Detail : N/A Patient Needs Meds Crushed/Liquid : No Joanie Boyd Non Emp Traveler RN - 08/14/2021 1:50 EST documented in this encounter Plan of Treatment Not on file documented as of this encounter Visit Diagnoses Not on filedocumented in this encounter
--- OUTSIDE RECORDS SUMMARY | 2025-07-02 07:46 | XMS_ITS | Encounter Summary ---
Author Organization [employer] ([place], [place], [place], [place], [place]) Address [address] [place] [address] Care Team Providers Care Nursing Teacher Name Role Phone Unavailable Primary Care Provider Unavailabl e Encounter Details Date Type Department Care Team (Late st Contact Info) Description 08/14/2021 Transcribed Document [facility] [place] Medicine [facility] [place] [address] ProviderYari MD [address] [id number] Social History Tobacco Use Types Packs/Day Years Used Date Smoking Tobacco: Never Assessed Sex and Gender Information Value Date Recorded Sex Assigned at Male 02/22/2022 5:28 PM CDT Legal Sex Male 5:28 PM CDT Gender Identity Male 02/22/2022 5:28 PM CDT Sexual Orientation Not on file documented as of this encounter Miscellaneous Notes * Cerner Conversion Note - Historical ProviderMD - 08/14/2021 5:00 AM CERAMIC TILER Chart Check - Review Order Profile Entered On: 08/14/2021 6:02 EST Performed On: 08/14/2021 5:00 EST by Joanie Boyd Non Emp Traveler RN Chart Check Powerplans Initiated/Discontinued as Appropriate : Yes All Active Orders Reviewed : Yes Joanie Boyd Non Emp Traveler RN - 08/14/2021 6:02 EST documented in this encounter Plan of Treatment Not on file documented as of this encounter Visit Diagnoses Not on filedocumented in this encounter
--- OUTSIDE RECORDS SUMMARY | 2025-07-02 07:46 | XMS_ITS | Encounter Summary ---
Author Organization [employer] ([place], [place], [place], [place], [place]) Address [address] [place] [address] Care Team Providers Care Traffic Coordinator Name Role Phone Unavailable Primary Care Provider Unavailabl e Encounter Details Date Type Department Care Team (Late st Contact Info) Description 08/14/2021 Transcribed Document [facility] [place] [facility] [place] [address] ProviderYari MD [address] [place] [address] Social History Tobacco Use Types Packs/Day Years Used Date Smoking Tobacco: Never Assessed Sex and Gender Information Value Date Recorded Sex Assigned at Male 02/22/2022 5:28 PM CDT Legal Sex Male 5:28 PM CDT Gender Identity Male 02/22/2022 5:28 PM CDT Sexual Orientation Not on file documented as of this encounter Miscellaneous Notes * [employer] Conversion Note - Historical ProviderMD - 08/14/2021 12:32 PM COMMERCIAL PROJECT MANAGER Pain Assessment Entered On: 08/14/2021 20:33 EST Performed On: 08/14/2021 17:39 EST by MARGARITA TEJADA CNA Intervention Information: oxyCODONE Performed by MARGARITA TEJADA CNA on 08/14/2021 16:39:00 EST oxyCODONE,15mg Oral,Pain (Moderate 4-6) Pain Assessment Pain Assessment : Follow-up assessment Pain Scale Goal : 3 Pain Improved by Intervention : Yes MARGARITA TEJADA CNA - 08/14/2021 20:33 EST documented in this encounter Plan of Treatment Not on file documented as of this encounter Visit Diagnoses Not on filedocumented in this encounter
--- OUTSIDE RECORDS SUMMARY | 2025-07-02 07:46 | XMS_ITS | Encounter Summary ---
Author Organization [employer] ([place], [place], [place], [place], [place]) Address [address] [place] [address] Care Team Providers Care Electronic Plotting System Operator Name Role Phone Unavailable Primary Care Provider Unavailabl e Encounter Details Date Type Department Care Team (Late st Contact Info) Description 08/14/2021 Transcribed Document [facility] [place] [facility] [place] [address] ProviderYari MD [address] [place] [address] Social History Tobacco Use Types Packs/Day Years Used Date Smoking Tobacco: Never Assessed Sex and Gender Information Value Date Recorded Sex Assigned at Male 02/22/2022 5:28 PM CDT Legal Sex Male 5:28 PM CDT Gender Identity Male 02/22/2022 5:28 PM CDT Sexual Orientation Not on file documented as of this encounter Miscellaneous Notes * Cerner Conversion Note - Yari ProviderMD - 08/14/2021 12:00 PM SWITCHBOARD CLERK Patient: ABRAN RENAE Age: 66 Years Sex: Male : 1955 Subjective Pain 5/10 Vital Signs T: 37 ??C TMIN: 36.8 ??C TMAX: 37.7 ??C HR: 110(Monitored) RR: 15 BP: 134/82 BP: 134/58(Line) SpO2: 94% HT: 168.91 cm WT: 83.64 kg BMI: 29.3 Physical Exam NAD, AxOx4 incisions c/d/i RLE wrapped 1+ RIGHT DP 1+ foot edema Assessment/Plan RLE multi-level claudication s/p RIGHT ilioprofunda endarterectomy with GAME ENGINEER-BKP prosthetic bypass - pain control - mobilize - home when ambulating and pain controlled on PO regimen Chronic pain - on Oxy 15 q6 at baseline - increase Oxy 15 to q4 Routine Labs - Last 24 Hours AUG 14 06:03 137 108 7 / H 140 4.0 23 0.80 \ AUG 14 06:03 \ 14.4 / H 12.3 252 / 43.1 \ Anion Gap: 10 Calcium Level: 8.4 mg/dL Electronically signed by Sergio, [facility] Conversion Analytical Strategist Cerner at 12/13/2022 9:39 AM CDT documented in this encounter Plan of Treatment Not on file documented as of this encounter Visit Diagnoses Not on filedocumented in this encounter
--- OUTSIDE RECORDS SUMMARY | 2025-07-02 07:46 | XMS_ITS | Encounter Summary ---
Author Organization [employer] ([place], [place], [place], [place], [place]) Address [address] [place] [address] Care Team Providers Care Business Services Director Name Role Phone Unavailable Primary Care Provider Unavailabl e Encounter Details Date Type Department Care Team (Late st Contact Info) Description 08/15/2021 Transcribed Document [facility] [place] Family Medicine [facility] [place] [address] ProviderYari MD [address] [place] [address] Social History Tobacco Use Types Packs/Day Years Used Date Smoking Tobacco: Never Assessed Sex and Gender Information Value Date Recorded Sex Assigned at Male 02/22/2022 5:28 PM CDT Legal Sex Male 5:28 PM CDT Gender Identity Male 02/22/2022 5:28 PM CDT Sexual Orientation Not on file documented as of this encounter Miscellaneous Notes * [employer] Conversion Note - Historical ProviderMD - 08/15/2021 12:31 PM ARTIFICIAL LIMB MAKER Patient: ABRAN RENAE Age: 66 Years Sex: Male : 1955 Subjective Pain 4-5/10, acceptably controlled. Wants to go home. Ambulating independently. Vital Signs T: 37.3 ??C TMIN: 36.9 ??C TMAX: 37.5 ??C HR: 99(Monitored) RR: 18 BP: 144/93 SpO2: 97% Physical Exam NAD, AxOx4 incisions c/d/i RLE wrapped 1+ RIGHT DP 1+ foot edema Assessment/Plan RLE multi-level claudication s/p RIGHT ilioprofunda endarterectomy with MEDICAL SONOGRAPHER-BKP prosthetic bypass - home - eRx Oxy 15 q6 #40 - F/U Menes 2 weeks with DAPHNIE documented in this encounter Plan of Treatment Not on file documented as of this encounter Visit Diagnoses Not on filedocumented in this encounter
--- OUTSIDE RECORDS SUMMARY | 2025-07-02 07:46 | XMS_ITS | Encounter Summary ---
Author Organization [employer] ([place], [place], [place], [place], [place]) Address [address] [place] [address] Care Team Providers Care Pricing Analyst Name Role Phone Unavailable Primary Care Provider Unavailabl e Encounter Details Date Type Department Care Team (Late st Contact Info) Description 08/13/2021 Transcribed Document [facility] [place] Family Medicine [facility] [place] [address] ProviderYari MD [address], [place] [id number] Social History Tobacco Use Types Packs/Day Years Used Date Smoking Tobacco: Never Assessed Sex and Gender Information Value Date Recorded Sex Assigned at Male 02/22/2022 5:28 PM CDT Legal Sex Male 5:28 PM CDT Gender Identity Male 02/22/2022 5:28 PM CDT Sexual Orientation Not on file documented as of this encounter Miscellaneous Notes * [employer]ner Conversion Note - Yari ProviderMD - 08/13/2021 7:54 PM LEHR TENDER Education-Wound Care Entered On: 08/14/2021 6:03 EST Performed On: 08/13/2021 19:54 EST by Joanie Boyd Non Emp Traveler RN Teaching/Learning Assessment Barriers To Learning : None evident Baseline Knowledge of Topic : Good Learning Style Preferences Patient : Verbal explanation Joanie Boyd Non Emp Traveler RN - 08/14/2021 6:03 EST Electronically signed by [place] [place] Conversion Commercial Property Administrator [employer] at 12/13/2022 9:36 AM CDT documented in this encounter Plan of Treatment Not on file documented as of this encounter Visit Diagnoses Not on filedocumented in this encounter
--- OUTSIDE RECORDS SUMMARY | 2025-07-02 07:46 | XMS_ITS | Encounter Summary ---
Author Organization [employer] ([place], [place], [place], [place], [place]) Address [address] [place] [address] Care Team Providers Care Money Room Teller Name Role Phone Unavailable Primary Care Provider Unavailabl e Encounter Details Date Type Department Care Team (Late st Contact Info) Description 08/15/2021 Transcribed Document [facility] [place] [facility] [place] [address] ProviderYari MD [address] [place], [place] [id number] Social History Tobacco Use Types Packs/Day Years Used Date Smoking Tobacco: Never Assessed Sex and Gender Information Value Date Recorded Sex Assigned at Male 02/22/2022 5:28 PM CDT Legal Sex Male 5:28 PM CDT Gender Identity Male 02/22/2022 5:28 PM CDT Sexual Orientation Not on file documented as of this encounter Miscellaneous Notes * [employer] Conversion Note - Yari ProviderMD - 08/15/2021 9:00 AM WIND TURBINE ERECTOR Pain Assessment Entered On: 08/15/2021 10:42 EST Performed On: 08/15/2021 8:36 EST by REBA AG RN Intervention Information: celecoxib Performed by REBA AG RN on 08/15/2021 07:36:00 EST celecoxib,200mg Oral Pain Assessment Pain Assessment : Follow-up assessment Pain Scale Goal : 3 REBA AG RN - 08/15/2021 10:42 EST documented in this encounter Plan of Treatment Not on file documented as of this encounter Visit Diagnoses Not on filedocumented in this encounter
--- OUTSIDE RECORDS SUMMARY | 2025-07-02 07:46 | XMS_ITS | Encounter Summary ---
Author Organization [employer] ([place], [place], [place], [place], [place]) Address [address] [place] [address] Care Team Providers Care Grated Cheese Maker Name Role Phone Unavailable Primary Care Provider Unavailabl e Encounter Details Date Type Department Care Team (Late st Contact Info) Description 08/13/2021 Transcribed Document [facility] [place] [address] ProviderYari MD [address] [place] [address] Social History Tobacco Use Types [...] - Yari ProviderMD - 08/13/2021 10:32 AM QUILL CLEANER [facility] Main OR PACU Summary Primary Physician: RO GERARDO MD Finalized Date/Time: 08/13/21 16:27:56 Pt. Name: ABRAN RENAE./Sex: 1955 Male Med Rec #: [id number] Physician: RO GERARDO MD Financial #: [id number] Pt. Type: I Room/Bed: [facility]/1 Admit/Disch: 08/13/21 06:32:00 - Institution: [facility] Main OR PACU I Case Times Entry 1 In PACU I 08/13/21 13:25:00 Ready for PACU 08/13/21 14:25:00 Discharge Discharge from PACU 08/13/21 16:12:00 I Last Modified By: KEN ANDERSEN RN 08/13/21 16:27:44 [facility] Main OR PACU I Case Times Audit 08/13/21 16:27:44 Sql Data Analyst: [id number] Modifier: [id number] <+> 1 Discharge from PACU I 08/13/21 16:05:05 Sql Data Analyst: [id number] Modifier: [id number] <+> 1 Ready for PACU Discharge [facility] Main OR PACU Acuity Entry 1 Start Time 08/13/21 14:25:00 Stop Time 08/13/21 16:12:00 Acuity Level [facility] PACU Acuity I Last Modified By: KEN ANDERSEN RN 08/13/21 16:27:54 Finalized By: KEN ANDERSEN RN Document Signatures Signed By: KEN ANDERSEN RN 08/13/21 16:27 Electronically signed by Sergio [facility] Conversion Handle Lathe Operator [employer]ner at 12/13/2022 9:37 AM CDT documented in this encounter Plan of Treatment Not on file documented as of this encounter Visit Diagnoses Not on filedocumented in this encounter
--- OUTSIDE RECORDS SUMMARY | 2025-07-02 07:46 | XMS_ITS | Encounter Summary ---
Author Organization [employer] ([place], [place], [place], [place], [place]) Address [address] [place] [address] Care Team Providers Care Diplomatic Officer Name Role Phone Unavailable Primary Care Provider Unavailabl e Encounter Details Date Type Department Care Team (Late st Contact Info) Description 08/15/2021 Transcribed Document [facility] [place] [address] ProviderYari MD [address] [place] [address] Social History Tobacco Use Types Packs/Day Years Used Date Smoking Tobacco: Never Assessed Sex and Gender Information Value Date Recorded Sex Assigned at Male 02/22/2022 5:28 PM CDT Legal Sex Male 5:28 PM CDT Gender Identity Male 02/22/2022 5:28 PM CDT Sexual Orientation Not on file documented as of this encounter Miscellaneous Notes * Cerner Conversion Note - Yari Lockett MD - 08/15/2021 2:31 PM BLISTER RUST ERADICATOR Patient Education Materials Follows:Health Fall Prevention in the Home, Adult Falls can cause injuries. They can happen to people of all ages. There are many things you can do to make your home safe and to help prevent falls. Ask for help when making these changes, if needed. What actions can I take to prevent falls? General Instructions ??? Use good lighting in all rooms. Replace any light bulbs that burn out. ??? Turn on the lights when you go into a dark area. Use night-lights. ??? Keep items that you use often in ealt-et-srxtq places. Lower the shelves around your home if necessary. ??? Set up your furniture so you have a clear path. Avoid moving your furniture around. ??? Do not have throw rugs and other things on the floor that can make you trip. ??? Avoid walking on wet floors. ??? If any of your floors are uneven, fix them. ??? Add color or contrast paint or tape to clearly jeanne and help you see: ? Any grab bars or handrails. ? First and last steps of stairways. ? Where the edge of each step is. ??? If you use a stepladder: ? Make sure that it is fully opened. Do not climb a closed stepladder. ? Make sure that both sides of the stepladder are locked into place. ? Ask someone to hold the stepladder for you while you use it. ??? If there are any pets around you, be aware of where they are. What can I do in the bathroom? Keep the floor dry. Clean up any water that spills onto the floor as soon as it happens. ??? Remove soap buildup in the tub or shower regularly. ??? Use non-skid mats or decals on the floor of the tub or shower. ??? Attach bath mats securely with double-sided, non-slip rug tape. ??? If you need to sit down in the shower, use a plastic, non-slip stool. ??? Install grab bars by the toilet and in the tub and shower. Do not use towel bars as grab bars. What can I do in the bedroom? Make sure that you have a light by your bed that is easy to reach. ??? Do not use any sheets or blankets that are too big for your bed. They should not hang down onto the floor. ??? Have a firm chair that has side arms. You can use this for support while you get dressed. What can I do in the kitchen? Clean up any spills right away. ??? If you need to reach something above you, use a strong step stool that has a grab bar. ??? Keep electrical cords out of the way. ??? Do not use floor romansh or wax that makes floors slippery. If you must use wax, use non-skid floor wax. What can I do with my stairs? Do not leave any items on the stairs. ??? Make sure that you have a light switch at the top of the stairs and the bottom of the stairs. If you do not have them, ask someone to add them for you. ??? Make sure that there are handrails on both sides of the stairs, and use them. Fix handrails that are broken or loose. Make sure that handrails are as long as the stairways. ??? Install non-slip stair treads on all stairs in your home. ??? Avoid having throw rugs at the top or bottom of the stairs. If you do have throw rugs, attach them to the floor with carpet tape. ??? Choose a carpet that does not hide the edge of the steps on the stairway. ??? Check any carpeting to make sure that it is firmly attached to the stairs. Fix any carpet that is loose or worn. What can I do on the outside of my home? Use bright outdoor lighting. ??? Regularly fix the edges of walkways and driveways and fix any cracks. ??? Remove anything that might make you trip as you walk through a door, such as a raised step or threshold. ??? Trim any bushes or trees on the path to your home. ??? Regularly check to see if handrails are loose or broken. Make sure that both sides of any steps have handrails. ??? Install guardrails along the edges of any raised decks and porches. ??? Clear walking paths of anything that might make someone trip, such as tools or rocks. ??? Have any leaves, snow, or ice cleared regularly. ??? Use sand or salt on walking paths during winter. ??? Clean up any spills in your garage right away. This includes grease or oil spills. What other actions can I take? Wear shoes that: ? Have a low heel. Do not wear high heels. ? Have rubber bottoms. ? Are comfortable and fit you well. ? Are closed at the toe. Do not wear open-toe sandals. ??? Use tools that help you move around (mobility aids) if they are needed. These include: ? Canes. ? Walkers. ? Scooters. ? Crutches. ??? Review your medicines with your doctor. Some medicines can make you feel dizzy. This can increase your chance of falling. Ask your doctor what other things you can do to help prevent falls. Where to find more information ??? Centers for Disease Control and Prevention, [place]: https://cdc.gov ??? National [place] on Aging: https://ky9uymt.katelyn.nih.gov Contact a doctor if: ??? You are afraid of falling at home. ??? You feel weak, drowsy, or dizzy at home. ??? You fall at home. Summary ??? There are many simple things that you can do to make your home safe and to help prevent falls. ??? Ways to make your home safe include removing tripping hazards and installing grab bars in the bathroom. ??? Ask for help when making these changes in your home. This information is not intended to replace advice given to you by your health care provider. Make sure you discuss any questions you have with your health care provider. Document Revised: 12/05/2019 Document Reviewed: 03/29/2018 [employer] Patient Education ? 2020 [employer] Procedures Endovascular Therapy for Peripheral Arterial Disease, Care After This sheet gives you information about how to care for yourself after your procedure. Your health care provider may also give you more specific instructions. If you have problems or questions, contact your health care provider. What can I expect after the procedure? After the procedure, it is common to have: ??? Pain. ??? Soreness and bruising around your puncture or incision (access site). ??? Fatigue. Follow these instructions at home: Access site care ??? Follow instructions from your health care provider about how to take care of your access site. Make sure you: ? Wash your hands with soap and water before you change your bandage (dressing). If soap and water are not available, use hand drafter heating and ventilating. ? Change your dressing as told by your health care provider. ? Leave stitches (sutures), skin glue, or adhesive strips in place. If adhesive strip edges start to loosen and curl up, you may trim the loose edges. Do not remove adhesive strips or skin glue completely unless your health care provider tells you to do that. ??? Check your access site every day for signs of infection. Check for: ? Redness, swelling, or pain. ? A lump or bump. ? Fluid or blood. ? Warmth. ? Pus or a bad smell. Medicines ??? Take gpbe-ruh-itnwfhs and prescription medicines only as told by your health care provider. You may need to take medicines to prevent blood clots and to lower your cholesterol. ??? If you were prescribed antibiotic medicine, take it as told by your health care provider. Do not stop taking the antibiotic even if you start to feel better. Driving ??? Do not drive until your health care provider approves. You should: ? Not drive for 24 hours if you were given a medicine to help you relax (sedative) during your procedure. ? Not drive or use heavy machinery while taking prescription pain medicine. Activity ??? Do not lift anything that is heavier than 10 lb (4.5 kg) until your health care provider says that it is safe. You may have this lifting limit for several days. ??? Return to your normal activities as told by your health care provider. Ask your health care provider what activities are safe for you. ? Avoid activity that requires a lot of energy, such as exercise and sports, as told by your health care provider. ? Avoid sexual activity until your health care provider says it is safe. ??? Follow your exercise plan as told by your health care provider. Eating and drinking ??? Drink fluids as instructed to help wash (flush) dye used during the procedure out of your body. ??? Follow instructions from your health care provider about eating or drinking restrictions. You may need to eat a diet that is low in salt (sodium) and fat. ??? Avoid drinking alcohol. General instructions ??? Do not take baths, swim, or use a hot tub until your health care provider approves. You may take showers. ??? Do not use any products that contain nicotine or tobacco, such as cigarettes and e-cigarettes. If you need help quitting, ask your health care provider. ??? Keep all follow-up visits as told by your health care provider. This is important. Contact a health care provider if: ??? You have a fever. ??? You have severe pain that does not get better with medicine. ??? You have redness, swelling, or pain around your access site. ??? You have a fever. ??? You have a lump or bump at your access site. Get help right away if: ??? You have fluid or blood coming from your access site. If this happens, lie down on your back and apply pressure to the area. ??? You have chest pain. ??? You have problems breathing. ??? You have pain, numbness, or tingling in your legs. ??? You faint. ??? You have any symptoms of a stroke. BE FAST is an easy way to remember the main warning signs of a stroke: ? B - Balance. Signs are dizziness, sudden trouble walking, or loss of balance. ? E - Eyes. Signs are trouble seeing or a sudden change in vision. ? F - Face. Signs are sudden weakness or numbness of the face, or the face or eyelid drooping on one side. ? A - Arms. Signs are weakness or numbness in an arm. This happens suddenly and usually on one side of the body. ? S - Speech. Signs are sudden trouble speaking, slurred speech, or trouble understanding what people say. ? T - Time. Time to call emergency services. Write down what time symptoms started. ??? You have other signs of a stroke, such as: ? A sudden, severe headache with no known cause. ? Nausea or vomiting. ? Seizure. These symptoms may represent a serious problem that is an emergency. Do not wait to see if the symptoms will go away. Get medical help right away. Call your local emergency services (911 in the [place] Do not drive yourself to the hospital. Summary ??? After the procedure, it is common to have pain and soreness near your puncture or incision (access site). ??? Check your access site every day for signs of infection, such as redness, swelling, or pain. ??? You may need to take medicines to prevent blood clots and to lower your cholesterol. ??? If you have any signs of a stroke, get help right away. This information is not intended to replace advice given to you by your health care provider. Make sure you discuss any questions you have with your health care provider. Document Revised: 08/09/2019 Document Reviewed: 12/06/2017 [employer] Patient Education ? 2020 [employer] Aortofemoral Bypass, Care After This sheet gives you information about how to care for yourself after your procedure. Your health care provider may also give you more specific instructions. If you have problems or questions, contact your health care provider. What can I expect after the procedure? After the procedure, it is common to have: ??? Pain. ??? Soreness in your groin area, near your upper legs and abdomen. ??? Scarring. ??? Some fluid or blood draining from the drainage tube. ??? Swelling in your legs. ??? Tiredness (fatigue). Follow these instructions at home: Medicines ??? Take dcbq-uxh-jouxaor and prescription medicines only as told by your health care provider. ??? If you were prescribed an antibiotic medicine, take it as told by your health care provider. Do not stop using the antibiotic even if you start to feel better. ??? Ask your health care provider if the medicine prescribed to you: ? Requires you to avoid driving or using machinery. ? Can cause constipation. You may need to take these actions to prevent or treat constipation: ? Drink enough fluid to keep your urine pale yellow. ? Take mewr-wvp-zzgpdjd or prescription medicines. ? Eat foods that are high in fiber, such as beans, whole grains, and fresh fruits and vegetables. ? Limit foods that are high in fat and processed sugars, such as fried or sweet foods. Eating and drinking ??? Follow instructions from your health care provider about eating or drinking restrictions. ??? Do not drink alcohol if: ? Your health care provider tells you not to drink. ? You are , may be , or are planning to become . ??? If you drink alcohol: ? Limit how much you use to: ? 0?1 drink a day for women. ? 0?2 drinks a day for men. ? Be aware of how much alcohol is in your drink. In the [place] one drink equals one 12 oz bottle of beer (355 mL), one 5 oz glass of wine (148 mL), or one 1? oz glass of hard liquor (44 mL). Incision care ??? Follow instructions from your health care provider about how to take care of your incisions. Make sure you: ? Wash your hands with soap and water for at least 20 seconds before and after you change your bandage (dressing). If soap and water are not available, use hand drafter heating and ventilating. ? Change your dressing as told by your health care provider. ? Leave stitches (sutures), skin glue, or adhesive strips in place. These skin closures may need to stay in place for 2 weeks or longer. If adhesive strip edges start to loosen and curl up, you may trim the loose edges. Do not remove adhesive strips completely unless your health care provider tells you to do that. ??? To keep the area around your incisions clean, gently wash the area with soap, water, and a gauze pad or washcloth. ??? Check your incision areas every day for signs of infection. Check for: ? More redness, swelling, or pain. ? Fluid or blood. ? Warmth. ? Pus or a bad smell. Activity ??? Rest as told by your health care provider. ??? Avoid sitting for a long time without moving. Get up to take short walks every 1?2 hours. This is important to improve blood flow and breathing. Ask for help if you feel weak or unsteady. ??? Do not drive until your health care provider approves. ??? Do not lift anything that is heavier than 10 lb (4.5 kg), or the limit that you are told, until your health care provider says that it is safe. ??? Avoid activity that requires a lot of energy, including exercise and sports. ??? Do exercises as told by your health care provider. ??? Return to your normal activities as told by your health care provider. Ask your health care provider what activities are safe for you. General instructions ??? If you have drains and tubes, care for them as instructed. Do not remove your drains or tubes unless your health care provider tells you to do this. ??? Wear compression stockings as told by your health care provider. These stockings help to prevent blood clots and reduce swelling in your legs. ??? Do breathing exercises, such as coughing and breathing deeply, as instructed by your health care provider. These help to prevent lung infection. ??? Do not take baths, swim, shower, or use a hot tub until your health care provider approves. You may only be allowed to take sponge baths. ??? Do not use any products that contain nicotine or tobacco, such as cigarettes, e-cigarettes, and chewing tobacco. These can delay incision healing after surgery. If you need help quitting, ask your health care provider. ??? Keep all follow-up visits as told by your health care provider. This is important. Contact a health care provider if: ??? You have a fever. ??? You have severe pain, and medicines do not help. ??? You have more redness, swelling, or pain in your incision areas. ??? You have fluid or blood coming from your incision areas. ??? An incision feels warm to the touch. ??? You have pus or a bad smell coming from your incision areas. Get help right away if you: ??? Have chest pain or trouble breathing. ??? Have numbness or tingling in your legs, or you cannot move your legs. ??? Develop severe swelling or pain in one or both legs. These symptoms may represent a serious problem that is an emergency. Do not wait to see if the symptoms will go away. Get medical help right away. Call your local emergency services (911 in the [place] Do not drive yourself to the hospital. Summary ??? After this procedure, it is common to have pain, soreness in the groin area, scarring, swelling in the legs, and fatigue. ??? Follow your health care provider's instructions about medicines, eating and drinking, and caring for your incisions. ??? Rest after the procedure, but get up to take short walks every 1?2 hours. ??? Do breathing exercises, such as coughing and breathing deeply, as instructed by your health care provider. These help to prevent lung infection. ??? Get help right away if you develop severe swelling or pain in one or both legs. This information is not intended to replace advice given to you by your health care provider. Make sure you discuss any questions you have with your health care provider. Document Revised: 06/18/2020 Document Reviewed: 06/18/2020 [email or web address] Patient Education ? 2020 [employer]. Radiology Femoral Site Care This sheet gives you information about how to care for yourself after your procedure. Your health care provider may also give you more specific instructions. If you have problems or questions, contact your health care provider. What can I expect after the procedure? After the procedure, it is common to have: ??? Bruising that usually fades within 1?2 weeks. ??? Tenderness at the site. Follow these instructions at home: Wound care ??? Follow instructions from your health care provider about how to take care of your insertion site. Make sure you: ? Wash your hands with soap and water before you change your bandage (dressing). If soap and water are not available, use hand drafter heating and ventilating. ? Change your dressing as told by your health care provider. ? Leave stitches (sutures), skin glue, or adhesive strips in place. These skin closures may need to stay in place for 2 weeks or longer. If adhesive strip edges start to loosen and curl up, you may trim the loose edges. Do not remove adhesive strips completely unless your health care provider tells you to do that. ??? Do not take baths, swim, or use a hot tub until your health care provider approves. ??? You may shower 24-48 hours after the procedure or as told by your health care provider. ? Gently wash the site with plain soap and water. ? Pat the area dry with a clean towel. ? Do not rub the site. This may cause bleeding. ??? Do not apply powder or lotion to the site. Keep the site clean and dry. ??? Check your femoral site every day for signs of infection. Check for: ? Redness, swelling, or pain. ? Fluid or blood. ? Warmth. ? Pus or a bad smell. Activity ??? For the first 2?3 days after your procedure, or as long as directed: ? Avoid climbing stairs as much as possible. ? Do not squat. ??? Do not lift anything that is heavier than 10 lb (4.5 kg), or the limit that you are told, until your health care provider says that it is safe. ??? Rest as directed. ? Avoid sitting for a long time without moving. Get up to take short walks every 1?2 hours. ??? Do not drive for 24 hours if you were given a medicine to help you relax (sedative). General instructions ??? Take jink-tvc-dvbavij and prescription medicines only as told by your health care provider. ??? Keep all follow-up visits as told by your health care provider. This is important. Contact a health care provider if you have: ??? A fever or chills. ??? You have redness, swelling, or pain around your insertion site. Get help right away if: ??? The catheter insertion area swells very fast. ??? You pass out. ??? You suddenly start to sweat or your skin gets clammy. ??? The catheter insertion area is bleeding, and the bleeding does not stop when you hold steady pressure on the area. ??? The area near or just beyond the catheter insertion site becomes pale, cool, tingly, or numb. These symptoms may represent a serious problem that is an emergency. Do not wait to see if the symptoms will go away. Get medical help right away. Call your local emergency services (911 in the [place] Do not drive yourself to the hospital. Summary ??? After the procedure, it is common to have bruising that usually fades within 1?2 weeks. ??? Check your femoral site every day for signs of infection. ??? Do not lift anything that is heavier than 10 lb (4.5 kg), or the limit that you are told, until your health care provider says that it is safe. This information is not intended to replace advice given to you by your health care provider. Make sure you discuss any questions you have with your health care provider. Document Revised: 08/27/2018 Document Reviewed: 08/27/2018 [employer] Patient Education ? 2020 [employer] documented in this encounter Plan of Treatment Not on file documented as of this encounter Visit Diagnoses Not on filedocumented in this encounter
--- OUTSIDE RECORDS SUMMARY | 2025-07-02 07:46 | XMS_ITS | Encounter Summary ---
Author Organization [employer] ([place], [place], [place], [place], [place]) Address [address] [place] [address] Care Team Providers Care Rebar Fabricator Name Role Phone Unavailable Primary Care Provider Unavailabl e Encounter Details Date Type Department Care Team (Late st Contact Info) Description 08/15/2021 Transcribed Document [facility] [place] [facility] [place] [address] ProviderYari MD [address] [place] [id number] Social History Tobacco Use Types Packs/Day Years Used Date Smoking Tobacco: Never Assessed Sex and Gender Information Value Date Recorded Sex Assigned at Male 02/22/2022 5:28 PM CDT Legal Sex Male 5:28 PM CDT Gender Identity Male 02/22/2022 5:28 PM CDT Sexual Orientation Not on file documented as of this encounter Miscellaneous Notes * Cerner Conversion Note - Historical ProviderMD - 08/15/2021 2:32 PM 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
--- OUTSIDE RECORDS SUMMARY | 2025-07-02 07:46 | XMS_ITS | Encounter Summary ---
Author Organization [email or web address] ([place], [place], [place], [place], [place]) Address [address] [place] [address] Care Team Providers Care Sack Lifter Name Role Phone Unavailable Primary Care Provider Unavailabl e Encounter Details Date Type Department Care Team (Late st Contact Info) Description 08/15/2021 Transcribed Document [facility] Medicine Formerly [facility], [facility] [place] [address] ProviderYari MD [address] [place] [address] Social History Tobacco Use Types [...] Note - Yari Lockett MD - 08/15/2021 2:33 PM PIECE DYER [facility] [place] [address] [address] :1955 Visit Time:08/13/2021 Your Visit Summary Your Care Team Admitting Physician - RO TOBIN MD Attending Physician - RO TOBIN MD Primary Care Physician - SHA DUMONT (REF), -SAMANTHA Referring Physician - YOBANI, NOT LISTED Your Diagnosis Peripheral vascular disease, unspecified, Peripheral vascular disease, unspecified These Are Your Goals No qualifying data available. What to do next Instructions From Your Care Team NO LIFTING MORE THAN 10 POUNDS FOR ONE WEEK !! DO NOT SUBMERGE AFFECTED LEG UNDER WATER !! OK TO SHOWER 08-20-21!! MAY REMOVE DRESSING PRIOR TO SHOWER !! Discharge Follow Up Instructions: Please arrange follow-up with Dr. Tobin in 2 [address] at [address] [place] [address] [address] office with in-office DAPHNIE study immediately before the visit. Follow-Up Appointments Follow Up with RO TOBIN When Within 1 week Comments Follow up with DAPHNIE Where: [facility] [address] [place] [address]. [address] [place] [address]- Business (1) Medications What How Much When Instructions Next Dose oxyCODONE (oxyCODONE 15 mg oral tablet) 1 Tablet(s) Oral Every 6 Hours as needed for as needed for pain Pickup at [facility] amLODIPine 10 Milligram(s) Oral Every Day aspirin 81 Milligram(s) Oral Every Day busPIRone 10 Milligram(s) Oral Three Times a Day With Meals celecoxib 200 Milligram(s) Oral Two Times A Day cyclobenzaprine 10 Milligram(s) Oral Three Times A Day escitalopram 20 Milligram(s) Oral Every Day fexofenadine 180 Milligram(s) Oral Every Day fluticasone nasal (Flonase) 2 Vanderwagen(s) Nostrils Both Two Times A Day gabapentin 300 Milligram(s) Oral Three Times A Day guaiFENesin 600 Milligram(s) Oral Every 12 hours moexipril 15 Milligram(s) Oral Every Day omeprazole 20 Milligram(s) Oral Every Day tamsulosin 0.4 Milligram(s) Oral Every Day Pharmacy Information [facility]: [address] [address] [phone] Take your medications faithfully. Do NOT skip medication. Do NOT stop taking medications without the direction of a physician. Carry a list of your medications with you at all times, and take this medication list with you to your first follow up visit. Report any side effects. Avoid herbal remedies unless discussed with your physician. As part of your treatment plan, your physician may have prescribed a limited course of a controlled substance. This medication may be given to help people with moderate or severe pain or for other medical conditions, but there are risks involved with treatment. Common side effects may include nausea, constipation, drowsiness, sweating, itching, dry mouth, and rash. More serious side effects may include cognitive and motor impairment, like problems with thinking, concentrating, alertness, and movement (e.g. slowed reflexes), and driving and operating heavy machinery can be dangerous. It is important for you to talk to your physician if you have these side effects or questions. These controlled substances can produce physical dependence and be habit-forming if taken for an extended period of time, which means that the body has gotten used to them and may experience withdrawal symptoms if they are abruptly stopped. Withdrawal symptoms can include runny nose, sweating, goose bumps, diarrhea, abdominal cramping, rapid heartbeat, difficulty sleeping, and nervousness. Please dispose of unused and medications per your retail pharmacy guidance. Allergies No Known Medication Allergies Immunizations This Visit No Immunizations Found Education Materials Fall Prevention in the Home, Adult Falls [...] Keep items that you use often in fmlb-wd-ixovo places. Lower the shelves around your home [...] the way. ??? Do not use floor honduran or wax that makes floors slippery. If [...] information ??? Centers for Disease Control and PreventionJOHN: https://cdc.gov ??? National [place]: https://ai6cbiv.katelyn.nih.gov Contact a doctor if: ??? You are [...] provider. Document Revised: 12/05/2019 Document Reviewed: 03/29/2018 Elsevier Patient Education ?? 2020 Else[employer] Inc. Endovascular Therapy for Peripheral Arterial Disease, Care [...] and water are not available, use hand associate professor. ? Change your dressing as told by [...] or a bad smell. Medicines ??? Take srdz-oqi-yewmkld and prescription medicines only as told by [...] provider. Document Revised: 08/09/2019 Document Reviewed: 12/06/2017 [employer] Patient Education ?? 202 [employer] Aortofemoral Bypass, Care After This sheet [...] these instructions at home: Medicines ??? Take ehxv-rgz-ylwcoyt and prescription medicines only as told by [...] keep your urine pale yellow. ? Take wcdx-ssh-vvjfcqq or prescription medicines. ? Eat foods that [...] Limit how much you use to: ? 0???1 drink a day for women. ? 0???2 drinks a day for men. ? Be aware of how much alcohol is in your drink. In the [place] one drink equals one 12 oz bottle of beer (355 mL), one 5 oz glass of wine (148 mL), or one 1?? oz glass of hard liquor (44 mL). Incision care ??? Follow instructions from your health care provider about how to take care of your incisions. Make sure you: ? Wash your hands with soap and water for at least 20 seconds before and after you change your bandage (dressing). If soap and water are not available, use hand associate professor. ? Change your dressing as told by [...] Get up to take short walks every 1???2 hours. This is important to improve blood [...] get up to take short walks every 1???2 hours. ??? Do breathing exercises, such as [...] provider. Document Revised: 06/18/2020 Document Reviewed: 06/18/2020 [employer] Patient Education ?? 2020 [employer] Femoral Site Care This sheet gives you information about how to care for yourself after your procedure. Your health care provider may also give you more specific instructions. If you have problems or questions, contact your health care provider. What can I expect after the procedure? After the procedure, it is common to have: ??? Bruising that usually fades within 1???2 weeks. ??? Tenderness at the site. Follow these instructions at home: Wound care ??? Follow instructions from your health care provider about how to take care of your insertion site. Make sure you: ? Wash your hands with soap and water before you change your bandage (dressing). If soap and water are not available, use hand associate professor. ? Change your dressing as told by [...] bad smell. Activity ??? For the first 2???3 days after your procedure, or as long [...] Get up to take short walks every 1???2 hours. ??? Do not drive for 24 hours if you were given a medicine to help you relax (sedative). General instructions ??? Take ldhz-oiw-gwyzajc and prescription medicines only as told by [...] to have bruising that usually fades within 1???2 weeks. ??? Check your femoral site every [...] provider. Document Revised: 08/27/2018 Document Reviewed: 08/27/2018 [employer] Patient Education ?? 2020 [employer]. oxycodone (ox i KOE done) Oxaydo, OxyCONTIN, Oxyfast, OxyIR, Roxicodone, Xtampza ER What is the most important information I should know about oxycodone? MISUSE OF OPIOID MEDICINE CAN CAUSE ADDICTION, OVERDOSE, OR . Keep the medication in a place where others cannot get to it. Taking opioid medicine during may cause life-threatening withdrawal symptoms in the . Fatal side effects can occur if you use opioid medicine with alcohol, or with other drugs that cause drowsiness or slow your breathing. What is oxycodone? Oxycodone is an opioid pain medication used to treat moderate to severe pain. The extended-release form of oxycodone is for fsfufb-fsy-fqpie treatment of pain and should not be used on an as-needed basis for pain. Oxycodone may also be used for purposes not listed in this medication guide. What should I discuss with my healthcare provider before using oxycodone? You should not use oxycodone if you are allergic to it, or if you have: ?? severe asthma or breathing problems; or ?? a blockage in your stomach or intestines. You should not use oxycodone unless you are already using a similar opioid medicine and are tolerant to it. Most brands of oxycodone are not approved for use in people under 18. OxyContin should not be given to a child younger than 11 years old. Tell your doctor if you have ever had: ?? breathing problems, sleep apnea; ?? a head injury, or seizures; ?? drug or alcohol addiction, or mental illness; ?? liver or kidney disease; ?? urination problems; or ?? problems with your gallbladder, pancreas, or thyroid. If you use opioid medicine while you are , your baby could become dependent on the drug. This can cause life-threatening withdrawal symptoms in the baby after it is born. Babies born dependent on opioids may need medical treatment for several weeks. Ask a doctor before using opioid medicine if you are . Tell your doctor if you notice severe drowsiness or slow breathing in the nursing baby. How should I use oxycodone? Follow the directions on your prescription label and read all medication guides. Never use oxycodone in larger amounts, or for longer than prescribed. Tell your doctor if you feel an increased urge to take more of this medicine. Never share opioid medicine with another person, especially someone with a history of drug abuse or addiction. MISUSE CAN CAUSE ADDICTION, OVERDOSE, OR . Keep the medication in a place where others cannot get to it. Selling or giving away opioid medicine is against the law. Stop taking all other opwhop-zyp-wqlej opioid pain medicines when you start taking extended-release oxycodone. Take oxycodone with food. Swallow the capsule or tablet whole to avoid exposure to a potentially fatal overdose. Do not crush, chew, break, open, or dissolve. If you cannot swallow a capsule whole, open it and sprinkle the medicine into a spoonful of pudding or applesauce. Swallow the mixture right away without chewing. Do not save it for later use. Never crush or break an oxycodone pill to inhale the powder or mix it into a liquid to inject the drug into your vein. This can cause in . Measure liquid medicine carefully. Use the dosing syringe provided, or use a medicine dose-measuring device (not a kitchen spoon). You should not stop using oxycodone suddenly. Follow your doctor's instructions about tapering your dose. Store at room temperature, away from heat, moisture, and light. Keep track of your medicine. Oxycodone is a drug of abuse and you should be aware if anyone is using your medicine improperly or without a prescription. Do not keep leftover opioid medication. Just one dose can cause in someone using this medicine accidentally or improperly. Ask your pharmacist where to locate a drug take-back disposal program. If there is no take-back program, flush the unused medicine down the toilet. What happens if I miss a dose? Since oxycodone is used for pain, you are not likely to miss a dose. Skip any missed dose if it is almost time for your next dose. Do not use two doses at one time. What happens if I overdose? Seek emergency medical attention or call the Poison Help line at . An opioid overdose can be fatal, especially in a child or other person using the medicine without a prescription. Overdose symptoms may include severe drowsiness, pinpoint pupils, slow breathing, or no breathing. Your doctor may recommend you get naloxone (a medicine to reverse an opioid overdose) and keep it with you at all times. A person caring for you can give the naloxone if you stop breathing or don't wake up. Your caregiver must still get emergency medical help and may need to perform CPR (cardiopulmonary resuscitation) on you while waiting for help to arrive. Anyone can buy naloxone from a pharmacy or local health department. Make sure any person caring for you knows where you keep naloxone and how to use it. What should I avoid while using oxycodone? Do not drink alcohol. Dangerous side effects or could occur. Avoid driving or operating machinery until you know how oxycodone will affect you. Dizziness or severe drowsiness can cause falls or other accidents. Avoid medication errors. Always check the brand and strength of oxycodone you get from the pharmacy. What are the possible side effects of oxycodone? Get emergency medical help if you have signs of an allergic reaction: hives; difficult breathing; swelling of your face, lips, tongue, or throat. Opioid medicine can slow or stop your breathing, and may occur. A person caring for you should give naloxone and/or seek emergency medical attention if you have slow breathing with long pauses, blue colored lips, or if you are hard to wake up. Call your doctor at once if you have: ?? noisy breathing, sighing, shallow breathing, breathing that stops during sleep; ?? a slow heart rate or weak pulse; ?? a light-headed feeling, like you might pass out; ?? confusion, unusual thoughts or behavior; ?? seizure (convulsions); ?? low cortisol levels-- nausea, vomiting, loss of appetite, dizziness, worsening tiredness or weakness; or ?? high levels of serotonin in the body--agitation, hallucinations, fever, sweating, shivering, fast heart rate, muscle stiffness, twitching, loss of coordination, nausea, vomiting, diarrhea. Serious breathing problems may be more likely in older adults and in those who are debilitated or have wasting syndrome or chronic breathing disorders. Common side effects may include: ?? drowsiness, headache, dizziness, tiredness; or ?? constipation, stomach pain, nausea, vomiting. This is not a complete list of side effects and others may occur. Call your doctor for medical advice about side effects. You may report side effects to FDA at 3-389-JAD-2632. What other drugs will affect oxycodone? You may have breathing problems or withdrawal symptoms if you start or stop taking certain other medicines. Tell your doctor if you also use an antibiotic, antifungal medication, heart or blood pressure medication, seizure medication, or medicine to treat HIV or hepatitis C. Opioid medication can interact with many other drugs and cause dangerous side effects or . Be sure your doctor knows if you also use: ?? cold or allergy medicines, bronchodilator asthma/COPD medication, or a diuretic ('water pill'); ?? medicines for motion sickness, irritable bowel syndrome, or overactive bladder; ?? other opioids--opioid pain medicine or prescription cough medicine; ?? a sedative like Valium--diazepam, alprazolam, lorazepam, Xanax, Klonopin, Versed, and others; ?? drugs that make you sleepy or slow your breathing--a sleeping pill, muscle relaxer, medicine to treat mood disorders or mental illness; or ?? drugs that affect serotonin levels in your body--a stimulant, or medicine for depression, Parkinson's disease, migraine headaches, serious infections, or nausea and vomiting. This list is not complete and many other drugs may affect oxycodone. This includes prescription and iprz-cjm-uxcsvlm medicines, vitamins, and herbal products. Not all possible drug interactions are listed here. Where can I get more information? Your pharmacist can provide more information about oxycodone. Remember, keep this and all other medicines out of the reach of children, never share your medicines with others, and use this medication only for the indication prescribed. Every effort has been made to ensure that the information provided by [employer]. ('[employer]') is accurate, up-to-date, and complete, but no guarantee is made to that effect. Drug information contained herein may be time sensitive. [employer] information has been compiled for use by healthcare practitioners and consumers in the [place] and therefore [employer] does not warrant that uses outside of the [place] are appropriate, unless specifically indicated otherwise. [employer]'s drug information does not endorse drugs, diagnose patients or recommend therapy. [employer] drug information is an informational resource designed to assist licensed healthcare practitioners in caring for their patients and/or to serve consumers viewing this service as a supplement to, and not a substitute for, the expertise, skill, knowledge and judgment of healthcare practitioners. The absence of a warning for a given drug or drug combination in no way should be construed to indicate that the drug or drug combination is safe, effective or appropriate for any given patient. [employer] does not assume any responsibility for any aspect of healthcare administered with the aid of information [employer] provides. The information contained herein is not intended to cover all possible uses, directions, precautions, warnings, drug interactions, allergic reactions, or adverse effects. If you have questions about the drugs you are taking, check with your doctor, nurse or pharmacist. Copyright 9911-9745 [employer]. Version: 14.02. Revision Date: 09/24/2020. Emergency Awareness and Preventative Care STROKE is an EMERGENCY Every Minute Counts Act FAST and Check for these signs: FACE Does the face look uneven? ARM Does one arm drift down? SPEECH Does their speech sound strange? TIME Call at any sign of stroke Stroke Risk Factors Atrial Fibrillation (irregular heartbeat) Diabetes Family history of stroke Heart Disease Heavy alcohol use High Blood Pressure High Cholesterol Physical inactivity and obesity Smoking Cigarette Smoking The facts are clear, cigarette smoking will shorten your life. Smoking can cause many illnesses along the way. As a healthcare provider, we recommend that you stop smoking. Assistance with quitting is available by contacting 8-432-HQFA-NOW. This is a free resource providing counseling, support, and referral. Or you may contact your personal physician. National Suicide Prevention Lifeline: The National Suicide Prevention Lifeline is a national network of local crisis centers that provides free and confidential emotional support to people in suicidal crisis or emotional distress 24 hours a day, 7 days a week. Don't Wait! Stop a Heart Attack Before it Starts What is a heart attack? A heart attack is damage or to a part of the heart from severely decreased or lack of blood flow to the heart. Over time, arteries can become narrow from the buildup of fat and cholesterol, which is called plaque. The plaque can rupture causing a blood clot to form. When the blood clot forms, the artery can become severely narrowed or completely blocked, causing a heart attack. Heart attack is the leading cause of in the [place]. 85% of muscle damage occurs within the first 2 hours. Delay in the recognition of heart attack symptoms increases the chances of . Know the early symptoms of a heart attack: Nausea Feeling of fullness in chest Jaw Pain Pain that travels down one or both arms Fatigue/being tired Anxiety Back Pain Chest pressure, squeezing, or discomfort Shortness of breath Sweating, or a cold sweat Feeling of impending doom There are unusual signs of a heart attack, too! Women, the elderly, and diabetics may present with atypical symptoms: Fainting/dizziness Weakness Confusion Risk Factors for a Heart Attack Some heart disease risk factors, such as age and family history, cannot be changed. Others, like smoking and lack of exercise, can be changed. Smoking High Cholesterol High Blood Pressure Family History Obesity Age Gender (Males are at higher risk) Lack of Exercise Diabetes Diet Stress Excessive Alcohol Intake If you or someone you know is experiencing the signs and symptoms of a heart attack, DON???T DELAY. Call immediately and seek help. If someone collapses, perform CPR! Do not attempt to drive if you are having symptoms of heart attack. Hands-Only CPR Why Hands-Only CPR? Hands-Only CPR has been shown to be as effective as conventional CPR for cardiac arrests that occur outside of a hospital. Survival depends on immediately receiving CPR from someone nearby. How do you perform Hands-Only CPR? There are two easy steps: Call if you see a teen or adult collapse Push hard and fast in the center of the chest at a beat of 100 beats per minute. Save a life! 4 WAYS TO GET AHEAD OF SEPSIS SEPSIS is a MEDICAL EMERGENCY. Time matters! Infections put you and your family at risk for a life-threatening condition called sepsis. Sepsis is the body's extreme response to an infection. It is life-threatening, and without timely treatment, sepsis can rapidly lead to tissue damage, organ failure, and . Sepsis happens when an infection you already have-in your skin, lungs, urinary tract or somewhere else-triggers a chain reaction throughout your body. 1 PREVENT INFECTIONS Take good care of chronic conditions. Talk to your doctor about getting the recommended vaccines. 2 PRACTICE GOOD HYGIENE Wash your hands frequently. Keep cuts or open sores clean and covered until they are healed. 3 KNOW THE SYMPTOMS Confusion or disorientation Shortness of breath High heart rate Fever, shivering, or feeling very cold Extreme pain or discomfort Clammy or sweaty skin 4 ACT FAST Get medical care IMMEDIATELY if you suspect sepsis or if you have an infection that is not getting better or is getting worse. To learn more about sepsis and how to prevent infections, visit www.cdc.gov/sepsis. Test Results Laboratory or Other Results This Visit (last charted value for your 08/13/2021 visit) Hematology 08/14/2021 6:03 AM WBC: 12.3 K/uL -- Normal range between ( 3.6 and 9.5 ) RBC: 4.49 Million/uL -- Normal range between ( 4.20 and 5.70 ) Hct: 43.1 % -- Normal range between ( 40.1 and 51.0 ) Hgb: 14.4 g/dL -- Normal range between ( 13.5 and 17.3 ) Platelet Count: 252 K/uL -- Normal range between ( 163 and 369 ) MCH: 32.1 pg -- Normal range between ( 25.6 and 32.2 ) MCHC: 33.4 Gram/dL -- Normal range between ( 32.2 and 36.5 ) MCV: 96.0 fL -- Normal range between ( 79.0 and 94.8 ) Slide Review: No RDW: 13.2 % -- Normal range between ( 11.7 and 14.9 ) MPV: 10.5 fL -- Normal range between ( 9.4 and 12.4 ) 08/11/2021 12:10 PM Eos %: 1.2 % -- Normal range between ( 0.0 and 7.0 ) [place] #: 0.75 K/uL -- Normal range between ( 0.16 and 1.00 ) Eos #: 0.17 x10(3)/uL -- Normal range between ( 0.00 and 0.80 ) [place] %: 5.3 % -- Normal range between ( 3.0 and 9.0 ) Baso %: 0.4 % -- Normal range between ( 0.0 and 1.5 ) Baso #: 0.06 x10(3)/uL -- Normal range between ( 0.00 and 0.20 ) Neut %: 73.7 % -- Normal range between ( 34.0 and 71.0 ) Neut #: 10.52 K/uL -- Normal range between ( 1.56 and 6.13 ) Lymph %: 18.9 % -- Normal range between ( 19.3 and 53.1 ) Lymph #: 2.69 x10(3)/uL -- Normal range between ( 1.00 and 3.90 ) IG#: 0.07 x10(3)/uL -- Normal range between ( 0.00 and 0.05 ) IG%: 0.50 % -- Normal range between ( 0.00 and 0.60 ) Microbiology 08/11/2021 12:45 PM SARS-CoV-2 (COVID19 PCR): Negative Blood Bank 08/13/2021 7:52 AM ABO/Rh (ECHO): O POS Antibody Screen: Negative ABSC 08/11/2021 12:10 PM ABO/Rh Repeat: O POS General Chemistry 08/14/2021 6:03 AM Creatinine Level: 0.80 mg/dL -- Normal range between ( 0.70 and 1.30 ) Sodium Level: 137 mmol/L -- Normal range between ( 136 and 146 ) Potassium Level: 4.0 mmol/L -- Normal range between ( 3.5 and 5.1 ) Chloride Level: 108 mmol/L -- Normal range between ( 102 and 112 ) Carbon Dioxide Level: 23 mmol/L -- Normal range between ( 21 and 32 ) Anion Gap: 10 -- Normal range between ( 9 and 20 ) Bun/Creatinine: 8.8 -- Normal range between ( 8.0 and 20.0 ) Calcium Level: 8.4 mg/dL -- Normal range between ( 8.4 and 10.1 ) eGFR : >60 mL/min/1.73m2 eGFR NonAfrican: >60 mL/min/1.73m2 Glucose Level: 140 mg/dL -- Normal range between ( 74 and 106 ) Blood Urea Nitrogen: 7 mg/dL -- Normal range between ( 7 and 22 ) 08/11/2021 12:10 PM Bilirubin Total: 0.7 mg/dL -- Normal range between ( 0.2 and 1.2 ) A/G Ratio: 1.2 -- Normal range between ( 1.1 and 2.5 ) ALT: 25 Units/Liter -- Normal range between ( 16 and 61 ) AST: 17 Units/Liter -- Normal range between ( 5 and 37 ) Globulin: 3.5 Gram/dL -- Normal range between ( 1.5 and 4.5 ) Alk Phos: 92 Units/Liter -- Normal range between ( 27 and 136 ) Protein Total: 7.6 Gram/dL -- Normal range between ( 6.4 and 8.2 ) Albumin Level: 4.1 Gram/dL -- Normal range between ( 3.4 and 5.0 ) Coagulation 08/11/2021 12:10 PM INR: 1.0 -- Normal range between ( 0.9 and 1.2 ) PTT: 27.8 Second(s) -- Normal range between ( 22.0 and 33.0 ) PT: 10.7 Second(s) -- Normal range between ( 9.2 and 12.0 ) Protein & Immunoglobulin Studies 08/11/2021 12:10 PM Prealbumin: 22.9 mg/dL -- Normal range between ( 20.0 and 40.0 ) Patient Name:ABRAN RENAE I have received and understand this information and was given the opportunity to ask questions. Patient/Follow Up Specialist Name: Patient/Follow Up Specialist Signature: Relationship to Patient: Clinician/Hospital Follow Up Specialist Signature: Date: documented in this encounter Plan of Treatment Not on file documented as of this encounter Visit Diagnoses Not on filedocumented in this encounter
--- OUTSIDE RECORDS SUMMARY | 2025-07-02 07:46 | XMS_ITS | Clinical Summary ---
Author Organization [facility] Address [address] [place] [address] Care Team Providers Care Customer Service Technician Name Role Phone Fortunato Vasquez DO Primary Care Provider [phone] Jean Marie Burr MD Unavailable [phone] Allergies No known active allergies Medications amLODIPine (Norvasc) 10 MG tablet Take 1 tablet (10 mg) by mouth 1 (one) time each day. Active atorvastatin (Lipitor) 80 MG tablet Take 1 tablet (80 mg) by mouth 1 (one) time each day. Active busPIRone (Buspar) 15 MG tablet Take 1 tablet (15 mg) by mouth 3 (three) times a day. Active celecoxib (CeleBREX) 50 MG capsule Take 1 capsule (50 mg) by mouth 2 (two) times a day. Active clopidogrel (Plavix) 75 MG tablet Take 1 tablet (75 mg) by mouth 1 (one) time each day. Active cyclobenzaprine (Flexeril) 10 MG tablet Take 1 tablet (10 mg) by mouth 3 (three) times a day if needed for muscle spasms. Active escitalopram (Lexapro) 20 MG tablet Take 1 tablet (20 mg) by mouth 1 (one) time each day. Active fluticasone (Flonase) 50 MCG/ACT nasal spray Administer 2 sprays into each nostril 1 (one) time each day. Shake gently. Before first use, prime pump. After use, clean tip and replace cap. Active furosemide (Lasix) 20 MG tablet Take 1 tablet (20 mg) by mouth 1 (one) time each day. Active gabapentin (Neurontin) 300 MG capsule Take 1 capsule (300 mg) by mouth 3 (three) times a day. Active metoprolol succinate XL (Toprol-XL) 25 MG 24 hr tablet Take 1 tablet (25 mg) by mouth 1 (one) time each day. Do not crush or chew. Active moexipril (Univasc) 15 MG tablet Take 2 tablets (30 mg) by mouth 1 (one) time each day. Active omeprazole (PriLOSEC) [address] capsule Take 1 capsule (20 mg) by mouth 1 (one) time each day. Do not crush or chew. Active oxyCODONE (Roxicodone) 15 MG immediate release tablet Take 1 tablet (15 mg) by mouth 3 (three) times a day. Active tamsulosin (Flomax) 0.4 MG 24 hr capsule Take 1 capsule (0.4 mg) by mouth 1 (one) time each day with dinner. Active Social History Tobacco Use Types Packs/Day Years Used Date Smoking Tobacco: Every Day Cigarettes Smokeless Tobacco: Never Tobacco Cessation:Ready to Q uit: Not Asked; Counseling Given: Not Answered Alcohol Use Standard Drinks/Week Comments Yes 0 (1 standard drink = 0.6 oz pur e alcohol) few days a week Sex and Gender Information Value Date Recorded Sex Assigned at Not on file Legal Sex Male 8:20 PM EDT Gender Identity Not on file Sexual Orientation Not on file Plan of Treatment Health Maintenance Due Date Last Done Comments [facility]-Depression Screening 1955 [facility]-Hepatitis C Screening 1955 [facility]ic[facility] Annual Wellness (AWV) 1955 [facility]-/Child/Adol SDOH Screenings 1955 [facility]- SDOH Screenings 1974 [facility]-Adult SDOH Screenings 1974 [facility]-DTaP,Tdap,and Td Vaccines (1 - Tdap) 10/30/1996 10/29/1996 CT Colonography 2001 Colonoscopy 2001 FIT-DNA 2001 FIT 2001 FOBT 2001 Sigmoidoscopy 2001 [facility]-Colorectal Cancer Screening 2001 [facility]-Pneumococcal Vaccine: 50+ Years (1 of 1 - PCV) 2006 [facility]-Zoster Vaccines (1 of 2) 2006 [facility]-MIHLI-47 Vaccine (5 - 2025-26 season) 2025 06/02/2022, 11/29/2021, 07/02/2021, Additional history exists [facility]-Influenza Vaccine (#1) 04/28/202506/12, 06/02/2022, 06/29/2020 [facility]-RSV Vaccine: 60+ Years or (1 - 1-dose 75+ series) 2031 HPV Vaccines Aged Out No longer eligi ble based on patient's age to complete this topic [facility]-HIB Vaccines Aged Out No longer e ligible based on patient's age to complete this topic [facility]-Hepatitis A Vaccines Aged Out No longer eligible based on patient's age to complete this topic [facility]-IPV Vaccines Aged Out No longer e ligible based on patient's age to complete this topic [facility]-Rotavirus Vaccines Aged Out No lo nger eligible based on patient's age to complete this topic Insurance MEDICARE Care Teams Customer Service Technician Relationship Specialty Start Date End Date Fortunato Vasquez DO [address] [place] [address] PCP - General 03/15/24 Jean Marie Burr MD [address] [facility] [address] [place] [address] Referring Physician 03/15/24
--- OUTSIDE RECORDS SUMMARY | 2025-07-02 07:46 | XMS_ITS | Encounter Summary ---
Author Organization [employer] ([place], [place], [place], [place], [place]) Address [address] [place] [address] Care Team Providers Care Student Liaison Officer Name Role Phone Unavailable Primary Care Provider Unavailabl e Encounter Details Date Type Department Care Team (Late st Contact Info) Description 08/15/2021 Transcribed Document [facility] [place] [facility] [place] [address] ProviderYari MD [address] [place] [phone] Social History Tobacco Use Types Packs/Day Years Used Date Smoking Tobacco: Never Assessed Sex and Gender Information Value Date Recorded Sex Assigned at Male 02/22/2022 5:28 PM CDT Legal Sex Male 5:28 PM CDT Gender Identity Male 02/22/2022 5:28 PM CDT Sexual Orientation Not on file documented as of this encounter Miscellaneous Notes * Cerner Conversion Note - Yari ProviderMD - 08/15/2021 2:32 PM AFTERSCHOOL Nursing Discharge Summary Entered On: 08/15/2021 14:33 EST Performed On: 08/15/2021 14:32 EST by REBA AG RN Discharge Documentation Discharge Date/Time : 08/15/2021 14:32 EST Patient Disposition, General : Discharge Discharge To : Home with ambulatory/outpatient follow-up Mode Of Departure, General Discharge : Private vehicle Accompanied By, Discharge : Friend IV Discontinued : Yes Personal Belongings With Patient : Yes Pt's Own Supply of Medications Returned : No Prescriptions Given to Patient : Electronically sent Medications Given to Patient : No Discharge Instructions Reviewed With, Opportunity For Questions Given : Patient, Friend Patient Education Completed : Yes Teaching Method : Printed materials Teaching Evaluation : Verbalizes understanding REBA AG RN - 08/15/2021 14:32 EST Electronically signed by Sergio, [facility] Conversion Customer Service Sales Associate Cerner at 12/13/2022 9:13 AM CDT documented in this encounter Plan of Treatment Not on file documented as of this encounter Visit Diagnoses Not on filedocumented in this encounter
--- OUTSIDE RECORDS SUMMARY | 2025-07-02 07:46 | XMS_ITS | Encounter Summary ---
Author Organization [employer] ([place], [place], [place], [place], [place]) Address [address] [place] [address] Care Team Providers Care Purchaser Name Role Phone Unavailable Primary Care Provider Unavailabl e Encounter Details Date Type Department Care Team (Late st Contact Info) Description 08/13/2021 Transcribed Document [facility] [place] [facility] [place] [address] ProviderYari MD [address] [place] [address] Social History Tobacco Use Types [...] - Yari ProviderMD - 08/13/2021 10:32 AM SPLUNK DASHBOARD DEVELOPER [facility] Main OR Preop Summary Primary Physician: RO GERARDO MD Finalized Date/Time: 08/13/21 13:35:04 Pt. Name: ABRAN RENAE./Sex: 1955 Male Med Rec #: [id number] Physician: RO GERARDO MD Financial #: [id number] Pt. Type: I Room/Bed: ASA/2 Admit/Disch: 08/13/21 06:32:00 - Institution: [facility] PreOp Case Times Entry 1 In Preop 08/13/21 07:22:00 Ready for Holding n/a Room Patient Ready for 08/13/21 09:03:00 Surgery Patient Out of Preop 08/13/21 09:55:00 Patient Out of n/a Holding Room Last Modified By: MOSHE VERONICA 08/13/21 13:35:03 [facility] PreOp Case Times Audit 08/13/21 13:35:03 Headhunter: SAHRAJ Modifier: [email or web address] <+> 1 Patient Out of Preop Finalized By: MOSHE VERONICA Document Signatures Signed By: MOSHE VERONICA 08/13/21 13:35 Electronically signed by Sergio [facility] Conversion Food Beverage Supervisor Cerner at 12/13/2022 9:40 AM CDT documented in this encounter Plan of Treatment Not on file documented as of this encounter Visit Diagnoses Not on filedocumented in this encounter
--- OUTSIDE RECORDS SUMMARY | 2025-07-02 07:46 | XMS_ITS | Encounter Summary ---
Author Organization [employer] ([place], [place], [place], [place], [place]) Address [address] [place] [address] Care Team Providers Care Sebd Teacher Name Role Phone Unavailable Primary Care Provider Unavailabl e Encounter Details Date Type Department Care Team (Late st Contact Info) Description 08/14/2021 Transcribed Document [place] [facility] [place] [address] ProviderYari MD [facility] [place] [address] Social History Tobacco Use Types [...] Conversion Note - Yari ProviderMD - 08/14/2021 9:00 PM ETL SOFTWARE ENGINEER Pain Assessment Entered On: 08/14/2021 21:07 EST Performed On: 08/14/2021 21:54 EST by Fern Painter Rn-Traveler Intervention Information: celecoxib Performed by Fern Painter Rn-Traveler on 08/14/2021 20:54:00 EST celecoxib,200mg Oral Pain Assessment Pain Assessment : Follow-up assessment Pain Scale Goal : 3 Pain Scale Used : 0-10 Scale Fern Painter Rn-Traveler - 08/14/2021 21:07 EST Pain Scale Intensity : 4 Fern Painter Rn-Traveler - 08/14/2021 21:07 EST Image 4 - Images currently included in the form version of this document have not been included in the text rendition version of the form. documented in this encounter Plan of Treatment Not on file documented as of this encounter Visit Diagnoses Not on filedocumented in this encounter
--- OUTSIDE RECORDS SUMMARY | 2025-07-02 07:47 | XMS_ITS | Encounter Summary ---
Author Organization [employer] ([place], [place], [place], [place], [place]) Address [address] [place] [address] Care Team Providers Care Batch And Furnace Manager Name Role Phone Unavailable Primary Care Provider Unavailabl e Encounter Details Date Type Department Care Team (Late st Contact Info) Description 08/13/2021 Transcribed Document [facility] [place] [facility] [place] [address] ProviderYari MD [address] [place] [phone] Social History Tobacco Use Types Packs/Day Years Used Date Smoking Tobacco: Never Assessed Sex and Gender Information Value Date Recorded Sex Assigned at Male 02/22/2022 5:28 PM CDT Legal Sex Male 5:28 PM CDT Gender Identity Male 02/22/2022 5:28 PM CDT Sexual Orientation Not on file documented as of this encounter Miscellaneous Notes * Cerner Conversion Note - Yari ProviderMD - 08/13/2021 2:00 AM BEAUTICIAN APPRENTICE Spiritual Care Assessment Entered On: 08/13/2021 8:49 EST Performed On: 08/13/2021 7:57 EST by LAURA AMBRIZ General Information Initial Visit : Yes Referred by : Patient Referral Reason Comment : Pre-surgery visit Ministry Provided to : Patient LAURA AMBRIZ - 08/13/2021 8:47 EST Spiritual Assessment Spiritual Assessment Comment/Summary Points : Provided pre-surgery visit and prayer. Spirital Assessment Comment/Summary Report : SPIRITUAL ASSESSMENT COMMENT/SUMMARY No qualifying data available. LAURA AMBRIZ - 08/13/2021 8:47 EST Interventions Emotional Support : Empathic/Engaged listening Spiritual and Voodoo : Prayer shared, Spiritual/Voodoo support provided LAURA AMBRIZ - 08/13/2021 8:47 EST Electronically signed by [facility], [facility] Conversion Shipping Room Supervisor Cerner at 12/13/2022 9:14 AM CDT documented in this encounter Plan of Treatment Not on file documented as of this encounter Visit Diagnoses Not on filedocumented in this encounter
--- OUTSIDE RECORDS SUMMARY | 2025-07-02 07:47 | XMS_ITS | Clinical Summary ---
Author Organization [employer] ([place], [place], [place], [place], [place]) Address [address] [place] [address] Care Team Providers Care Principal Architectural Firm Name Role Phone Unavailable Primary Care Provider Unavailabl e Social History Tobacco Use Types Packs/Day Years Used Date Smoking Tobacco: Never Assessed Sex and Gender Information Value Date Recorded Sex Assigned at Male 02/22/2022 5:28 PM CDT Legal Sex Male 5:28 PM CDT Gender Identity Male 02/22/2022 5:28 PM CDT Sexual Orientation Not on file Plan of Treatment Not on file
--- OUTSIDE RECORDS SUMMARY | 2025-07-02 07:47 | XMS_ITS | Encounter Summary ---
Author Organization [employer] ([place], [place], [place], [place], [place]) Address [address] [place] [address] Care Team Providers Care Finish Molder Name Role Phone Unavailable Primary Care Provider Unavailabl e Encounter Details Date Type Department Care Team (Late st Contact Info) Description 08/13/2021 Transcribed Document [facility] [place] [facility] [place] [address] ProviderYari MD [address] [place] [phone] Social History Tobacco Use Types Packs/Day Years Used Date Smoking Tobacco: Never Assessed Sex and Gender Information Value Date Recorded Sex Assigned at Male 02/22/2022 5:28 PM CDT Legal Sex Male 5:28 PM CDT Gender Identity Male 02/22/2022 5:28 PM CDT Sexual Orientation Not on file documented as of this encounter Miscellaneous Notes * [employer] Conversion Note - Historical ProviderMD - 08/13/2021 3:54 PM INFANT TODDLER LEAD TEACHER Evaluation, Physical Therapy Entered On: 08/14/2021 16:03 EST Performed On: 08/14/2021 15:55 EST by JUAN GUTHRIE, PT General Information, PT Visit Type, PT : Initial evaluation Patient Orders : Order Date Order Ordering 08/13/2021 15:54 PT Evaluation and Treatment Ordered By: NAMAN NICHOLSON PA Active Diagnoses : 08/12/2021 12:00 Peripheral vascular disease, unspecified Admission Date : 08/13/2021 06:32 Personal Devices : Personal Devices No Devices Recorded Assistive Devices : Assistive Devices No Devices Recorded Precautions in Place : Fall prevention measures JUAN GUTHRIE, PT - 08/14/2021 15:55 EST General Status Patient Received Status : Supine in bed Treatment Start Time : 08/14/2021 15:35 EST Patient Left Status : Sitting edge of bed, RN/PCT informed, All needs met and within reach RN/PCT Informed Comment : RN [email or web address]'diya therapy Treatment End Time : 08/14/2021 15:51 EST Treatment Time : 16 Minute(s) JUAN GUTHRIE, PT - 08/14/2021 15:55 EST History and Environment Living Situation, Therapy : Home Patient Lives With : Alone Persons Assisting Patient at Home : Alone Professional Skilled Services : None Persons Providing Information : Patient Home Equipment Therapy, PT : Commode, Walker Walker : Walker, front wheel Stairs : No JUAN GUTHRIE, PT - 08/14/2021 15:55 EST Prior Level of Function PT GRID Prior LOF Ambulation, Household : Independent Prior LOF Ambulation, Community : Independent Prior LOF Bed Mobility : Independent Prior LOF Toileting : Independent Prior LOF Transfer : Independent JUAN GUTHRIE, PT - 08/14/2021 15:55 EST History and Environment Comment, PT : Pt has 4 dogs JUAN GUTHRIE, PT - 08/14/2021 15:55 EST Upper Extremity Right UE Active ROM : WFL Right UE Strength : WFL Left UE Active ROM : WFL Left UE Strength : WFL JUAN GUTHRIE, PT - 08/14/2021 15:55 EST Lower Extremity RLE Active ROM : WFL Right LE Strength : L LLE Active ROM : WFL Left LE Strength : WFL JUAN GUTHRIE, PT - 08/14/2021 15:55 EST Functional Mobility Mobility Grid Bed Roll Left : Rehab Complete independence Bed Roll Right : Rehab Complete independence Bed Scooting : Rehab Complete independence Supine to Sit : Rehab Complete independence Sit to Stand : Rehab Complete independence Stand to Sit : Rehab Complete independence Sit to Supine : Rehab Complete independence JUAN GUTHRIE, PT - 08/14/2021 15:55 EST Gait Training/Assessment, PT Weight Bearing Status Maintained : Yes Weight Bearing Status : Full Gait Assistance Level : Supervision Walking Distance : 350ft Ambulatory Devices : Gait belt, Walker, front wheel Gait Deviations : Yes Gait Training Comment : Antalgic gait due to femoropopliteal endarterectomy. UJAN GUTHRIE, PT - 08/14/2021 15:55 EST Cognition Assessment, PT Orientation : Oriented x 4 JUAN GUTHRIE, PT - 08/14/2021 15:55 EST Edu Topics Physical Therapy Education Grid Gait Training : Returns demonstration Use of Assistive Device : Returns demonstration JUAN GUTHRIE, PT - 08/14/2021 15:55 EST Indication Assesessment, PT Physical Therapy Indicated : Yes ROSEMARIE GUTHRIERANDAL Osman, PT - 08/14/2021 15:55 EST Plan of Care, PT PT Tx Plan/Goals Established w Patient : Yes ROSEMARIE GUTHRIESHUA Jacqui, PT - 08/14/2021 15:55 EST Treatment Note Subjective Comment : Pt agreed to therapy eval. Pt reports he has walked several times today independently in order to faciltate his discharge to home. Patient's Response to Treatment : Appropriate Additional Objective Information : Pt with independent functional mobility to EOB and sit>stand. Pt attempted ambulation in room w/o AD but was noted with compromised balance due to pain. Pt was encouraged to try RW. Pt gait much improved with RW. Pt ambulated 350ft w/ RW and no loss of balance supervision only with cues for shoulders back and down and to walk within YUSUF of RW. Pt able to correct and also self-correct throughout ambualtion. Pt returned to room to sit EOB. Assessment : Pt functional mobility and gait sufficient for discharge to home. Pt will require use of RW for safety at home especially with four dogs in the home. Pt will likely have no need for therapy as he is very motivated to return to [facility] and is walking regularly. Appropriate for discharge to home. Plan for Treatment : No skilled therapy needed. JUAN GUTHRIE, PT - 08/14/2021 15:55 EST Pain Assessment Pain Scaled Used : 0-10 Pain scale Pain Score Pre-Intervention : 3 JUAN GUTHRIE, PT - 08/14/2021 15:55 EST Image 1 - Images currently included in the form version of this document have not been included in the text rendition version of the form. Anticipated Discharge Needs, OT/PT Anticipated Discharge to : Home, independently Recommend Continued Therapy at Discharge : No JUAN GUTHRIE, PT - 08/14/2021 15:55 EST [place] PT Charges PT Eval Moderate Complexity : 1 JUAN GUTHRIE, PT - 08/14/2021 15:55 EST Electronically signed by Sergio, [facility] Conversion Meter And Service Line Inspector Cerner at 12/13/2022 9:32 AM CDT documented in this encounter Plan of Treatment Not on file documented as of this encounter Visit Diagnoses Not on filedocumented in this encounter
--- OUTSIDE RECORDS SUMMARY | 2025-07-02 07:47 | XMS_ITS | Encounter Summary ---
Author Organization [employer] ([place], [place], [place], [place], [place]) Address [address] [place] [address] Care Team Providers Care Glove Maker Name Role Phone Unavailable Primary Care Provider Unavailabl e Encounter Details Date Type Department Care Team (Late st Contact Info) Description 08/13/2021 Transcribed Document [facility] [place] [address] ProviderYari MD [address] [place] [phone] Social History Tobacco Use Types Packs/Day Years Used Date Smoking Tobacco: Never Assessed Sex and Gender Information Value Date Recorded Sex Assigned at Male 02/22/2022 5:28 PM CDT Legal Sex Male 5:28 PM CDT Gender Identity Male 02/22/2022 5:28 PM CDT Sexual Orientation Not on file documented as of this encounter Miscellaneous Notes * Cerner Conversion Note - Yari Lockett MD - 08/13/2021 8:58 AM PAPER ROLL MACHINE OPERATOR Peripheral Nerve Block Entered On: 08/13/2021 8:59 EST Performed On: 08/13/2021 8:58 EST by MOSHE VERONICA Peripheral Nerve Block Peripheral Nerve Block Start Date/Time : 08/13/2021 8:20 EST Verbally Confirm Pt, Site, and Procedure : Yes Time Out Pause Time : 08/13/2021 8:20 EST Site Preparation : Chlorhexidine (Hibiclens) Peripheral Nerve Block : Femoral, Sciatic Laterality : Right Peripheral Nerve Block Performed by : KYRA ROBERTS MD-ANS Medication Delivery Method : Single Shot Peripheral Nerve Block Assisted by : MOSHE VERONICA Ultra sound used during insertion : Yes Nerve Block Activity, Patient Tolerance : Good Peripheral Nerve Block Comment : nerve stimulator Peripheral Nerve Block End Date/Time : 08/13/2021 8:33 EST MOSHE VERONICA - 08/13/2021 8:58 EST Electronically signed by Sergio, [facility] Conversion Medical Instrument Technician Cerner at 12/13/2022 9:25 AM CDT documented in this encounter Plan of Treatment Not on file documented as of this encounter Visit Diagnoses Not on filedocumented in this encounter
--- OUTSIDE RECORDS SUMMARY | 2025-07-02 07:47 | XMS_ITS | Encounter Summary ---
Author Organization [employer] ([place], [place], [place], [place], [place]) Address [address] [place] [address] Care Team Providers Care Designer Name Role Phone Unavailable Primary Care Provider Unavailabl e Encounter Details Date Type Department Care Team (Late st Contact Info) Description 08/13/2021 Transcribed Document [facility] [place] [facility] [place] [address] ProviderYari MD [address] [place] [phone] Social History Tobacco Use Types Packs/Day Years Used Date Smoking Tobacco: Never Assessed Sex and Gender Information Value Date Recorded Sex Assigned at Male 02/22/2022 5:28 PM CDT Legal Sex Male 5:28 PM CDT Gender Identity Male 02/22/2022 5:28 PM CDT Sexual Orientation Not on file documented as of this encounter Miscellaneous Notes * [employer] Conversion Note - Historical ProviderMD - 08/13/2021 4:24 PM CADD MANAGER Pain Assessment Entered On: 08/13/2021 19:43 EST Performed On: 08/13/2021 18:29 EST by MARGARITA TEJADA CNA Intervention Information: morphine Performed by MARGARITA TEJADA CNA on 08/13/2021 17:59:00 EST morphine,2mg IV Push,Peripheral Line 1,Pain (Moderate 4-6) Pain Assessment Pain Assessment : Follow-up assessment Pain Scale Goal : 5 Pain Improved by Intervention : Yes MARGARITA TEJADA CNA - 08/13/2021 19:43 EST documented in this encounter Plan of Treatment Not on file documented as of this encounter Visit Diagnoses Not on filedocumented in this encounter
--- OUTSIDE RECORDS SUMMARY | 2025-07-02 07:47 | XMS_ITS | Encounter Summary ---
Author Organization [employer] ([place], [place], [place], [place], [place]) Address [address] [place] [address] Care Team Providers Care Air Cargo Agent Name Role Phone Unavailable Primary Care Provider Unavailabl e Encounter Details Date Type Department Care Team (Late st Contact Info) Description 08/13/2021 Transcribed Document [facility] [place] [facility] [place] [address] ProviderYari MD [address] [place] [phone] Social History Tobacco Use Types Packs/Day Years Used Date Smoking Tobacco: Never Assessed Sex and Gender Information Value Date Recorded Sex Assigned at Male 02/22/2022 5:28 PM CDT Legal Sex Male 5:28 PM CDT Gender Identity Male 02/22/2022 5:28 PM CDT Sexual Orientation Not on file documented as of this encounter Miscellaneous Notes * Cerner Conversion Note - Historical ProviderMD - 08/13/2021 8:13 PM EMAIL MARKETING ASSISTANT Pain Assessment Entered On: 08/14/2021 1:50 EST Performed On: 08/13/2021 20:54 EST by Joanie Boyd Non Emp Traveler RN Intervention Information: oxyCODONE Performed by Joanie Boyd Non Emp Traveler RN on 08/13/2021 19:54:00 EST oxyCODONE,15mg Oral,Pain Pain Assessment Pain Assessment : Follow-up assessment Pain Scale Goal : 5 Pain Improved by Intervention : Yes Joanie Boyd Non Emp Traveler RN - 08/14/2021 1:50 EST documented in this encounter Plan of Treatment Not on file documented as of this encounter Visit Diagnoses Not on filedocumented in this encounter
--- OUTSIDE RECORDS SUMMARY | 2025-07-02 07:47 | XMS_ITS | Encounter Summary ---
Author Organization [employer] ([place], [place], [place], [place], [place]) Address [address] [place] [address] Care Team Providers Care Instrument Shop Supervisor Name Role Phone Unavailable Primary Care Provider Unavailabl e Encounter Details Date Type Department Care Team (Late st Contact Info) Description 08/15/2021 Transcribed Document [facility] [place] Medicine [facility] [place] [address] ProviderYari MD [address] [place] [address] Social History Tobacco Use Types [...] Conversion Note - Historical ProviderMD - 08/15/2021 5:00 AM GLYCERIN OPERATOR Chart Check - Review Order Profile Entered On: 08/15/2021 4:16 EST Performed On: 08/15/2021 5:00 EST by Fern Painter Rn-Travelamanda Chart Check Powerplans Initiated/Discontinued as Appropriate : Yes All Active Orders Reviewed : Yes Fern Painter Rn-Traveler - 08/15/2021 4:16 EST documented in this encounter Plan of Treatment Not on file documented as of this encounter Visit Diagnoses Not on filedocumented in this encounter
--- OUTSIDE RECORDS SUMMARY | 2025-07-02 07:47 | XMS_ITS | Encounter Summary ---
Author Organization [employer] ([place], [place], [place], [place], [place]) Address [address] [place] [address] Care Team Providers Care Career Development Associate Name Role Phone Unavailable Primary Care Provider Unavailabl e Encounter Details Date Type Department Care Team (Late st Contact Info) Description 08/13/2021 Transcribed Document [facility] [place] [facility] [place] [address] ProviderYari MD [address] [place], [place] [phone] Social History Tobacco Use Types Packs/Day Years Used Date Smoking Tobacco: Never Assessed Sex and Gender Information Value Date Recorded Sex Assigned at Male 02/22/2022 5:28 PM CDT Legal Sex Male 5:28 PM CDT Gender Identity Male 02/22/2022 5:28 PM CDT Sexual Orientation Not on file documented as of this encounter Miscellaneous Notes * Cerner Conversion Note - Yari ProviderMD - 08/13/2021 4:42 PM AIRPORT OPERATIONS OFFICER SHA DUMONT, [place] [place] [id number] Re: ABRAN RENAE Date of Visit: 08/13/2021 Dear SHA DUMONT Thank you for allowing me to participate in the care of ABRAN RENAE. Please see his accompanying operative note from the procedure performed at [facility] on 08/13/2021. This Document is confidential and intended solely for the use of the individual or entity to which it is addressed. If you are not the named addressee, please disregard and do not disseminate, distribute or copy this information. If you are the intended recipient any disclosure of this information and its contents is strictly prohibited. Sincerely, [facility] [address] [place] [address] The following document(s) were included in the letter: August 13, 2021 13:50:38 EST - (08/13/2021) Vascular op note documented in this encounter Plan of Treatment Not on file documented as of this encounter Visit Diagnoses Not on filedocumented in this encounter
--- OUTSIDE RECORDS SUMMARY | 2025-07-02 07:47 | XMS_ITS | Encounter Summary ---
Author Organization [employer] ([place], [place], [place], [place], [place]) Address [address] [place] [address] Care Team Providers Care National Stormwater Leader Name Role Phone Unavailable Primary Care Provider Unavailabl e Encounter Details Date Type Department Care Team (Late st Contact Info) Description 08/10/2021 Transcribed Document [facility] [place] Family [place] [facility] [place] [address] ProviderYari MD [address] [place] [address] Social History Tobacco Use Types Packs/Day Years Used Date Smoking Tobacco: Never Assessed Sex and Gender Information Value Date Recorded Sex Assigned at Male 02/22/2022 5:28 PM CDT Legal Sex Male 5:28 PM CDT Gender Identity Male 02/22/2022 5:28 PM CDT Sexual Orientation Not on file documented as of this encounter Miscellaneous Notes * Cerner Conversion Note - Yari ProviderMD - 08/10/2021 3:21 PM CHARGE MACHINE OPERATOR PAT Adult Entered On: 08/10/2021 15:34 EST Performed On: 08/10/2021 15:21 EST by KEE HERNANDEZ RN Vital Measurements Temperature Source : Temporal artery scanning Temperature, Fahrenheit : 98.3 Deg F Clinical Temperature, C : 36.8 Deg C Pulse Method : Pulse Oximetry Peripheral Pulse Rate : 96 bpm Blood Pressure Location : Arm, right upper Blood Pressure Source : Non-Invasive BP Device Blood Pressure Position : Sitting Systolic Blood Pressure : 161 mmHg (HI) Diastolic Blood Pressure : 94 mmHg (HI) Oxygen Saturation : 97 % Oxygen Therapy Mode : Room air SHERIDAN DIXON RN - 08/11/2021 11:50 EST Height and Weight, Clinical Dosing Height Source : Chart Height Entry Format : [place] Height, Feet : 5 ft(Converted to: 152 cm, 60 Inch) Height, Inches : 6.5 Inch(Converted to: 0 ft 7 Inch, 16.51 cm) Clinical Height : 168.91 cm Weight Source : Standing scale Weight Entry Format : [place] Clinical Dosing Weight : 83.64 kg Weight, Pounds : 184 lb Body Surface Area (BSA) : 1.94 m2 Body Mass Index : 29.3 kg/m2 (HI) [place] Body Weight : 64 kg SHERIDAN DIXON RN - 08/11/2021 11:28 EST Health Histories Smoking Status : 10 or more cigarettes (1/2 pack or more)/day in last 30 days Smokeless Tobacco Status : Never Desires Tobacco Cessation Medication : No Reason for No Tobacco Cessation Medication : Refuses FDA approved medications Implant/Device Type, Instrument Technician Apprentice and Model : spinal cord stimulator KEE HERNANDEZ RN - 08/10/2021 15:21 EST Social History (As Of: 08/13/2021 07:41:43 EST) Tobacco: 10 or more cigarettes (1/2 pack or more)/day in last 30 days Smoking Status. Never Smokeless Tobacco Status. Years of Use: 49. Packs/Tins Daily: 1. Last Used: Jul 2021. (Last Updated: 08/10/2021 15:22:32 EST by KEE HERNANDEZ RN) Alcohol: Alcohol Use History Yes. Total Drinks/Week: 14. Alcohol Use Frequency Daily. Alcohol Use Comment 1 to 2 glasses wine a day. (Last Updated: 08/10/2021 15:23:04 EST by KEE HERNANDEZ RN) Substance Abuse: Drug Use Hx: No. Use in Last 12 Months: No. (Last Updated: 08/10/2021 15:23:12 EST by KEE HERNANDEZ RN) Drug Use Hx: Yes. Use in Last 12 Months: Yes. Marijuana/Hashish Recreational Drug Type. (Last Updated: 08/10/2021 15:23:26 EST by KEE HERNANDEZ RN) Drug Use Hx: Yes. Use in Last 12 Months: Yes. Marijuana/Hashish Recreational Drug Type. Frequency: Weekly. Drug Last Use: 2 x week. (Last Updated: 08/10/2021 15:24:59 EST by KEE HERNANDEZ RN) Infectious Disease History Infectious Disease Risk Screening Grid Cough < 2 wks of unknown origin : NO Cough > 2 weeks : NO Blood in Sputum : NO Fever or self-reported Fever : NO Rash of unknown origin : NO Headache : NO Stiff neck : NO Night Sweats : NO Unexplained Weight Loss : NO Diarrhea (3 episode per day) : NO MOSHE VERONICA - 08/13/2021 7:41 EST INF Disease TB Screening Calc : 0 MOSHE VERONICA 08/13/2021 7:41 EST Does patient have symptoms of COVID-19? : No SHERIDAN DIXON RN - 08/11/2021 11:28 EST Has the Patient Been Tested for COVID-19 in the last 14 days? : Yes, Patient stated results Negative MOSHE VERONICA - 08/13/2021 7:41 EST Does the Patient state known exposure to a COVID-19 positive case in the last 14 days? : No SHERIDAN DIXON RN - 08/11/2021 11:28 EST Patient Vaccinated for COVID-19 : Fully vaccinated Physical contact outside [place] in the last 30 days : No Hospitalized in Foreign Country : No Infectious Disease History : Chicken pox/Shingles, Influenza, Measles, Mumps INF Disease Recent Travel Calc : 0 KEE HERNANDEZ RN - 08/10/2021 15:21 EST COVID19 PreProcedure Screening Has patient been isolated since the test : No Exposed to COVID19 symptoms since test? : No MOSHE VERONICA 08/13/2021 7:41 EST Date PreProcedure COVID-19 test known? : No SHERIDAN DIXON RN - 08/11/2021 11:28 EST Is this an Emergent or Add on Procedure? : No KEE HERNANDEZ RN - 08/10/2021 15:21 EST Anesthesia/Transfusion History Family History of Anesthesia Reaction : No prior transfusion(s) Transfusion History : Prior anesthesia without reaction Family History of Anesthesia Reaction : None KEE HERNANDEZ RN - 08/10/2021 15:21 EST Functional Assessment Functional ADL Evaluation Index EBN Bathing : Independent (2) Dressing : Independent (2) Toileting : Independent (2) Transferring Bed or Chair : Independent (2) Continence : Independent (2) Feeding : Independent (2) KEE HERNANDEZ RN - 08/10/2021 15:21 EST ADL Index Score : 12 KEE HERNANDEZ RN - 08/10/2021 15:21 EST Advance Directive Patient has Advance Directive *Q : No, patient refuses Advance Directive information KEE HERNANDEZ RN - 08/10/2021 15:21 EST Spiritual/Cultural Needs Any Spiritual/Cultural Needs or Requests : Yes Spiritual/Cultural Needs Comment : prayer on DOS 08/13/2021 Spiritual/Cultural Needs Comment : prayer on DOS 08/13/2021 KEE HERNANDEZ RN - 08/10/2021 15:21 EST Newberg Suicide Severity Rating Scale (C-SSRS) CSSRS Past Month Wish to be : No CSSRS Past Month Suicidal Thoughts : No CSSRS Lifetime Suicide Behavior : No Suicide Severity Rating Score : 0 Suicide Severity Rating : No Additional Care Required at this time KEE HERNANDEZ RN - 08/10/2021 15:21 EST Psychosocial History Do You Have a History of the Following? : Anxiety Currently in Unsafe Situation : No KEE HERNANDEZ RN - 08/10/2021 15:21 EST Teaching/Learning Assessment Barriers To Learning : None evident SHERIDAN DIXON RN - 08/11/2021 11:28 EST Education Topics, Periop Preadmission Perioperative Education Grid Arrival Time/Place : Verbalizes understanding NPO Status/Directions : Verbalizes understanding Preprocedure Preparations : Verbalizes understanding Preprocedure Tests/Labs : Verbalizes understanding Remove Body Piercings : Verbalizes understanding Responsible Adult : Verbalizes understanding Take/Hold Medications Pre-Procedure : Verbalizes understanding SHERIDAN DIXON RN - 08/11/2021 11:28 EST General Info Preferred Name : Carlos Huizar Family/Rep/Phys Notified of Admit : No Emergency Contact #1 : Sanjay Goodwin Emergency Contact #1 Emergency Contact #1 Relationship : friend Emergency Contact #2 : Ella Hernandes Emergency Contact #2 Emergency Contact #2 Relationship : Mother Chief Complaint : onset of BLE pain w/ walking; progressively worsening: BLE R>L Information Obtained From : Patient Primary Language : Ethiopian Communication Barrier : None Sales Store Checker Needed : No KEE HERNANDEZ RN - 08/10/2021 15:21 EST Desmond Scale Desmond Sensory Perception : Slightly limited Desmond Moisture : Rarely moist Desmond Activity : Walks occasionally Desmond Mobility : Slightly limited Desmond Nutrition : Excellent Desmond Friction and Shear : No apparent problem Desmond Score : 20 KEE HERNANDEZ RN - 08/10/2021 15:21 EST Sleep Apnea Risk Assmt BMI Greater Than 35 kg/m2 : No Neck Circumference Greater Than 40 cm : No STOP-BANG Sleep Apnea Risk Level Score : 3 MOSHE VERONICA - 08/13/2021 8:03 EST Hx of Obstructive Sleep Apnea Diagnosis : No Snore Loudly : No Tired, Fatigued, or Sleepy During Day : No Observed Stopping Breathing During Sleep : No Have/Are Being Treated for Hypertension : Yes Age over 50 Years Old : Yes Gender Male : Yes KEE HERNANDEZ RN - 08/10/2021 15:21 EST Electronically signed by [place] Conversion Customer Response Representative Cerner at 12/13/2022 9:19 AM CDT documented in this encounter Plan of Treatment Not on file documented as of this encounter Visit Diagnoses Not on filedocumented in this encounter
--- OUTSIDE RECORDS SUMMARY | 2025-07-02 07:47 | XMS_ITS | Encounter Summary ---
Author Organization [employer] ([place], [place], [place], [place], [place]) Address [address] [place] [address] Care Team Providers Care Gun Fitter Name Role Phone Unavailable Primary Care Provider Unavailabl e Encounter Details Date Type Department Care Team (Late st Contact Info) Description 08/13/2021 Transcribed Document [facility] [place] [facility] [place] [address] ProviderYari MD [address] [place] [address] Social History Tobacco Use Types [...] Note - Yari Lockett MD - 08/13/2021 1:50 PM MANAGER TALENT MANAGEMENT Patient: ABRAN RENAE Age: 66 Years Sex: Male : 1955 Indication for Surgery 66 year old gentleman referred by Dr. Ponce, a patient of Dr. Yury Brady, with known neurogenic claudication who is referred for worsening BILATERAL calf claudication RIGHT = LEFT. Initially, symptoms started in when he was able to walk 500'. Since January, his claudication has worsened to now 150' distances! He is an active smoker: 1.5PPD x49 years! No family history of ND or CVA. His CTA demonstrates extensive multilevel occlusive disease including nearly occluded RIGHT SECURITY PATROL DRIVER. He was seen and evaluated by Dr. Elliott and reports that he is cleared for surgical procedure. He presents electively at this time for RIGHT SECURITY PATROL DRIVER endarterectomy with SECURITY PATROL DRIVER-BKP bypass and all indicated procedures. *Preoperative Diagnosis RIGHT SECURITY PATROL DRIVER subtotal occlusion RIGHT SFA occlusion RIGHT calf claudication - lifestyle limiting *Postoperative Diagnosis RIGHT SECURITY PATROL DRIVER subtotal occlusion RIGHT SFA occlusion RIGHT calf claudication - lifestyle limiting *Operation RIGHT EIA-PFA endarterectomy RIGHT SECURITY PATROL DRIVER-BKP bypass (6mm ringed [place] Propaten) *Surgeon(s) George Tobin MD [employer] Head Former Muriel Cardona PA-C Anesthesia GETA *Estimated Blood Loss 600cc, 270cc returned as cell saver *Findings Heavily calcified SECURITY PATROL DRIVER which is not pulsatile. Plaque extends proximally into the EIA and distally into the SFA with a relatively soft proximal PFA. BKP is soft. 6mm ringed [place] Propaten tunneled anatomically. Strong biphasic signal in the BKP distal to the anastomosis which is dependant on the bypass. *Specimen(s) RIGHT SECURITY PATROL DRIVER plaque Complications None Technique Patient was lying supine on the operating room table when he surrendered to general anesthesia. The RIGHT groin and circumferential thigh and leg were then prepped and draped in usual sterile fashion. The patient was identified as Abran Renae per time-out protocol. A longitudinal incision was made in the proximal medial leg and dissection was carried down to the level of the BKP which was encircled proximally and distally with vessel loops. The BKP is soft and does not appear to be diseased. Next, attention was turned to the RIGHT groin and a longitudinal incision was made and dissection carried down to the level of the SECURITY PATROL DRIVER. On palpation, the SECURITY PATROL DRIVER is solid without pulsation and plaque tracks to the EIA proximally and continues distally into the SFA. The proximal PFA is soft. The EIA, inferior epigastric, iliac circumflex, lateral femoral circumflex and PFA were encircled with vessel loops. Next, the tunneler was passed from the knee incision into an anatomical plane to the groin and the 6mm ringed graft was passed to the groin. The patient was then systemically heparinized. The SECURITY PATROL DRIVER was controlled and an arteriotomy was made and extended using Tapia scissors. An endarterectomy plane was started in the SECURITY PATROL DRIVER and extended to the EIA proximally with extraction of plaque. There is excellent pulsatile arterial inflow. Next, the endarterectomy plane was traced to the SFA with eversion of the proximal PFA plaque with a sharp edge. The plaque was transected in the proximal SFA. Next, the endarterectomized surface was abraded and stray plaque was extracted. Next, a bovine pericardial patch was sewn into place using 6-0 Prolene in running continuous fashion. Flow was returned to the PFA with excellent pulsatile flow. A portion of the proximal GSV was isolated and skeletonized. Branches were clipped and a small portion of GSV was harvested and the SFJ stump was oversewn with 6-0 Prolene. Next, the SECURITY PATROL DRIVER was controlled and an arteriotomy was made in the distal patch and the graft was prepared for proximal anastomosis which was completed using 6-0 Prolene. After completion, there is an excellent arterial stream from the distal graft. Next, attention was turned to the proximal leg. The graft was then transected and the BKP was then controlled. An arteriotomy was made in the BKP and the 3.5mm aortic punch was used to enlarge the arteriotomy. The distal anastomosis was then completed using 6-0 Prolene in running continuous fashion. There is a strong biphasic signal which is diminished when the bypass graft is clamped. Chasidy and Surgicel snow was liberally applied to the wounds which were then closed in layers using 2-0 and 3-0 Vicryl with 4-0 Monocryl. Dermabond and Aquacel were applied to the incisions. At the end of the case, the sponge and needle counts were reported as correct. Disposition Successful RIGHT ilioprofunda endarterectomy with SECURITY PATROL DRIVER-BKP prosthetic bypass. Palpable DP pulse at the end of the case. To tele for routine post-operative care. Date of Service SN - Proc - Start Time: 08/13/21 10:32:00 (08/13/21 13:07:49) documented in this encounter Plan of Treatment Not on file documented as of this encounter Visit Diagnoses Not on filedocumented in this encounter
--- OUTSIDE RECORDS SUMMARY | 2025-07-02 07:47 | XMS_ITS | Encounter Summary ---
Author Organization [employer] ([place], [place], [place], [place], [place]) Address [address] [place] [address] Care Team Providers Care Wire Spring Relay Adjuster Name Role Phone Unavailable Primary Care Provider Unavailabl e Encounter Details Date Type Department Care Team (Late st Contact Info) Description 08/13/2021 Transcribed Document [facility] [place] [facility] [place] [address] ProviderYari MD [address] [place], [place] [phone] Social History Tobacco Use Types Packs/Day Years Used Date Smoking Tobacco: Never Assessed Sex and Gender Information Value Date Recorded Sex Assigned at Male 02/22/2022 5:28 PM CDT Legal Sex Male 5:28 PM CDT Gender Identity Male 02/22/2022 5:28 PM CDT Sexual Orientation Not on file documented as of this encounter Miscellaneous Notes * Cerner Conversion Note - Yari ProviderMD - 08/13/2021 9:00 PM PUBLIC RECORDS OFFICER Pain Assessment Entered On: 08/14/2021 1:50 EST Performed On: 08/13/2021 20:54 EST by Joanie Boyd Non Emp Traveler RN Intervention Information: celecoxib Performed by Joanie Boyd Non Emp Traveler RN on 08/13/2021 19:54:00 EST celecoxib,200mg Oral Pain Assessment Pain Assessment : Follow-up assessment Pain Scale Goal : 5 Pain Improved by Intervention : Yes Joanie Boyd Non Emp Traveler RN - 08/14/2021 1:50 EST documented in this encounter Plan of Treatment Not on file documented as of this encounter Visit Diagnoses Not on filedocumented in this encounter
--- OUTSIDE RECORDS SUMMARY | 2025-07-02 07:47 | XMS_ITS | Referral Summary ---
Author Organization [employer] ([place], [place], [place], [place], [place]) Address [address] [place] [address] Care Team Providers Care Requisition Approver Name Role Phone Unavailable Primary Care Provider [...]
--- OUTSIDE RECORDS SUMMARY | 2025-07-02 07:47 | XMS_ITS | Encounter Summary ---
Author Organization [employer] ([place], [place], [place], [place], [place]) Address [address] [place] [address] Care Team Providers Care Bull Chain Operator Name Role Phone Unavailable Primary Care Provider Unavailabl e Encounter Details Date Type Department Care Team (Late st Contact Info) Description 08/15/2021 Transcribed Document [facility] [place] [facility] [place] [address] ProviderYari MD [address] [place] [phone] Social History Tobacco Use Types Packs/Day Years Used Date Smoking Tobacco: Never Assessed Sex and Gender Information Value Date Recorded Sex Assigned at Male 02/22/2022 5:28 PM CDT Legal Sex Male 5:28 PM CDT Gender Identity Male 02/22/2022 5:28 PM CDT Sexual Orientation Not on file documented as of this encounter Miscellaneous Notes * Cerner Conversion Note - Yari ProviderMD - 08/15/2021 12:55 PM MEDIA RELATIONS MANAGER Final Discharge Planning Entered On: 08/15/2021 12:55 EST Performed On: 08/15/2021 12:55 EST by DHRUV CONRAD, RN-Branch Lead Final Discharge Planning Discharge Arrangements : Patient Post-Acute Information Patient Name: ABRAN RENAE Gender: Male : [birth year] Age: 66 Years No Post-Acute Placement(s) Listed No Post-Acute Service(s) Listed No [place] Referral(s) Listed Discharge To Care Management : Home/Residential/Detention or Self Care -01 DHRUV CONRAD, RN-Branch Lead - 08/15/2021 12:55 EST Electronically signed by Sergio, [facility] Conversion Gluing Machine Operator Automatic Cerner at 12/13/2022 9:30 AM CDT documented in this encounter Plan of Treatment Not on file documented as of this encounter Visit Diagnoses Not on filedocumented in this encounter
--- OUTSIDE RECORDS SUMMARY | 2025-07-02 07:47 | XMS_ITS | Encounter Summary ---
Author Organization [employer] ([place], [place], [place], [place], [place]) Address [address] [place] [address] Care Team Providers Care Fine Arts Chair Name Role Phone Unavailable Primary Care Provider Unavailabl e Encounter Details Date Type Department Care Team (Late st Contact Info) Description 08/13/2021 Transcribed Document [facility] [place] [facility] [place] [address] ProviderYari MD [address] [place] [phone] Social History Tobacco Use Types Packs/Day Years [...] - Historical ProviderMD - 08/13/2021 4:24 PM TELEGRAPHIC INSTRUMENT SUPERVISOR Pain Assessment Entered On: 08/14/2021 1:50 EST Performed On: 08/14/2021 0:31 EST by Joanie Boyd Non Emp Traveler RN Intervention Information: ketorolac Performed by Joanie Boyd Non Emp Traveler RN on 08/14/2021 00:01:00 EST ketorolac,30mg IV Push,Peripheral Line 1,Pain (Moderate 4-6) Pain Assessment Pain Scale Goal : 5 Pain Improved by Intervention : Yes Joanie Boyd Non Emp Traveler RN - 08/14/2021 1:50 EST documented in this encounter Plan of Treatment Not on file documented as of this encounter Visit Diagnoses Not on filedocumented in this encounter
--- OUTSIDE RECORDS SUMMARY | 2025-07-02 07:47 | XMS_ITS | Encounter Summary ---
Author Organization Healthcare Address [address] [place] [address] Care Team Providers Care Manager Activities Name Role Phone Fortunato Vasquez DO Primary Care Provider [phone] Jean Marie Burr MD Unavailable [phone] Encounter Details Date Type Department Care Team (Late st Contact Info) Description 02/05/2024 Orders Only External Location [address] [place] [address] Fortunato Vasquez DO [address] [place] [address] Social History Tobacco Use Types Packs/Day Years Used Date Smoking Tobacco: Never Assessed Sex and Gender Information Value Date Recorded Sex Assigned at Not on file Legal Sex Male 8:20 PM EDT Gender Identity Not on file Sexual Orientation Not on file documented as of this encounter Plan of Treatment Not on file documented as of this encounter Procedures Procedure Name Priority Date/Time Associated Diagnosis Comments CT OUTSIDE IMAGES 02/05/2024 7:04 AM EDT documented in this encounter Results * CT OUTSIDE IMAGES (02/05/2024 7:04 AM EDT) Anatomical Region Laterality Modality Computed Tomogra phy 02/05/2024 7:04 AM EDT Fortunato Vasquez DO IMG CT PROCEDURES Final Result documented in this encounter Visit Diagnoses Not on filedocumented in this encounter Care Teams Manager Activities Relationship Specialty Start Date End Date Fortunato Vasquez DO [address] [place] [address] PCP - General 03/15/24 Jean Marie Burr MD [address] [place] [address] Referring Physician 03/15/24 documented as of this encounter
--- OUTSIDE RECORDS SUMMARY | 2025-07-02 07:47 | XMS_ITS | Encounter Summary ---
Author Organization [employer] ([place], [place], [place], [place], [place]) Address [address] [place] [address] Care Team Providers Care Auto Research Engineer Name Role Phone Unavailable Primary Care Provider Unavailabl e Encounter Details Date Type Department Care Team (Late st Contact Info) Description 08/13/2021 Transcribed Document [facility] [place] Family Medicine [facility] [place] [address] ProviderYari MD [facility] [place] [address] Social History Tobacco Use Types [...] Conversion Note - Historical ProviderMD - 08/13/2021 4:43 PM CONVEYOR LINE BATTERY CHARGER Admission History, Adult Entered On: 08/13/2021 16:45 EST Performed On: 08/13/2021 16:43 EST by Shana Hui Lpn Advance Directive Patient has Advance Directive *Q : No, patient refuses Advance Directive information Shana Hui Lpn - 08/13/2021 16:43 EST Anesthesia/Transfusion History Family History of Anesthesia Reaction : No prior transfusion(s) Transfusion History : Prior anesthesia without reaction Family History of Anesthesia Reaction : None Shana Hui Lpn - 08/13/2021 16:43 EST Functional Assessment Living Situation : Home Current Home Treatments : None Shana Hui Lpn - 08/13/2021 16:43 EST General Info Preferred Name : Carlos [...] Obtained From : Patient Primary Language : Turkmen Communication Barrier : None Coffee Machine Technician Needed : No Shana Hui Lpn - 08/13/2021 16:43 EST Fall Risk Scales ABCs Fall Injury Risk Identification : Coagulation, Surgery ABC Fall Injury Risk : Moderate to high injury risk Injury Moderate to High Risk Interventions : Specialty low bed, Transport methods appropriate to patient STERLING Hx Falls Immediate/Within 3 Months : No Sterling Secondary Diagnosis : Yes STERLING Use of Ambulatory Aid : None STERLING IV Therapy or IV Access : Yes [place] Gait/Transferring : Weak [place] Mental Status : Oriented to own ability [place] Fall Risk Score : 45 [place] Fall Scale Risk Level : 25-45 Medium Risk [place] Fall Interventions : Adequate lighting, Assistive devices within reach, Bed in low position, Call device within reach, Hourly comfort/safety rounds, Non-slip footwear, Personal items within reach, Reinforced to call for assistance before getting out of bed, Room free of clutter/spills, Upper side-rails up, Wheels locked, Wires/Cords secured Barriers to Learning : None evident Fall Risk Scale Calc Temp : 0 Shana Hui Lpn - 08/13/2021 16:43 EST Health Histories Smoking Status : 10 or more cigarettes (1/2 pack or more)/day in last 30 days Smokeless Tobacco Status : Never Desires Tobacco Cessation Medication : Yes Implant/Device Type, Upholstery Sewer and Model : spinal cord stimulator Shana Hui Lpn - 08/13/2021 16:43 EST Social History (As Of: 08/13/2021 16:45:15 EST) Tobacco: 10 or more cigarettes (1/2 [...] 08/10/2021 15:24:59 EST by KEE HERNANDEZ RN) Height and Weight, Clinical Dosing Height Source : Chart Height Entry Format : [place] Height, Feet : 5 ft(Converted to: 152 cm, 60 Inch) Height, Inches : 6.5 Inch(Converted to: 0 ft 7 Inch, 16.51 cm) Clinical Height : 168.91 cm Weight Source : Standing scale Weight Entry Format : [place] Clinical Dosing Weight : 83.64 kg Weight, Pounds : 184 lb Body Surface Area (BSA) : 1.94 m2 Body Mass Index : 29.3 kg/m2 (HI) Spearman Body Weight : 64 kg Shana Hui Lpn - 08/13/2021 16:43 EST Infectious Disease History Does patient have symptoms of COVID-19? : No Has the Patient Been Tested for COVID-19 in the last 14 days? : Yes, Patient stated results Negative Does the Patient state known exposure to a COVID-19 positive case in the last 14 days? : No Patient Vaccinated for COVID-19 : Fully vaccinated Shana Hui Lpn - 08/13/2021 16:43 EST Infectious Disease Risk Screening Grid Cough < 2 wks of unknown origin : NO Cough > 2 weeks : NO Blood in Sputum : NO Fever or self-reported Fever : NO Rash of unknown origin : NO Headache : NO Stiff neck : NO Night Sweats : NO Unexplained Weight Loss : NO Diarrhea (3 episode per day) : NO Shana Hui Lpn - 08/13/2021 16:43 EST Physical contact outside [place] in the last 30 days : No Hospitalized in Foreign Country : No Infectious Disease History : Chicken pox/Shingles, Influenza, Measles, Mumps INF Disease TB Screening Calc : 0 INF Disease Recent Travel Calc : 0 Shana Hui Lpn 08/13/2021 16:43 EST Influenza Vaccine Asmt, Adult Previous Vaccines from Immunization Schedule : No qualifying data available. Influenza Immunization, Current Season : No Inactivated Flu Vaccine Contraindications : No contraindications to inactivated influenza vaccine Transplant Workup/Recent Transplant : No Order for Influenza Vaccine : Order for influenza vaccine sent to pharmacy Shana Hui Lpn - 08/13/2021 16:43 EST Pneumococcal Vaccine Previous Vaccines from Immunization Schedule : No qualifying data available. Pneumonia Immunization Received : No Pneumococcal Risk Assessment < Age 65 : N/A- Patient 65 years of age or older Pneumococcal Vaccine Contraindications : No contraindications to pneumococcal vaccine Transplant Workup/Recent Transplant : No Order for Pneumococcal Vaccine : Declined Vaccination Shana Hui Lpn - 08/13/2021 16:43 EST Order Details Order Detail : N/A Patient Needs Meds Crushed/Liquid : No Shana Hui Lpn - 08/13/2021 16:43 EST Nutrition History Eating Poorly Due to Decreased Appetite : No Unplanned Weight Loss in Past 3-6 Months : No Malnutrition Screening Tool Total(mal) : 0 Malnutrition Screening Tool Risk Level : Patient not at risk Shana Hui Lpn - 08/13/2021 16:43 EST [place] Suicide Severity Rating Scale (C-SSRS) CSSRS Past Month Wish to be : No CSSRS Past Month Suicidal Thoughts : No CSSRS Lifetime Suicide Behavior : No Suicide Severity Rating Score : 0 Suicide Severity Rating : No Additional Care Required at this time Shana Hui Lpn - 08/13/2021 16:43 EST Psychosocial History Do You Have a History of the Following? : Anxiety Currently in Unsafe Situation : No Shana Hui Lpn - 08/13/2021 16:43 EST Sleep Apnea Risk Assmt Hx of Obstructive Sleep Apnea Diagnosis : No Snore Loudly : No Tired, Fatigued, or Sleepy During Day : No Observed Stopping Breathing During Sleep : No Have/Are Being Treated for Hypertension : Yes BMI Greater Than 35 kg/m2 : No Age over 50 Years Old : Yes Neck Circumference Greater Than 40 cm : No Gender Male : Yes STOP-BANG Sleep Apnea Risk Level Score : 3 Shana Hui Lpn - 08/13/2021 16:43 EST Valuables and Belongings Valuables and Belongings : Clothing Clothing : Common streetwear Clothing Disposition : With patient Shana Hui Lpn - 08/13/2021 16:43 EST Electronically signed by Sergio [facility] Conversion Relationship Specialist Cerner at 12/13/2022 9:25 AM CDT documented in this encounter Plan of Treatment Not on file documented as of this encounter Visit Diagnoses Not on filedocumented in this encounter
--- OUTSIDE RECORDS SUMMARY | 2025-07-02 07:47 | XMS_ITS | Encounter Summary ---
Author Organization [employer] ([place], [place], [place], [place], [place]) Address [address] [place] [address] Care Team Providers Care Net Coordinator Name Role Phone Unavailable Primary Care Provider Clark e Encounter Details Date Type Department Care Team (Late st Contact Info) Description 08/15/2021 Transcribed Document [facility] [place] Family Medicine [facility] [place] [address] ProviderYari MD [facility] [address] Social History Tobacco Use Types [...] Conversion Note - Historical ProviderMD - 08/15/2021 2:00 AM URGENT CARE PHYSICIAN ASSISTANT Medical Information Specialist Details Entered On: 08/15/2021 4:16 EST Performed On: 08/15/2021 2:00 EST by Fern Painter Rn-Traveler Order Details Transport Mode Order Detail : Wheelchair Isolation Precautions Order Detail : Standard Precautions Order Detail : N/A IV Order Detail : 1 Nurse Collect Order Detail : 0 Lift/Transfer : Independent Central Line Order Detail : No Room Service : Appropriate Arterial Line : No Patient Needs Meds Crushed/Liquid : No Fern Painter Rn-Traveler - 08/15/2021 4:16 EST documented in this encounter Plan of Treatment Not on file documented as of this encounter Visit Diagnoses Not on filedocumented in this encounter
--- OUTSIDE RECORDS SUMMARY | 2025-07-02 07:47 | XMS_ITS | Encounter Summary ---
Author Organization [employer] ([place], [place], [place], [place], [place]) Address [address] [place] [address] Care Team Providers Care Algologist Name Role Phone Unavailable Primary Care Provider Unavailabl e Encounter Details Date Type Department Care Team (Late st Contact Info) Description 08/16/2021 Transcribed Document [facility] [place] [facility] [place] [address] ProviderYari MD [address] [place] [id number] Social History Tobacco Use Types Packs/Day Years Used Date Smoking Tobacco: Never Assessed Sex and Gender Information Value Date Recorded Sex Assigned at Male 02/22/2022 5:28 PM CDT Legal Sex Male 5:28 PM CDT Gender Identity Male 02/22/2022 5:28 PM CDT Sexual Orientation Not on file documented as of this encounter Miscellaneous Notes * Cerner Conversion Note - Yari ProviderMD - 08/16/2021 10:12 AM DURABILITY TECHNICIAN Patient Resource Center Entered On: 08/16/2021 10:13 EST Performed On: 08/16/2021 10:12 EST by Chelsie Tony, AUDIO EXPERIENCE EXPERT Patient Resource Center Provider Status : EST Other Established Provider Name : Yury Brady Patient Phone Number : [phone] Patient Insurance Type : Medicare Source of Referral : Case management Location of Patient : Case management referral Primary Care Scheduled : No Specialty Care Scheduled : Yes Specialty Type Scheduled2 : Vascular surgery Vascular Surgery Provider Name : George Tobin Vascular Surgery Appointment Date/Time : 08/30/2021 10:00 EST Qualify for Diabetes and/or Nutrition Referral : No Wound Care Appointment Made : No Why Patient Visited ED- Specialty spent : Other How Patient Arrived at ED : Other Primary Language : [place] Patient Resource Center Comment : Surgical follow up appt has been made, pt contacted Follow Up Needed : Chelsie Meier, AUDIO EXPERIENCE EXPERT - 08/16/2021 10:12 EST Electronically signed by Sergio, [facility] Conversion Lock Technician Cerner at 12/13/2022 9:27 AM CDT documented in this encounter Plan of Treatment Not on file documented as of this encounter Visit Diagnoses Not on filedocumented in this encounter
== END 2025-06-30 23:59 ==
LOC: LAB.DROPOF 07-02 07:44
PROVIDERS: PCP Family Medicine; Visit Provider Family Medicine
DX: E78.5 Hyperlipidemia, unspecified (principal); I25.10 Atherosclerotic heart disease of native coronary artery without angina pectoris; R73.03 Prediabetes
CPT/HCPCS: 80053; 80061; 83036